=== PATIENT | female | born 1945 | race Caucasian/White ===

== ENCOUNTER → 2017-11-13 12:18 | Outpatient (CLI) | payer MEDICARE, OTHER, SELFPAY ==
--- NOTE | 2017-11-13 | DI.MG.S_ITS ---
BILATERAL DIGITAL SCREENING MAMMOGRAM 3D/2D WITH CAD: 11/13/2017 CLINICAL: Routine screening. Comparison is made to exams dated: 11/06/2016 mammogram, 11/06/2015 mammogram, and 10/27/2014 mammogram - [facility]. There are scattered fibroglandular elements in both breasts. Current study was also evaluated with a Computer Aided Detection (CAD) system. No significant masses, calcifications, or other findings are seen in either breast. There has been no significant interval change. IMPRESSION: NEGATIVE There is no mammographic evidence of malignancy. A 1 year screening mammogram is recommended. This exam was interpreted at Station ID: [id number]. NOTE: For mammograms, a report in lay terms will be sent to the patient. Approximately 15% of breast malignancies will not be visualized mammographically. In the management of a palpable breast mass, a negative mammogram must not discourage biopsy of a clinically suspicious lesion. Electronically Signed By: Kee chacon/candido:11/13/2017 14:55:11 copy to: Paulette Graham letter sent: Normal Exam ACR BI-RADS Category 1: Negative 3341F
== END ==
PROVIDERS: Family Provider Obstetrics & Gynecology; PCP Family Medicine; Visit Provider Family Medicine
DX: Z12.31 Encounter for screening mammogram for malignant neoplasm of breast (principal)
CPT/HCPCS: 77063; 77067

== ENCOUNTER → 2017-11-24 16:30 | Outpatient (CLI) | payer MEDICARE, OTHER, SELFPAY ==
--- NOTE | 2017-11-24 16:33 | DI.RAD.S_ITS ---
PROCEDURE: XR LUMBAR SPINE 2-3V INDICATIONS: LOW BACK PAIN TECHNIQUE: 3 views of the lumbar spine were acquired. COMPARISON: [facility], MANISHA, SPINE LUMB 2 OR 3VW, 10/02/2016, 15:54. [facility], MANISHA, L-SPINE 2-3 VIEWS, 12/28/2015, 12:26. FINDINGS: Bones: 5 [id number] vertebrae are present. There is accentuated lordosis with mild retrolisthesis at L1-2 and L2-3. Disc spacers at L4-5 and L5-S1 with posterior fixation hardware appearing intact. Disc narrowing L1-2 and L2-3. No evidence of loosening.. No vertebral body compression fractures. No suspicious bony lesions. Soft tissues: Overlying bowel gas pattern is normal. No suspicious soft tissue calcifications. Surgical clips right upper quadrant. Mild vascular calcifications. IMPRESSION: 1. Postoperative changes appear stable. 2. Degenerative disc disease and mild retrolisthesis L1-L2 3, unchanged. Dictated by: Driss Ames M.D. on 11/24/2017 at 16:51 Approved by: Driss Ames M.D. on 11/24/2017 at 16:54
== END ==
PROVIDERS: Family Provider Obstetrics & Gynecology; PCP Family Medicine; Referring Provider Orthopaedic Surgery Orthopaedic Surgery of the Spine; Visit Provider Family Medicine
DX: M51.36 Other intervertebral disc degeneration, lumbar region (principal); M54.5 Low back pain
CPT/HCPCS: 72100

== ENCOUNTER → 2018-02-15 12:49 | Outpatient (CLI) | payer MEDICARE, OTHER, SELFPAY ==
--- NOTE | 2018-02-15 | DI.US.S_ITS ---
PROCEDURE: US PELVIC COMPLETE INDICATIONS: OVARIAN CYST TECHNIQUE: Real-time scanning was performed of the pelvic organs, with image documentation. Additional endovaginal scanning was necessary due to incomplete visualization of the adnexal and endometrial structures by transabdominal scanning. COMPARISON: [facility], , PELVIC COMPLETE, 10/08/2016, 12:23. FINDINGS: Transabdominal scanning: Limited scanning through the kidneys shows no hydronephrosis. No pathologic free abdominal or pelvic fluid. Endovaginal scanning: Uterus: Uterus is normal in size at 5.9 x 3.1 x 4.1 cm. The endometrium measures 5.5 mm in combined thickness. Ovaries: Simple cyst again seen arising from the left adnexa slightly increased in size measuring 4.3 x 2.4 x 3.3 cm. No normal ovarian tissue seen bilaterally. IMPRESSION: Simple left adnexal cystic structure redemonstrated and is slightly increased in size from prior examination. Cystic ovarian neoplasm remains within the differential diagnosis in a patient of this age. If indicated, a pre and post contrast gynecologic protocol MRI could be performed (assuming that there is no contraindication). Dictated by: Robbin MYERS Interpreted: Doug Phipps MD on 02/15/2018 at 14:08 Approved by: Doug Phipps M.D. on 02/15/2018 at 15:20
== END ==
PROVIDERS: Family Provider Obstetrics & Gynecology; PCP Family Medicine; Visit Provider Family Medicine
DX: N83.202 Unspecified ovarian cyst, left side (principal); N83.292 Other ovarian cyst, left side
CPT/HCPCS: 76830; 76856

== ENCOUNTER → 2018-07-14 15:19 | Outpatient (CLI) | payer MEDICARE, OTHER, SELFPAY ==
[2018-07-14 15:56] LABS: Alanine Aminotransferase 29 IU/L (9-52); Albumin 4.4 g/dL (3.5-5.0); Albumin Globulin Ratio 1.7 (1.0-2.8); Alkaline Phosphatase 74 U/L (38-126); Aspartate Aminotransferase 46 IU/L (14-36); BUN Creatinine Ratio 25.5 (6-22); Bilirubin Total 0.4 mg/dL (0.2-1.3); Blood Urea Nitrogen 28 mg/dL (7-17); Calcium 9.6 mg/dL (8.4-10.2); Carbon Dioxide 26 mmol/L (22-32); Chloride 102 mmol/L (98-107); Globulin 2.6 g/dL (1.7-4.1); Glucose 137 mg/dL (80-110); HEMOLYSIS < 15 (0-50); Potassium 4.9 mmol/L (3.4-5.1); Sodium 138 mmol/L (137-145)
[2018-07-14 15:57] LABS: C-Reactive Protein Quant < 0.5 mg/dL (<1.0)
[2018-07-14 16:15] LABS: Erythrocyte Sedimentation Rate 36 MM/HR (0-20)
== END ==
PROVIDERS: Family Provider Obstetrics & Gynecology; PCP Family Medicine; Visit Provider Physician Assistant Medical
DX: M12.9 Arthropathy, unspecified (principal)
CPT/HCPCS: 36415; 80053; 85651; 86140

== ENCOUNTER → 2018-08-09 10:49 | Outpatient (CLI) | payer MEDICARE, OTHER, SELFPAY ==
--- NOTE | 2018-08-09 | DI.US.S_ITS ---
PROCEDURE: US RENAL COMPLETE INDICATIONS: TYPE 2 DIABETES WITH RENAL COMPLICATIONS TECHNIQUE: Real-time scanning was performed of the kidneys and bladder, with image documentation. COMPARISON: [facility], , RENAL COMPLETE, 09/28/2006, 14:29. FINDINGS: Kidneys: Kidneys are normal in size. Right kidney measures 11.1 cm long; left kidney measures 11.3 cm long. Right renal cortical thickness is 1.4 cm; left renal cortical thickness is 1.5 cm. Renal cortical echotexture is normal. No hydronephrosis or nephrolithiasis. No suspicious solid mass lesions. 3.4 x 2.6 x 2.5 cm thin-walled, cystic lesion arises from the lower pole of the left kidney. A 1.1 cm cortical cyst is present in the mid pole. Bladder: Pre-void bladder volume is 597 mL. Post-void residual is 64 mL. Pre-void images demonstrate no intraluminal masses or stones. On pre-void images, neither ureteral jets are noted with color Doppler interrogation. (Of note, ureteral jets may not be detectable in up to 25% of cases due to insufficient differences in specific gravity between ureteral and bladder urine). Miscellaneous: No free pelvic fluid. IMPRESSION: 1. Interval enlargement of simple left renal cyst since the previous study, expected. 2. Otherwise normal renal morphology. 3. Moderate sized postvoid residual in the urinary bladder. Dictated by: Kasie Romero M.D. on 08/09/2018 at 13:48 Approved by: Kasie Romero M.D. on 08/09/2018 at 13:50
== END ==
PROVIDERS: PCP Family Medicine; Visit Provider Family Medicine
DX: E11.29 Type 2 diabetes mellitus with other diabetic kidney complication (principal); N28.9 Disorder of kidney and ureter, unspecified; N28.1 Cyst of kidney, acquired
CPT/HCPCS: 76770

== ENCOUNTER → 2018-10-04 13:08 | Outpatient (CLI) | payer MEDICARE, OTHER, SELFPAY ==
--- NOTE | 2018-10-04 | DI.CT.S_ITS ---
PROCEDURE: CT LUMBAR SPINE WO CON INDICATIONS: Spondylolisthesis, lumbar region TECHNIQUE: Noncontrast 3 mm thick sections acquired from the T12 level to the sacrum. Sagittal and coronal reformats were constructed. For radiation dose reduction, the following was used: automated exposure control. COMPARISON: [facility], , L-SPINE 2-3 VIEWS, 12/28/2015, 12:26. [facility], MR, L-SPINE WITHOUT CONTRAST, 01/09/2012, 10:42. [facility], MR, L-SPINE WITHOUT CONTRAST, 01/01/2010, 19:25. [facility], MR, L-SPINE WITHOUT CONTRAST, 09/17/2015, 14:16. [facility], MR, L-SPINE WITHOUT CONTRAST, 02/09/2014, 15:53. [facility], , XR LUMBAR SPINE 2-3V, 11/24/2017, 16:33. FINDINGS: Image quality: Diagnostic. Bones: No acute vertebral body compression fractures. No suspicious lytic or blastic bony lesions. Central spinal caliber is of normal overall caliber. No pars defects. Postoperative changes are seen, with bilateral pedicle screws at L4, L5, and S1. The screws appear well placed. Vertical fixation rods are seen. Disc spacers are seen at L4-L5 and L5-S1. There is streak artifact associated with the metallic hardware. There has been removal of portions of the posterior elements. T12-L1: No significant abnormality is seen, although note is made of bridging endplate osteophytes anteriorly. L1-L2: Mild loss of disc height is seen. Bridging endplate osteophytes are seen anteriorly. There is mild to moderate right-sided and no significant left-sided neural foraminal narrowing seen. L2-L3: Minimal retrolisthesis is seen at this level. There is mild loss of disc height seen. Endplate irregularity is seen, including posteriorly directed endplate osteophytes, as on series 4 image 30. Moderate disc bulge is seen. There is moderate bilateral neural foraminal narrowing seen. Moderate to severe central canal narrowing is seen, as on series 8 image 37. There are central canal narrowing appears progressed compared to 2016. L3-L4: Minimal retrolisthesis is seen at this level. Moderate loss of disc height is seen. Endplate irregularity and sclerosis can be seen. Vacuum disc phenomenon is seen at this level. Moderate to prominent disc bulge is seen at this level. Moderate to severe bilateral neural foraminal narrowing is seen. Moderate to severe central canal narrowing is seen. These degenerative changes have progressed compared to the prior MRI. L4-L5: Postoperative changes are seen at this level. [id number] bilateral neural foraminal narrowing is seen. No significant central canal narrowing is seen. This level overall appears improved compared to 2016. L5-S1: Postoperative changes are seen at this level. Prominent facet hypertrophy is seen. There is moderate right-sided and mild to moderate left-sided neural foraminal narrowing seen. No significant central canal narrowing is seen. This level appears improved compared to the preoperative 2016 MRI. Soft tissues: No retroperitoneal masses or hematomas. Visualized aorta is normal in caliber. Atherosclerotic calcification is noted. Cholecystectomy clips are seen. IMPRESSION: Lumbosacral postoperative changes are seen, with improvement in the degrees of degenerative narrowing compared to the preoperative MRI. Progression of degenerative change at L2-L3 and L3-L4 compared to 2016. Dictated by: Doug Phipps M.D. on 10/04/2018 at 15:29 Approved by: Doug Phipps M.D. on 10/04/2018 at 15:39
== END ==
PROVIDERS: PCP Family Medicine; Visit Provider Orthopaedic Surgery Orthopaedic Surgery of the Spine
DX: M43.16 Spondylolisthesis, lumbar region (principal); M47.816 Spondylosis without myelopathy or radiculopathy, lumbar region
CPT/HCPCS: 72131

== ENCOUNTER → 2018-11-30 09:06 | Outpatient (CLI) | payer MEDICARE, OTHER, SELFPAY ==
--- NOTE | 2018-11-30 | DI.MG.S_ITS ---
BILATERAL DIGITAL SCREENING MAMMOGRAM 3D/2D WITH CAD: 11/30/2018 Comparison is made to exams dated: 11/13/2017 mammogram, 11/06/2016 mammogram, and 11/06/2015 mammogram - [facility]. There are scattered fibroglandular elements in both breasts. Current study was also evaluated with a Computer Aided Detection (CAD) system. No significant masses, calcifications, or other findings are seen in either breast. There has been no significant interval change. IMPRESSION: NEGATIVE There is no mammographic evidence of malignancy. A 1 year screening mammogram is recommended. This exam was interpreted at Station ID: [id number]. NOTE: For mammograms, a report in lay terms will be sent to the patient. Approximately 15% of breast malignancies will not be visualized mammographically. In the management of a palpable breast mass, a negative mammogram must not discourage biopsy of a clinically suspicious lesion. Electronically Signed By: Shalom roberts/candido:11/30/2018 12:22:01 letter sent: Normal Exam ACR BI-RADS Category 1: Negative 3341F
== END ==
PROVIDERS: PCP Family Medicine; Visit Provider Family Medicine
DX: Z12.31 Encounter for screening mammogram for malignant neoplasm of breast (principal)
CPT/HCPCS: 77063; 77067

== ENCOUNTER → 2019-01-30 13:50 | Outpatient (CLI) | payer MEDICARE, OTHER, SELFPAY | PROVIDERS: PCP Family Medicine; Visit Provider Physician Assistant | DX: N30.01 Acute cystitis with hematuria (principal) | CPT/HCPCS: 87077; 87086; 87185; 87186 ==

== ENCOUNTER 2019-04-04 06:05 | Inpatient (IN) | payer MEDICARE, OTHER, SELFPAY ==
[2019-03-16 13:44] VITALS: BMI 30.7
[2019-04-04] VITALS (16 sets, daily range): BP systolic 134–179; BP diastolic 56–86; PULSE 69–97; RESP 9–18; TEMP 36.1–37.2; O2SAT 93–100; BMI 30.7
--- NOTE | 2019-04-04 | DI.RAD.S_ITS ---
PROCEDURE: XR LUMBAR SPINE 2-3V INDICATIONS: L3-4 TLIF WITH FUSION TECHNIQUE: 2 views of the lumbar spine were acquired. COMPARISON: [facility], RF, LUMBAR TRANSFORAMINAL LUKAS, 11/09/2018, 10:38. [facility], CR, XR LUMBAR SPINE 2-3V, 11/24/2017, 16:33. FINDINGS: There is discectomy and posterior fusion at L3-L4. Prior discectomy and posterior fusion at L4-L5 and L5-S1. IMPRESSION: Discectomy and posterior fusion at L3-L4. Dictated by: Hope Caputo M.D. on 04/04/2019 at 13:19 Approved by: Hope Caputo M.D. on 04/04/2019 at 13:36
[2019-04-04] MEDS: LACTATED RINGERS 1,000 ML 42 ML IV ×2 (07:24→10:35)
[2019-04-04] MEDS: CLINDAMYCIN 600 MG/50 ML PIGGYBACK 50 MG IV (07:58)
--- NOTE | 2019-04-04 07:58 | PM.PREOP ---
Pre-operative Note Interval Note History & Physical reviewed/Exam performed by Physician: Yes Changes to H&P: No
--- NOTE | 2019-04-04 08:35 | SUR.OPER ---
Prone on spine table, head in foam head support, padded chest and pelvic supports, gel pad at knees, lower legs supported by pillows; nipples, genitalia and toes free of pressure, arms secured on foam padded arm boards at <90 degrees abduction. Tape over blanket at thigh secured to table.
[2019-04-04] MEDS: BUPIVACAINE 0.25% W/ EPI 30 ML VIAL INJ (08:43)
[2019-04-04] MEDS: BUPIVACAINE LIPOSOME 266 MG/20 ML VIAL INJ (08:44)
[2019-04-04] MEDS: ACETAMINOPHEN IV 1,000 MG/100 ML VIAL 400 MG IV (10:50)
--- NOTE | 2019-04-04 10:53 | PC.NURSE ---
Day shift: Pt not on AC unit at this time.
--- NOTE | 2019-04-04 11:42 | PM.OP.1 ---
Operative Date/Time/Diagnoses Date of procedure: 04/04/19 Time of procedure: 08:08 Pre-op diagnosis: 1. Hx of L4-S1 TLIF 2. L3-4 spondylolisthesis, spinal stenosis 3. L3-S1 spondylosis with radiculopathy Post-op diagnosis: same Procedure & Clinicians Procedure: 1. L3-4 Postero-lateral and posterior interbody fusion 2. L3-4 interbody cage placement. 3. L3-4 decompressive laminectomy with bilateral facetecomies 4. L3-4 L4-5 L5-S1 Posterior segmental instrumentation 5. L4-5 L5-S1 posterior segmental hardware removal 6. L4-5 L5-S1 exploration of fusion with left hemilaminectomy 7. L4-5 posterolateral fusion 8. Chilmark of bone marrow from iliac crest 9. Utilization of microsurgical technique and operating microscope Same procedure as scheduled: Yes Indications: Patient has been having chronic back pain and worsening lumbar radiculopathy. Patient failed multiple conservative management with worsening pain weakness and numbness in her lower extremity. Patient has been having difficulty performing activity of daily living. After discussing risks benefits of treatment options, patient elected proceed with surgery. Surgeon: Ian Andrade Oxygen Plant Operator: Lorraine Pereira Click Yes if Unassisted: No Anesthesia Type: General Operative Notes Closure Type: primary Specimen(s): none sent Prosthetic devices, grafts, tissues, transplants, or devices: Globus revolve screws, Rise cage Applied: catheter Estimated Blood Loss (mL): 100 Blood products transfused: none Procedure in detail: Patient was seen in the preoperative area. Risks and benefits of the surgery was discussed with the patient. Informed consent was obtained from the patient and placed in the chart. Surgical site was marked. Patient was taken to the operative room. General anesthesia was administered. Prophylactic antibiotic was given to the patient less than 30 min before the incision was made. Patient was placed into a prone position on the Costa table. Patient's back was then prepped and draped in the sterile fashion. Time-out was performed at this time. Using patient's previous scar incision was made over the L3-S1 interval on the left side. Fascia was incised in line with skin incision. Patient's previously placed hardware over the L4-S1 level was identified by dissecting down to the level the hardware using a Bovie and a Barnhart. The locking caps which was removed using globus screwdriver. The locking jordan was then removed from the tulips of the pedicle screws using a Erica. The pedicle screws were then removed using the screwdriver. The screws were found to have good purchase. The Globus and MARS retractors was then placed into the wound and docked onto the L3 lamina using C-arm guidance. Using microsurgical technique and operating microscope a laminectomy facetectomy was performed by removing the L3 lamina and the L3-4 facet. Patient was found have severe central and foramen stenosis at L3-4 level which was fully decompressed after the laminectomy facetectomy is complete. The disc space at L3-4 level was identified next. And a total diskectomy was performed at L3-4 level. The endplates were decorticated using a rasp and shaver. The total diskectomy and decortication was performed at L3-4 level in order to to accomplish a L3-4 fusion. The local bone from the laminectomy and facetectomy was saved for local bone grafting. After the total diskectomy and decortication was completed, DBM bone graft material was combined with local bone that was harvested earlier. At this time, a separate skin is incision was made over the iliac crest. A Jamshidi needle was inserted into the iliac crest through a separate skin incision. 5 cc of bone marrow aspiration was obtained through the separate skin incision using a Jamshidi needle from the iliac crest. The bone marrow aspiration was combined with local bone and the via cell bone grafting material. The bone grafting material was placed into the L3-4 interbody space along with a expandable cage. The cage was expanded to its maximum height using the torque limiting screwdriver. At this time a mirror image incision was made on the left side. The fascia was incised in line with the skin incision. Patient's previously placed hardware on the left side was then removed in the same fashion as it was on the right side. The hardware was also found to have good purchase. The fusion mass on the right side was exposed by performing a right-sided hemilaminectomy at L4-5 L5-S1 level. The hemilaminectomy was performed using the Kerrison rongeur to undercut the lamina as well removing additional epidural scar tissue for purpose of decompressing the epidural space. The fusion mass was explored and was found have visible motion indicating pseudoarthrosis at L4-5 level and a solid fusion at L5-S1 level. Globus MARS retractor was inserted and docked onto the L3-4 L4-5 posterolateral gutter. Using the power drill, posterior-lateral decortication was performed at L3-4 L4-5 level until bleeding cortical bone was identified. The remaining bone grafting material was placed into the L3-4, L4-5 posterior lateral gutter he order to accomplish posterolateral fusion at the L3-4 L4-5 level. Using the double C-arm technique, pedicle screws were placed into the L3,L4, L5 and S1 pedicles bilaterally. This was done by placing the Jamshidi needle into the pedicles, then placing the guidewires over the Jamshidi needle, and finally placing the cannulated screws over the guidewires bilaterally. After the pedicle screws were placed, 2 titanium rods was locked into the heads of the pedicle screws using locking caps and torque limiting screwdriver. After all the hardware was placed, and confirmed with AP and lateral C-arm imaging, the wound was then irrigated with sterile normal saline and packed with Ray-David gauze for 3 min to accomplish hemostasis. After the gauze was removed the deep fascia was closed with #1 Vicryl suture. The subcutaneous layer was closed with 2-0 Vicryl. The skin was closed with skin erasmo. Patient tolerated the procedure well. There were no complications. Complications: none Post-operative Condition: stable Disposition: PACU Plan for aftercare: Admit to inpatient hospital
[2019-04-04] MEDS: HYDROMORPHONE 2 MG INJ 0.5 MG IV ×4 (12:04→12:39)
[2019-04-04] MEDS: hydrOXYzine 50 MG/ML INJ 25 MG IM (12:18)
--- NOTE | 2019-04-04 12:45 | SUR.PHASEI ---
Assumed care, back dressing clean, dry, intact.
--- NOTE | 2019-04-04 12:57 | SUR.PHASEI ---
Patient reported feeling of indigestion. She described it as a fullness in her throat. She also reported taking nexium for indigestion this morning. Pt denied nausea, chest pain, SOB. Attempted to notify Dr. Solano but MD is in the OR and unavailable.
--- NOTE | 2019-04-04 13:05 | SUR.PHASEI ---
Dr. Solano notified regarding patient c/o indigestion, no new orders. Patient reported indigestion improving. Report called to Danny.
--- NOTE | 2019-04-04 13:27 | SUR.PHASEI ---
Patient transferred to the floor with belongings bag and cane. VS stable. Back dressing checked with RN. Report given to Danny. Marcellus patent. IV saline locked.
[2019-04-04] MEDS: SODIUM CHLORIDE 0.9% 1,000 ML 100 ML IV ×2 (14:08→23:27)
[2019-04-04] MEDS: OXYCODONE IR 10 MG TABLET PO ×4 (14:12→23:26)
[2019-04-04] MEDS: CLINDAMYCIN 600 MG/50 ML PIGGYBACK 100 MG IV ×2 (14:13→20:06)
[2019-04-04] MEDS: hydrOXYzine pamoate 25 MG CAPSULE PO ×2 (15:38→23:26)
[2019-04-04] MEDS: SENNOSIDES 8.6 MG TABLET 17.2 MG PO (20:02)
[2019-04-04] MEDS: DOCUSATE 100 MG CAPSULE PO (20:02)
[2019-04-04] MEDS: CARVEDILOL 12.5 MG TABLET PO (20:06)
[2019-04-04] MEDS: HYDROMORPHONE 0.5 MG INJ IV (20:11)
--- NOTE | 2019-04-04 21:13 | PC.NURSE ---
PATIENT REQUESTED A BLADDER SCAN BE DONE, HERRERA IN PLACE HAS HAD APPROX. 1400MLS OUT. STATED SHE HAD BLADDER PAIN,SCAN HAD 20MLS. X1 DOSE OF IVP DILAUDID GIVEN, PATIENTS STATES FEELS BETTER NOW. TURNED TO LEFT SIDE FOR SLEEP.
--- NOTE | 2019-04-04 23:41 | PC.NURSE ---
Addendum entered by Yudith Desir R.N. 04/05/19 06:28: Patient states pain is worse and > 10/10; medicated with IV Dilaudid, repositioned and ice applied. Requested SCD's be removed at this time as she thinks the pumping is making it worse. Addendum entered by Yudith Desir R.N. 04/05/19 05:17: Has been sleeping soundly all night. When awakened, states pain is uncomfortable at 4/10; requested/medicated with Oxycodone, repositioned and ice applied to back. HRR but tachy this morning at 114 bpm. Original Note: Patient is alert and oriented. Breath sounds CTA with RA sat of 100%. HRR. Denies nausea. BT present but denies flatus; abdomen is soft. Indwelling catheter is patent; urine clear rohit. Able to turn with assistance. Dressing to back is CDI. Complains of 8/10 back/generalized pain; medicated with Oxycodone + Vistaril, repositioned and ice applied. Chronic bilateral foot neuropathy unchanged since pre-op. CMS otherwise intact. Wearing bilateral foot SCD's. Fall risk score is high and bed alarm is activated.
[2019-04-05] VITALS (10 sets, daily range): BP systolic 127–161; BP diastolic 55–74; PULSE 76–118; RESP 16–19; TEMP 36.4–37.7; O2SAT 83–96
[2019-04-05] MEDS: OXYCODONE IR 10 MG TABLET PO (05:15)
[2019-04-05] MEDS: HYDROMORPHONE 0.5 MG INJ IV (06:22)
[2019-04-05 06:57] LABS: Hematocrit 28.4 % (36-46)
--- NOTE | 2019-04-05 07:49 | P.PN_ITS ---
Subjective Subjective Date Patient Seen: 04/05/19 Time Patient Seen: 07:49 Interval history: POD 1 s/p TLIF with Dr. Andrade. Patient complains of moderate - severe pain all over her body, described as a burning sensation or related to her fibromyalgia. She is having difficulty mobilizing secondary to pain. Pain managed with dilaudid IV and oxycodone. Urinary catheter in place. Patient will mobilize with PT today. After meeting patient, nurse informed me of patient spO2 83 on room air. Patient denies fever, chills, nausea, vomiting, chest pain, shortness of breath, calf pain. Exam Vital Signs (past 8 hours): - 04/05/19 05:16 04/05/19 07:15 Temperature 99.9 F H 100 F H Pulse Rate 115 H 108 H Respiratory Rate 19 18 Blood Pressure 147/74 H 161/74 H Pulse Oximetry 93 90 L Oxygen Delivery Method Room Air Oxygen Flow Rate 0 Narrative Exam Narrative: 73 year old female laying in bed, drowsy and in mild discomfort, no apparent distress. A&Ox3. Dressing CDI. Sensory function grossly intact to light touch in LE bl. Capillary refill <2seconds LE bl. Dorsalis pedis 2+ bl. P atient able to plantar flex/dorsi flex bl. Objective Labs Result Diagrams: 04/05/19 06:41 Labs: Laboratory Results - last 24 hr 04/05/19 06:41 Hgb 10.0 L Hct 28.4 L Assessment & Plan Post-op Postoperative Procedures: Procedures Operation Date: 04/04/19 07:45 Actual Procedures Side Surgeon p L4-S1 HWR,L3-4 TLIF, L3-S1 PSF w/ instrumentation Ian nAdrade MD Postoperative plan narrative: Pain management - hold oxycodone and IV dilaudid due to sedation. Dr. Andrade approved tramadol, patient takes at home - Decadron 6mg IV once for neuropathic pain ; patient is diabetic: monitor BS status, insulin sliding scale low dose Hypoxemia - respiratory therapist consult ordered, nasal canula 2L Physical therapy - continue mobilization, poor progress today Plan for possible removal of urinary catheter tomorrow Patient is most likely going to be discharged to a SNF Time Spent With Patient Time with patient: less than 15 minutes
[2019-04-05] MEDS: CHOLECALCIFEROL (VITAMIN D3) 1,000 UNIT TABLET 2000 UNIT PO (09:19)
[2019-04-05] MEDS: DOCUSATE 100 MG CAPSULE PO ×2 (09:20→21:43)
[2019-04-05] MEDS: LOSARTAN 50 MG TABLET 100 MG PO (09:20)
[2019-04-05] MEDS: ROSUVASTATIN 10 MG TABLET 20 MG PO (09:20)
[2019-04-05] MEDS: ACETAMINOPHEN 325 MG TABLET 650 MG PO ×3 (09:21→17:05)
[2019-04-05] MEDS: CARVEDILOL 12.5 MG TABLET PO ×2 (09:21→21:43)
[2019-04-05] MEDS: MULTIVITAMIN 1 TABLET 1 TAB PO (09:22)
[2019-04-05] MEDS: MAGNESIUM CHLORIDE 64 MG TABLET PO ×2 (09:24→21:44)
[2019-04-05] MEDS: ALLOPURINOL 300 MG TABLET 150 MG PO (09:24)
[2019-04-05] MEDS: DEXAMETHASONE 4 MG/ML VIAL 6 MG IV (09:43)
[2019-04-05] MEDS: SODIUM CHLORIDE 0.9% 1,000 ML 100 ML IV ×2 (09:45→19:32)
--- NOTE | 2019-04-05 09:58 | PT.IIE ---
Current Diagnoses Other spondylosis with radiculopathy, lumbosacral region (04/04/19) Spinal stenosis, lumbar region without neurogenic claudication (04/04/19) Arthrodesis status (04/04/19) Surgery Performed Operation Date: 04/04/19 07:45 Actual Procedures p L4-S1 HWR,L3-4 TLIF, L3-S1 PSF w/ instrumentation - Ian Andrade MD Surgical History (Last Updated 03/16/19 @ 15:02 by Irene Zaragoza RN) H/O: hysterectomy (Acute) History of arthroplasty of right knee (Acute ~2001) History of colonoscopy (Acute) History of dilation and curettage (Acute) History of surgery (Acute ~1987) Hx of arthroscopy of right knee (Acute 09/07/85) Hx of bladder repair surgery (Acute 03/02/18) Hx of cholecystectomy (Acute 04/15/89) Hx of repair of left rotator cuff (Acute ~2012) Hx of spinal fusion (Acute 12/28/15) Status post total shoulder arthroplasty (Acute ~2012) Medical History (Last Updated 03/16/19 @ 14:59 by Irene Zaragoza RN) Anemia (Acute) Arthritis (Acute) Martinez's esophagus (Acute) Cardiomyopathy (Acute) CKD (chronic kidney disease), stage III (Acute) Colon polyps (Acute) Constipation (Acute) DDD (degenerative disc disease) (Acute) Diabetes (Acute) Easy bruisability (Acute) Eczema (Acute) Elevated cholesterol (Acute) Fibromyalgia (Acute) Frequent urinary tract infections (Acute) GERD (gastroesophageal reflux disease) (Acute) Gout (Acute) Heart murmur (Acute) History of hysteroscopy (Acute 02/15/88) HTN (hypertension) (Acute) Hypokinesis (Acute) Irregular heartbeat (Acute) Kidney cysts (Acute) Kidney disease (Acute) Neuropathy (Acute) Orbital fracture (Acute) Osteoarthritis (Acute) Pain (Acute) Plantar fasciitis (Acute) Pneumonia (Acute) Psoriasis (Acute) PUD (peptic ulcer disease) (Acute) Renal insufficiency (Acute) SCC (squamous cell carcinoma) (Acute) Sciatica (Acute) Sinus bradycardia (Acute) Spinal stenosis (Acute) Toxic shock syndrome (Acute ~1978) Uterine polyp (Acute 06/12/01) Physical Therapy Inpatient Evaluation/Re-Eval M1 PT/OT-IP Prior Functional Status Start: 04/05/19 10:50 Freq: NEEDED Status: Active Protocol: Document 04/05/19 09:58 AB (Rec: 04/05/19 11:10 [id number]) Medical Review Prior Functional Status Medical History Reviewed Yes Communication able to make needs known but seems drowsy/sleepy Mobility and Gait Pt stated that she is modified independent with all mobilities and ambulation using a hurrycane; stated that she had h/o falls Social History Household Members spouse Living Arrangements House Number of Floors (Floors) 3 or More Floors Number of Stairs To Enter/Railing? pt lives in a split level house but stays on main level of the house has 7 steps to enter with R rail (pt stated that she uses the rail and the cane on the other side) Home Environment Standard Height Toilet,Tub/ Shower Home Equipment Front Wheel Walker,Straight Cane,Raised Toilet Seat w/ Armrests,Shower Seat without Backrest,Hand Held Shower,Long Handled Shoe Horn,Supervisor [employer] [facility], Grab Bars Near Toilet,Grab Bars In Shower Employment Status Retired Additional Social History Comment pt has a hurrycane M2 PT-IP Current Condition Start: 04/05/19 10:50 Freq: NEEDED Status: Active Protocol: Document 04/05/19 09:58 AB (Rec: 04/05/19 11:10 [id number]) Physical Therapy Current Condition Current Condition Evaluation Date 04/05/19 Treatment Diagnosis L3-S1 fusion/lami; difficulty in walking Onset Date 04/04/19 Precautions Lumbar Precautions Log Roll,No Twisting,Limit Bending,Lifting Restriction of 10 lbs,Gait Belt above Incisional Area M3 PT-IP Subjective Start: 04/05/19 10:50 Freq: NEEDED Status: Active Protocol: Document 04/05/19 09:58 AB (Rec: 04/05/19 11:10 [id number]) Subjective Physical Therapy Visit Type Type Initial Evaluation Visit Start Time 09:58 Visit Stop Time 10:44 Total Visit Minutes 46 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 Physical Therapy Visit Comments Patient Comments It's too soon for me to do this Therapy Pain Assessment Pain When Pain Assessed At Rest Location lower back Scale Used increase with movement but no pain scale stated Pain Behaviors Guarding Pain Management Techniques Modification of Treatment,Re- positioning M4 PT-IP Mobility and Gait Start: 04/05/19 10:50 Freq: NEEDED Status: Active Protocol: Document 04/05/19 09:58 AB (Rec: 04/05/19 11:10 AB [id number]) PT-Bed Mobility Assessment Rolling Type of Rolling Log Rolling Level of Assist 1 Person Assistance,2 Person Assistance Supine to Sit Supine to Sit Maximum Assistance,2 Person Assistance Sit to Supine Sit to Supine Maximum Assistance,2 Person Assistance Scooting Scooting to Edge of Bed Maximum Assistance PT-Transfer Assessment Sit to and From Stand Sit to and from Stand Maximum Assistance,2 Person Assistance,Use of Upper Extremities Equipment Transfer Assistive Device Gait Belt,Front Wheeled Walker Orthotic/Prosthetic Devices or Brace: No Comments Mobility Comments pt seems drowsy but able to answer questions and follow directions. nurse informed PT that pain meds was not given due to pt had pain meds this morning and has decrease level of alertness, tachycardic and has O2 sat decreasing to the 80s. Checked vitas: BP: 166/ 83 O2 sat 94% at 2L/min MI: restin to 114 with activity 119 to 121 pt completed bed mobility log roll max A and max cues, completed supine to sit max A x 2 and max cues. required mod to max A to maintain sitting on EOB and assisted in repostioning max A x 1-2 BP sittin/72O2 sat 94% MI 121 completed sit to stand max A x 2 and max cues. (+) shakiness and B knee buckling requiring assist to stabilize. once pt was steady, attempted transfer to the chair but B knee buckled again and has to be assisted to sit back on bed. completed sit to supine max A x 2 and max cues. required max A x 2 for positioning in bed. left pt in room with OT and spouse. Gait Assessment Comments Gait Comments unable at this time PT-Balance Assessment Sitting Balance and Reactions Static Sitting Balance Ability Fair Dynamic Sitting Balance Ability Poor Standing Balance and Reactions Static Standing Balance Ability Poor Dynamic Standing Balance Ability Poor Device Used FWW M5 PT-IP Objective Assessments Start: 04/05/19 10:50 Freq: NEEDED Status: Active Protocol: Document 04/05/19 09:58 AB (Rec: 04/05/19 11:10 AB [id number]) Orientation Orientation/Cognition Level of Alertness Lethargic Orientation Name,Date,Place,Situation Safety Awareness Decreased Safety Awareness Memory Description Short Term Impaired Gross Range of Motion Lower Extremity ROM Assessment Within Functional Limits Strength Lower Extremity Strength Assessment Bilaterally Impaired Comments Strength Comments R hip: 3+/5 L hip 4-/5 R knee: 3+/5 L knee 3+/5; RLE slightly stronger than LLE Sensation Assessment Sensation Gross Sensation Right LE Impaired,Left LE Impaired Light Touch Impaired Proprioception (Position) Impaired Sensation Description Numbness,Tingling Comments Sensation Comments able to determine light touch but stated that sensation is less Muscle Tone Muscle Tone WNL Yes M6 PT-IP Treatment Start: 04/05/19 10:50 Freq: NEEDED Status: Active Protocol: Document 04/05/19 09:58 AB (Rec: 04/05/19 11:10 AB [id number]) Physical Therapy Treatment Education Education Provided Precautions,Weight Bearing Status,Post-Op Packet,Safety M7 PT-IP Assessment and Plan Start: 04/05/19 10:50 Freq: NEEDED Status: Active Protocol: Document 04/05/19 09:58 AB (Rec: 04/05/19 11:10 AB [id number]) PT Summary Assessment and Plan Potential Rehabilitation Potential Fair Status of Condition at Evaluation Evolving Summary Impairments Pain,ROM,Strength,Balance, Coordination,Sensation,Tone, Cognition,Bed Mobility, Transfers,Gait,Activity Tolerance Assessment Summary pt requiring 2 person max A with bed mobility and is total A x 2 with transfers recommending mechanical lift transfer with nursing at this time for safety due to pt's B knees buckling during standing . Pt will require SNF rehab to improve strength and mobility. Goals Bed Mobility Goal Contact Guard Assistance Transfer Goal Contact Guard Assistance,Front Wheeled Walker Gait Goal Contact Guard Assistance,Front Wheel Walker Gait Distance 50 Other Goals up/down 7 steps R rail ascending + hurrycane CGA Days to Meet Goals 10 Frequency of Treatment Frequency Of Treatment Twice a Day Treatment Plan Physical Therapy Treatment Plan Bed Mobility Training,Transfer Training,Gait Training, Therapeutic Exercise,Balance Retraining,Post Op Education, Discharge Planning,Hot or Cold Pack,Neuromuscular Re-ed, Coordination Retraining,Manual Therapy Other Recommendations and Next Treatment transfers Focus Recommendations To Nursing Amount of Assist Needed 2 Person Assist,Mechanical Lift Discharge Recommendations PT Discharge Recommendations SNF Rehab
--- NOTE | 2019-04-05 10:16 | OT.IP.EVAL ---
Current Diagnoses Other spondylosis with radiculopathy, lumbosacral region (04/04/19) Spinal stenosis, lumbar region without neurogenic claudication (04/04/19) Arthrodesis status (04/04/19) Surgery Performed Operation Date: 04/04/19 07:45 Actual Procedures p L4-S1 HWR,L3-4 TLIF, L3-S1 PSF w/ instrumentation - Ian Andrade MD Past Medical History (Last Updated 03/16/19 @ 14:59 by Irene Zaragoza RN) Anemia (Acute) Arthritis (Acute) Martinez's esophagus (Acute) Cardiomyopathy (Acute) CKD (chronic kidney disease), stage III (Acute) Colon polyps (Acute) Constipation (Acute) DDD (degenerative disc disease) (Acute) Diabetes (Acute) Easy bruisability (Acute) Eczema (Acute) Elevated cholesterol (Acute) Fibromyalgia (Acute) Frequent urinary tract infections (Acute) GERD (gastroesophageal reflux disease) (Acute) Gout (Acute) Heart murmur (Acute) History of hysteroscopy (Acute 02/15/88) HTN (hypertension) (Acute) Hypokinesis (Acute) Irregular heartbeat (Acute) Kidney cysts (Acute) Kidney disease (Acute) Neuropathy (Acute) Orbital fracture (Acute) Osteoarthritis (Acute) Pain (Acute) Plantar fasciitis (Acute) Pneumonia (Acute) Psoriasis (Acute) PUD (peptic ulcer disease) (Acute) Renal insufficiency (Acute) SCC (squamous cell carcinoma) (Acute) Sciatica (Acute) Sinus bradycardia (Acute) Spinal stenosis (Acute) Toxic shock syndrome (Acute ~1978) Uterine polyp (Acute 06/12/01) Surgical History (Last Updated 03/16/19 @ 15:02 by Irene Zaragoza RN) H/O: hysterectomy (Acute) History of arthroplasty of right knee (Acute ~2001) History of colonoscopy (Acute) History of dilation and curettage (Acute) History of surgery (Acute ~1987) Hx of arthroscopy of right knee (Acute 09/07/85) Hx of bladder repair surgery (Acute 03/02/18) Hx of cholecystectomy (Acute 04/15/89) Hx of repair of left rotator cuff (Acute ~2012) Hx of spinal fusion (Acute 12/28/15) Status post total shoulder arthroplasty (Acute ~2012) Occupational Therapy Inpatient Evaluation/Re-Eval M1 PT/OT-IP Prior Functional Status Start: 04/05/19 12:25 Freq: NEEDED Status: Active Protocol: Document 04/05/19 12:26 [facility] (Rec: 04/05/19 12:42 [facility] [id number]) Medical Review Prior Functional Status Medical History Reviewed Yes Communication able to make needs known but seems drowsy/sleepy Mobility and Gait Pt stated that she is modified independent with all mobilities and ambulation using a hurrycane; stated that she had h/o falls Activities of Daily Living and IADL's Pt states has a lady come to do cleaning , but otherwsie was doing all ADl's, IADl's , bils, and medications. Social History Household Members spouse Living Arrangements House Number of Floors (Floors) 3 or More Floors Number of Stairs To Enter/Railing? pt lives in a split level house but stays on main level of the house has 7 steps to enter with R rail (pt stated that she uses the rail and the cane on the other side) Home Environment Standard Height Toilet,Tub/ Shower Home Equipment Front Wheel Walker,Straight Cane,Raised Toilet Seat w/ Armrests,Shower Seat without Backrest,Hand Held Shower,Long Handled Shoe Horn,[place], Grab Bars Near Toilet,Grab Bars In Shower Employment Status Retired Additional Social History Comment pt has a hurrycane M2 OT-IP Current Condition Start: 04/05/19 12:25 Freq: Status: Active Protocol: Document 04/05/19 12:26 [facility] (Rec: 04/05/19 12:42 [facility] [id number]) Occupational Therapy Current Condition Current Condition Evaluation Date 04/05/19 Treatment Diagnosis S/P L4-S1, hWR L3-4 TLIF, L3- S1 PSF decreased self care & mobility Diagnosis Onset Date 04/04/19 Post Operative Precautions Lumbar Precautions Log Roll,No Twisting,Limit Bending,Lifting Restriction of 10 lbs,Gait Belt above Incisional Area Weight Bearing Status Weight Bearing Status Weight Bear as Tolerated M3 OT- IP Subjective and Pain Start: 04/05/19 12:25 Freq: Status: Active Protocol: Document 04/05/19 12:26 [facility] (Rec: 04/05/19 12:42 [facility] [id number]) OT- Subjective Occupational Therapy Visit Type Type Initial Evaluation Visit Start Time 10:16 Visit Stop Time 10:51 Total Visit Minutes 35 Occupational Therapy Visit Comments Patient Comments Pt a bit groogy and agreed to get up. Patient/Caregiver Goals pt wanting to go home when medically ready. OT Pain Assessment Pain When Pain Assessed At Rest Pain Present Pain Present Pain Reported Location lower back Intensity 7 Scale Used Numeric (1 - 10) M4 OT- IP ADL's Start: 04/05/19 12:25 Freq: Status: Active Protocol: Document 04/05/19 12:26 [facility] (Rec: 04/05/19 12:42 [facility] [id number]) OT ADL-Grooming General Evaluation Grooming Ability Standby Assistance Comments OT Grooming Comments While sitting in bed able to wash her face and hands after set-up. OT ADL-Dressing General Eval Lower Body Dressing Ability Maximum Assistance Areas Needing Assistance Socks OT ADL-Toileting Comments OT Toileting Comments Pt has barger in. OT ADL-Bathing Comments OT Bathing Comments Not appropriat at this time. M5 OT- IP IADL's Start: 04/05/19 12:25 Freq: Status: Active Protocol: Document 04/05/19 12:26 [facility] (Rec: 04/05/19 12:42 [facility] [id number]) OT-Instrumental Activities of Daily Living Home Safety Awareness Home Safety Comments Pt a bit groggy due to pain medications and has good understanding if going home would be best to assist for medications and finance needs, along with ADl and IADl needs. M6 OT- IP Functional Cognition Start: 04/05/19 12:25 Freq: Status: Active Protocol: Document 04/05/19 12:26 [facility] (Rec: 04/05/19 12:42 [facility] [id number]) Cognitive Factors Limiting Selfcare Function Cognitive Ability Level of Alertness Alert,Drowsy Patient Orientation Name,Place,Situation Attention Span Ability Capable of Focused Attention, Capable of Sustained Attention Ability to Follow Commands Able to Follow One Step Commands Safety Awareness Underestimates Need for Assistance Cognitive Comments Cognitive Assessment Comments Pt groggy and able to state back precautions however needing cues to help incorporate during needs. pt needing simple concrete directions for bed mobility needs. M7 OT- IP Mobility and Balance Start: 04/05/19 12:25 Freq: Status: Active Protocol: Document 04/05/19 12:26 [facility] (Rec: 04/05/19 12:42 [facility] [id number]) OT- Bed Mobility Assessment Rolling Type of Rolling Roll to Left Level of Assistance Maximum Assistance,1 Person Assistance Supine to Sit Supine to Sit Assist Maximum Assistance,2 Person Assistance Sit to Supine Sit to Supine Assist Maximum Assistance,2 Person Assistance OT-Transfer Assessment Sit to and From Stand Sit to and from Stand Maximum Assistance,2 Person Assistance Comments Mobility Comments Pt only able to tolerate standing at this time. Pt knees buckling L>R and not able to attempt to transfer at this time. Pt assisted back to bed and bed alarm placed on and call light given to pt. OT- Gait Assessment Comments Gait Ability Comments Not at this time. OT- Balance Assessment Sitting Balance and Reactions Static Sitting Balance Ability Fair Dynamic Sitting Balance Ability Poor Standing Balance and Reactions Static Standing Balance Ability Poor Dynamic Standing Balance Ability Poor M9 OT- IP Assessment and Plan Start: 04/05/19 12:25 Freq: Status: Active Protocol: Document 04/05/19 12:26 [facility] (Rec: 04/05/19 12:42 [facility] [id number]) OT Summary Assessment and Plan Potential Rehabilitation Potential Fair Analytic Complexity at Evaluation Low Summary OT Impairments Pain,Strength,Balance, Functional Cognition, Functional Mobility,Grooming, Dressing,Toileting,Bathing, Toilet Transfers,Shower Transfers Progress Towards Goals Slow Progress due to Pain,Slow Progress due to Activity Tolerance,Slow Progress due to Cognition Assessment Summary Pt low complexity and need extensive assist of two person assist for bed mobility. Pt main barriers are steps, positive for knee buckling, and only able to tolerate standing at this time. Pt will benefit from skilled rehab prior to going home. Goals Grooming Goal Standby Assistance Dressing Goal Minimal Assistance Toileting Goal Minimal Assistance Bathing Goal Moderate Assistance Toilet Transfer Goal Minimal Assistance Shower Transfer Goal Moderate Assistance Patient/Caregiver Education Goal Demonstrate Post-Op Precautions,Caregiver Independent Assisting Patient Days to Meet Goals 10 Frequency of Treatment Frequency Of Treatment Once a Day Treatment Plan OT Treatment Plan ADL Training,Functional Cognition Training,Functional Mobility,Patient/Family Education,Discharge Planning Other Treatment Recommendations and Next Transfer to toilet MODA X 2. Treatment Focus Discharge Recommendations OT Discharge Recommendations SNF Rehab Home Equipment Needs tub bench
--- NOTE | 2019-04-05 10:50 | CM.DANOTE ---
Addendum entered by Ilsa Limon R.N. 04/05/19 14:00: Spoke to patient's son, Ryan. He mentioned that his was more alert after this morning. Mentioned possibility of alf, but he is not sure that she will want to go. stated that his mother, who is currently at [facility] has been to [facility], and that would seem like the logical choice if my needs skilled. is optimistic that patient is improving since pain medications have been cut back. He is feeling like we should await any attempt of contacting [facility] or other facility until she works again with P.T. Patient would also need consent to go, and have referral sent to facility as well. Will continue to communicate with patient and , and see how she does with next P.T. session. Addendum entered by Ilsa Limon R.N. 04/05/19 12:47: Left message for , Yeison, to call this vocational case manager back. Addendum entered by Ilsa Limon R.N. 04/05/19 12:07: Viewed P.T's note, which recommended alf. Patient's legs had buckled during P.T. This was her first time working with the therapy team. had been in, but this vocational case manager had just missed him. Asked patient's permission to call , and she stated, would be ok. Nurse, christian, stated, it may be a little soon to make the determination if she needs alf, for they were cutting back on some of her pain meds secondary to possible over-sedation. Patient was alert when briefly going back into room. Will consult with today as well. P.T. may be going back in later today to work with patient after medications are more adjusted. Original Note: DCP: Case received, EMR reviewed and met with patient. Introduced self and role. Met briefly with patient in her room, she was having some discomfort, but was able to obtain limited baseline activity information. DCP assessment/template completed with information currently available. Patient is a 73 year old female who admitted yesterday morning to the care of the orthopedic team. PCP: Dr. Love. Payer: confirmed: [email or web address] Patient came in for a surgical procedure. She had L3-4 postero-lateral and posterior interbody fusion. Patient has history of spinal stenosis resulting in chronic back pain. Met briefly in patient's room. She was sitting up in bed, quiet. Stated, she was experiencing discomfort. Was able to get some information from patient, but was limited. She mentioned that she lives here in [place] with her , Yeison. She stated that she uses a FWW. Asked her how she was doing, and she stated, not very good. Orthopedist has seen patient, and is noted that she will be working with P.T. Consulted with P.T. already regarding mobility and pain issues. Briefly mentioned alf to patient, but she stated, It's too soon to talk about that. P: DCP will follow closely. She does have Medicare, and is inpatient status, so she will have skilled benefit if here for three days. Will consult with P.T. today to see how she does, and if skilled is recommended. Will then have another conversation with patient regarding skilled facilities. Ilsa Limon RN/Strip Tank Tender
--- NOTE | 2019-04-05 11:02 | PC.NURSE ---
Addendum entered by Luis Villanueva R.N. 04/05/19 13:36: spoke with GLENDY Armas for Dr. Andrade. She spoke with Dr. Andrade. no further decadron as per clarification, okay to try tramadol 50mg q6hr prn instead of oxy. patient takes tramadol at home. Addendum entered by Luis Villanueva R.N. 04/05/19 12:50: patient side-lying with ice pack, sleeping w/ snoring. sat 99% on 2l/nc. hr 79. cont pulse ox in place. left msg on [facility] [place] r/t request for tramadol per patient tolerance at home. awaiting response Original Note: 0915: PATIENT DROWSY, LIPS DRY AND CRUSTED, APPEARS DEHYDRATED. SAT 83% ON RA. TACHY 118 BPM. HRR. CALVES SOFT, ENDORSES MILD DISCOMFORT TO BOTH LEGS, WHICH ARE NOT SWOLLEN AND WITHOUT REDNESS, AND EQUAL SIZE. 3L/NC SAT 93-97%. ORTHO PA NOTIFIED OF THE ABOVE. FOOT SCD'S PUT BACK ON WITH TEACHING R/T RATIONALE, SINCE PATIENT RELUCTANT TO USE. RT IN TO EVAL PATIENT. TEACHING PROVIDED R/T OVER SEDATION RISKS WITH MEDICATIONS. RATES PAIN 4/10 AT REST UP TO 8/10 WITH ACTIVITY. TEACHING R/T TRIAL OF TYLENOL AND IV STEROID TO HELP CONTROL PAIN AND MINIMIZE NARCOTICS AT THIS TIME. PATIENT AGREEABLE. TEACHING R/T USE OF I.S. X10 BREATHS Q1HR W/A. REACHES 1200 CC'S X10. WITH GOOD EFFORT. SPOUSE NOW IN WITH PATIENT. PT/OT HAVE COME IN TO EVAL.
[2019-04-05] MEDS: INSULIN ASPART 100 UNIT/ML INSULN PEN SUBCUT ×3 (12:01→21:40)
[2019-04-05] MEDS: GABAPENTIN 300 MG CAPSULE PO (12:05)
--- NOTE | 2019-04-05 12:45 | PT.IPTN ---
Current Diagnoses Other spondylosis with radiculopathy, lumbosacral region (04/04/19) Spinal stenosis, lumbar region without neurogenic claudication (04/04/19) Arthrodesis status (04/04/19) Surgery Performed Operation Date: 04/04/19 07:45 Actual Procedures p L4-S1 HWR,L3-4 TLIF, L3-S1 PSF w/ instrumentation - Ian Andrade MD Physical Therapy Treatment Note M2 PT-IP Current Condition Start: 04/05/19 10:50 Freq: NEEDED Status: Active Protocol: Document 04/05/19 09:58 AB (Rec: 04/05/19 11:10 AB [id number]) Physical Therapy Current Condition Current Condition Evaluation Date 04/05/19 Treatment Diagnosis L3-S1 fusion/lami; difficulty in walking Onset Date 04/04/19 Precautions Lumbar Precautions Log Roll,No Twisting,Limit Bending,Lifting Restriction of 10 lbs,Gait Belt above Incisional Area M3 PT-IP Subjective Start: 04/05/19 10:50 Freq: NEEDED Status: Active Protocol: Document 04/05/19 12:45 AB (Rec: 04/05/19 14:35 AB [id number]) Subjective Physical Therapy Visit Type Type Treatment Note Visit Start Time 12:45 Visit Stop Time 14:23 Total Visit Minutes 42 Notes pt seen for split visits: 1245 to 1312 and 1408 to 1423 Therapy Pain Assessment Pain When Pain Assessed At Rest Pain Present Pain Present Pain Reported Location lower back Scale Used pain scale not stated Pain Management Techniques Apply Cold,Re-positioning, Timing of Activity with Medications M4 PT-IP Mobility and Gait Start: 04/05/19 10:50 Freq: NEEDED Status: Active Protocol: Document 04/05/19 12:45 AB (Rec: 04/05/19 14:35 AB [id number]) PT-Bed Mobility Assessment Rolling Level of Assist Maximal Assistance Supine to Sit Supine to Sit Maximum Assistance,2 Person Assistance Sit to Supine Sit to Supine Maximum Assistance,2 Person Assistance Scooting Scooting to Edge of Bed Maximum Assistance Scooting Up and Down in Bed Maximum Assistance,Dependent PT-Transfer Assessment Sit to and From Stand Sit to and from Stand Maximum Assistance,2 Person Assistance,Use of Upper Extremities Equipment Transfer Assistive Device Gait Belt,Front Wheeled Walker Transfers Transfer Destination Bed Transfer Technique Stand Step Pivot Transfer Ability Level of Assist Maximum Assistance,2 Person Assistance,Use of Upper Extremities Comments Mobility Comments pt agreed to get up. completed log roll supine to sit max A x 2 and max cues. pt was able to sit on EOB SBA to CGA. completed sit to stand from EOB max A x 2 and max cues and completed stand step pivot transfer using FWW max A x 2 and max cues. (+) B knee buckling during transfers. required max A x 2 for controlled descent into the chair. position pt on the chair. set up pt for lunch. call light and table placed within reach. checked back on pt after lunch and nurse was about to assist pt back to bed. PT/OT took over. pt completed sit to stand from the chair max A x 2 and max cues. requires assist to stabilize B knees. pt completed stand step transfer to the bed using FWW max A x 2 and max cues. pt continues to have (+) knee buckling. completed sit to supine max A x 2 and max cues. postioned pt in bed. call light and table placed within reach. ice pack also provided . bed alarm set up. M5 PT-IP Objective Assessments Start: 04/05/19 10:50 Freq: NEEDED Status: Active Protocol: Document 04/05/19 09:58 AB (Rec: 04/05/19 11:10 AB [id number]) Orientation Orientation/Cognition Level of Alertness Lethargic Orientation Name,Date,Place,Situation Safety Awareness Decreased Safety Awareness Memory Description Short Term Impaired Gross Range of Motion Lower Extremity ROM Assessment Within Functional Limits Strength Lower Extremity Strength Assessment Bilaterally Impaired Comments Strength Comments R hip: 3+/5 L hip 4-/5 R knee: 3+/5 L knee 3+/5; RLE slightly stronger than LLE Sensation Assessment Sensation Gross Sensation Right LE Impaired,Left LE Impaired Light Touch Impaired Proprioception (Position) Impaired Sensation Description Numbness,Tingling Comments Sensation Comments able to determine light touch but stated that sensation is less Muscle Tone Muscle Tone WNL Yes M6 PT-IP Treatment Start: 04/05/19 10:50 Freq: NEEDED Status: Active Protocol: Document 04/05/19 12:45 AB (Rec: 04/05/19 14:35 AB [id number]) Physical Therapy Treatment Education Education Provided Precautions,Safety M7 PT-IP Assessment and Plan Start: 04/05/19 10:50 Freq: NEEDED Status: Active Protocol: Document 04/05/19 12:45 AB (Rec: 04/05/19 14:35 AB [id number]) PT Summary Assessment and Plan Potential Rehabilitation Potential Good Summary Impairments Pain,ROM,Strength,Balance, Coordination,Sensation,Tone, Cognition,Bed Mobility, Transfers,Gait,Activity Tolerance Progress Towards Goals Slow Progress due to Pain,Slow Progress due to Medical Issues Assessment Summary pt continues to require max A x 2 for transfers and continues to have (+) knees buckling during standing and transfers. pt will require SNF rehab to improve strength and mobility. Goals Bed Mobility Goal Contact Guard Assistance Transfer Goal Contact Guard Assistance,Front Wheeled Walker Gait Goal Contact Guard Assistance,Front Wheel Walker Gait Distance 50 Other Goals up/down 7 steps R rail ascending + hurrycane CGA Days to Meet Goals 10 Frequency of Treatment Frequency Of Treatment Twice a Day Treatment Plan Physical Therapy Treatment Plan Bed Mobility Training,Transfer Training,Gait Training, Therapeutic Exercise,Balance Retraining,Post Op Education, Discharge Planning,Hot or Cold Pack,Neuromuscular Re-ed, Coordination Retraining,Manual Therapy Other Recommendations and Next Treatment transfers Focus Recommendations To Nursing Amount of Assist Needed 2 Person Assist,Mechanical Lift Discharge Recommendations PT Discharge Recommendations SNF Rehab
--- NOTE | 2019-04-05 12:50 | OT.IP.TRT ---
Current Diagnoses Other spondylosis with radiculopathy, lumbosacral region (04/04/19) Spinal stenosis, lumbar region without neurogenic claudication (04/04/19) Arthrodesis status (04/04/19) Surgery Performed Operation Date: 04/04/19 07:45 Actual Procedures p L4-S1 HWR,L3-4 TLIF, L3-S1 PSF w/ instrumentation - Ian Andrade MD Occupational Therapy Treatment Note M2 OT-IP Current Condition Start: 04/05/19 12:25 Freq: Status: Active Protocol: Document 04/05/19 12:26 [facility] (Rec: 04/05/19 12:42 [facility] [id number]) Occupational Therapy Current Condition Current Condition Evaluation Date 04/05/19 Treatment Diagnosis S/P L4-S1, hWR L3-4 TLIF, L3- S1 PSF decreased self care & mobility Diagnosis Onset Date 04/04/19 Post Operative Precautions Lumbar Precautions Log Roll,No Twisting,Limit Bending,Lifting Restriction of 10 lbs,Gait Belt above Incisional Area Weight Bearing Status Weight Bearing Status Weight Bear as Tolerated M3 OT- IP Subjective and Pain Start: 04/05/19 12:25 Freq: Status: Active Protocol: Document 04/05/19 12:50 [facility] (Rec: 04/05/19 15:04 [facility] [id number]) OT- Subjective Occupational Therapy Visit Type Type Treatment Note Visit Start Time 12:50 Visit Stop Time 13:13 Total Visit Minutes 38 Notes Pt also seen at [id number] to help get back into bed. Occupational Therapy Visit Comments Patient Comments Pt willing to try to get up to the recliner with OT/PT. OT and PT joint session due to pt needing extensive skilled assist for transfer safety and assist. OT Pain Assessment Pain When Pain Assessed At Rest Pain Present Pain Present Pain Reported Location lower back Intensity 7 Scale Used Numeric (1 - 10) M4 OT- IP ADL's Start: 04/05/19 12:25 Freq: Status: Active Protocol: Document 04/05/19 12:26 [facility] (Rec: 04/05/19 12:42 [facility] [id number]) OT ADL-Grooming General Evaluation Grooming Ability Standby Assistance Comments OT Grooming Comments While sitting in bed able to wash her face and hands after set-up. OT ADL-Dressing General Eval Lower Body Dressing Ability Maximum Assistance Areas Needing Assistance Socks OT ADL-Toileting Comments OT Toileting Comments Pt has barger in. OT ADL-Bathing Comments OT Bathing Comments Not appropriate at this time. M5 OT- IP IADL's Start: 04/05/19 12:25 Freq: Status: Active Protocol: Document 04/05/19 12:26 [facility] (Rec: 04/05/19 12:42 [facility] [id number]) OT-Instrumental Activities of Daily Living Home Safety Awareness Home Safety Comments Pt a bit groggy due to pain medications and has good understanding if going home would be best to assist for medications and finance needs, along with ADl and IADl needs. M6 OT- IP Functional Cognition Start: 04/05/19 12:25 Freq: Status: Active Protocol: Document 04/05/19 12:50 [facility] (Rec: 04/05/19 15:04 [facility] [id number]) Cognitive Factors Limiting Selfcare Function Cognitive Ability Level of Alertness Alert Patient Orientation Name,Place,Situation Attention Span Ability Capable of Focused Attention, Capable of Sustained Attention Ability to Follow Commands Able to Follow One Step Commands Cognitive Comments Cognitive Assessment Comments Pt more alert and less groggy and O2 on RA and able to maintain above 92%. Pt still needing step by step commands for bed mobility and transfer needs. M7 OT- IP Mobility and Balance Start: 04/05/19 12:25 Freq: Status: Active Protocol: Document 04/05/19 12:50 [facility] (Rec: 04/05/19 15:04 [facility] [id number]) OT- Bed Mobility Assessment Rolling Type of Rolling Roll to Left Level of Assistance Maximum Assistance,1 Person Assistance Supine to Sit Supine to Sit Assist Maximum Assistance,2 Person Assistance Sit to Supine Sit to Supine Assist Maximum Assistance,2 Person Assistance OT-Transfer Assessment Sit to and From Stand Sit to and from Stand Maximum Assistance,2 Person Assistance Transfers Transfer Ability Maximum Assistance,2 Person Assistance Technique Transfer Destination Bed,Chair Transfer Technique Stand Step Pivot Devices Transfer Assistive Devices Gait Belt,Front Wheeled Walker Comments Mobility Comments Pt able to come to stand during PM session MAX A X2, needing cues to increase control of her legs when standing and needing assist L> R from keeping her knees from buckling. Assist to move FWW, hand placement and 3rd person to assist with IV pole and to steady FWW when pt trying to stand. OT- Balance Assessment Sitting Balance and Reactions Static Sitting Balance Ability Fair Dynamic Sitting Balance Ability Poor Standing Balance and Reactions Static Standing Balance Ability Poor Dynamic Standing Balance Ability Poor M9 OT- IP Assessment and Plan Start: 04/05/19 12:25 Freq: Status: Active Protocol: Document 04/05/19 12:50 [facility] (Rec: 04/05/19 15:04 [facility] [id number]) OT Summary Assessment and Plan Potential Rehabilitation Potential Fair Analytic Complexity at Evaluation Low Summary OT Impairments Pain,Strength,Balance, Functional Cognition, Functional Mobility,Grooming, Dressing,Toileting,Bathing, Toilet Transfers,Shower Transfers Progress Towards Goals Slow Progress due to Pain,Slow Progress due to Activity Tolerance,Slow Progress due to Cognition Assessment Summary Pt able to tolerate transfer in PM. Continues to need extensive assist and will benefit from skilled rehab, as now pt needing too much assist for pt's to handle. Goals Grooming Goal Standby Assistance Dressing Goal Minimal Assistance Toileting Goal Minimal Assistance Bathing Goal Moderate Assistance Toilet Transfer Goal Minimal Assistance Shower Transfer Goal Moderate Assistance Patient/Caregiver Education Goal Demonstrate Post-Op Precautions,Caregiver Independent Assisting Patient Days to Meet Goals 10 Frequency of Treatment Frequency Of Treatment Twice a Day Treatment Plan OT Treatment Plan ADL Training,Functional Cognition Training,Functional Mobility,Patient/Family Education,Discharge Planning Other Treatment Recommendations and Next Transfer to toilet MODA X 2. Treatment Focus Discharge Recommendations OT Discharge Recommendations SNF Rehab Home Equipment Needs tub bench
[2019-04-05] MEDS: TRAMADOL 50 MG TABLET PO ×2 (14:05→19:32)
--- NOTE | 2019-04-05 14:42 | DIET.PN ---
Dietary Progress Note RD alerted by [employer] that pt ordered non-fat milk and cream cheese with breakfast tomorrow though lactose is listed as allergy c reaction of my kidneys shut down and urine turns black. Pt states this only happens when dairy and fish are eaten together, not separately. RD confirmed c RN that pt is in sound mind to make decisions so we are allowing dairy at breakfast per pt request. Dietary will cancel order if care team feels strongly about dairy avoidance.
--- NOTE | 2019-04-05 15:57 | PC.NURSE ---
Evening note: Pat sleeping, very pale. RA oxygen sustaining 90% while asleep. She woke to loud voice and touch of hand, very drowsy, answers few questions appropriately, oriented to situation. Other VS stable. 1L O2 via NC placed in nares, sats immediately increased to 97% while she was awake & talking. I instructed IS, she fell asleep while I was talking to her. Will reassess at mealtime. Fall precautions in place & bed alarm active.
[2019-04-05] MEDS: ESOMEPRAZOLE 40 EACH PO (17:06)
[2019-04-05] MEDS: SENNOSIDES 8.6 MG TABLET 17.2 MG PO (21:43)
[2019-04-06] VITALS (9 sets, daily range): BP systolic 123–150; BP diastolic 50–84; PULSE 70–88; RESP 16–18; TEMP 36.3–38.1; O2SAT 95–100
[2019-04-06] MEDS: ACETAMINOPHEN 325 MG TABLET 650 MG PO ×4 (00:25→18:08)
--- NOTE | 2019-04-06 01:59 | PC.NURSE ---
Addendum entered by Yudith Desir R.N. 04/06/19 04:54: States pain is 6/10 and requesting pain medication; medicated with Tramadol. Original Note: 0040 Patient is alert and oriented. Breath sounds CTA; currently on oxygen at 0.5L/min with sat of 97%. HRR. Denies nausea. BT present and is passing flatus. Indwelling catheter is patent; urine is clear yellow. Dressing to back is CDI. Asleep when initially entered room with FLACC of 0 but once awake states back pain is 6/10; medicated with scheduled Tylenol, repositioned and ice applied to back. Is able to turn well with assistance to place pillow. CMS intact except for chronic bilateral foot neuropathy. Wearing bilateral foot SCD's. Fall risk score is high and bed alarm is activated.
[2019-04-06] MEDS: TRAMADOL 50 MG TABLET PO ×3 (04:51→18:08)
[2019-04-06] MEDS: SODIUM CHLORIDE 0.9% 1,000 ML 100 ML IV (05:39)
--- NOTE | 2019-04-06 08:13 | PM.PN.1 ---
Subjective Subjective Date Patient Seen: 04/06/19 Time Patient Seen: 08:13 Interval history: Patient is POD#2 s/p TLIF with Dr. Andrade. She reports some improvement in her pain and radicular symptoms with change in regimen to Tylenol/Tramadol and single administration of Decadron yesterday. Continues to be a 2 person assist with PT. Denies chest pain, shortness of breath. Exam Vital Signs (past 8 hours): - 04/06/19 00:40 04/06/19 04:30 Temperature 97.3 F L 98.0 F Pulse Rate 70 73 Respiratory Rate 18 18 Blood Pressure 124/50 L 126/65 Pulse Oximetry 97 100 Oxygen Delivery Method Nasal Cannula Oxygen Flow Rate 0.5 Narrative Exam Narrative: 73 year old female resting comfortably in bed, alert and oriented in no acute distress. Dressing is CDI. Patient able to flefx/extend the foot and ankle. Calves soft, compressible. Sensation intact to light touch in distal extremity. Palpable pedal pulse. Objective Labs Result Diagrams: 04/05/19 06:41 Assessment & Plan Assessment & Plan narrative: Patient progressing slowly post operatively. Improved pain control compared to yesterday. Mild bump in blood glucose with administration of steroids yesterday. Will continue to monitor, she is to remain on sliding scale. She should continue to mobilize with PT, recommend to patient her participate in caregiver training. She does not want to discharge to SNF, will continue to monitor as she is currently a 2 person assist per PT. Will need to pass stair training if discharging to home. Possible discharge tomorrow, SNF vs home with HH.
[2019-04-06] MEDS: INSULIN ASPART 100 UNIT/ML INSULN PEN SUBCUT ×2 (08:32→11:48)
[2019-04-06] MEDS: CHOLECALCIFEROL (VITAMIN D3) 1,000 UNIT TABLET 2000 UNIT PO (08:33)
[2019-04-06] MEDS: hydroCHLOROthiazide 12.5 MG CAPSULE PO (08:33)
[2019-04-06] MEDS: DOCUSATE 100 MG CAPSULE PO ×2 (08:33→21:11)
[2019-04-06] MEDS: MAGNESIUM CHLORIDE 64 MG TABLET PO ×2 (08:33→21:14)
[2019-04-06] MEDS: CARVEDILOL 12.5 MG TABLET PO ×2 (08:34→21:11)
[2019-04-06] MEDS: ROSUVASTATIN 10 MG TABLET 20 MG PO (08:34)
[2019-04-06] MEDS: MULTIVITAMIN 1 TABLET 1 TAB PO (08:34)
[2019-04-06] MEDS: LOSARTAN 50 MG TABLET 100 MG PO (08:35)
[2019-04-06] MEDS: ALLOPURINOL 300 MG TABLET 150 MG PO (08:35)
--- NOTE | 2019-04-06 10:55 | PT.IPTN ---
Current Diagnoses Other spondylosis with radiculopathy, lumbosacral region (04/04/19) Spinal stenosis, lumbar region without neurogenic claudication (04/04/19) Arthrodesis status (04/04/19) Surgery Performed Operation Date: 04/04/19 07:45 Actual Procedures p L4-S1 HWR,L3-4 TLIF, L3-S1 PSF w/ instrumentation - Ian Andrade MD Physical Therapy Treatment Note M2 PT-IP Current Condition Start: 04/05/19 10:50 Freq: NEEDED Status: Active Protocol: Document 04/05/19 09:58 AB (Rec: 04/05/19 11:10 AB [id number]) Physical Therapy Current Condition Current Condition Evaluation Date 04/05/19 Treatment Diagnosis L3-S1 fusion/lami; difficulty in walking Onset Date 04/04/19 Precautions Lumbar Precautions Log Roll,No Twisting,Limit Bending,Lifting Restriction of 10 lbs,Gait Belt above Incisional Area M3 PT-IP Subjective Start: 04/05/19 10:50 Freq: NEEDED Status: Active Protocol: Document 04/06/19 10:50 [facility] (Rec: 04/06/19 11:42 [facility] [id number]) Subjective Physical Therapy Visit Type Type Treatment Note Visit Start Time 10:30 Visit Stop Time 10:53 Total Visit Minutes 23 Number of [employer] MANAGER Visits 1 Physical Therapy Visit Comments Patient Comments Pt willing to work with therapy. Therapy Pain Assessment Pain When Pain Assessed At Rest Pain Present Pain Present Pain Reported Location lower back Scale Used pain scale not stated M4 PT-IP Mobility and Gait Start: 04/05/19 10:50 Freq: NEEDED Status: Active Protocol: Document 04/06/19 10:50 [facility] (Rec: 04/06/19 11:42 [facility] [id number]) PT-Bed Mobility Assessment Rolling Type of Rolling Roll to Right Level of Assist Contact Guard Assistance Supine to Sit Supine to Sit Minimal Assistance,1 Person Assistance,Bedrails Scooting Scooting to Edge of Bed Contact Guard Assistance PT-Transfer Assessment Sit to and From Stand Sit to and from Stand Contact Guard Assistance,1 Person Assistance,Use of Upper Extremities Equipment Transfer Assistive Device Gait Belt,Front Wheeled Walker Transfers Transfer Destination Chair Transfer Ability Level of Assist Minimal Assistance,1 Person Assistance,Use of Upper Extremities Gait Assessment Gait Gait Assistance Required: Contact Guard Assist,1 Person Assist Distance (Feet) 50 Able to Maintain Weight Bearing Status Yes During Gait Assistive Devices Assistive Device Gait Belt,Front Wheeled Walker Orthotic/Prosthetic Devices or Brace: No Gait Deviations General Gait Pattern Decreased Stride Length, Decreased Feet Clearance Factors Limiting Gait Function Factors Limiting Gait Function Decreased Activity Tolerance, Decreased Sensation,Decreased Strength,Pain,Poor Balance M5 PT-IP Objective Assessments Start: 04/05/19 10:50 Freq: NEEDED Status: Active Protocol: Document 04/05/19 09:58 AB (Rec: 04/05/19 11:10 AB [id number]) Orientation Orientation/Cognition Level of Alertness Lethargic Orientation Name,Date,Place,Situation Safety Awareness Decreased Safety Awareness Memory Description Short Term Impaired Gross Range of Motion Lower Extremity ROM Assessment Within Functional Limits Strength Lower Extremity Strength Assessment Bilaterally Impaired Comments Strength Comments R hip: 3+/5 L hip 4-/5 R knee: 3+/5 L knee 3+/5; RLE slightly stronger than LLE Sensation Assessment Sensation Gross Sensation Right LE Impaired,Left LE Impaired Light Touch Impaired Proprioception (Position) Impaired Sensation Description Numbness,Tingling Comments Sensation Comments able to determine light touch but stated that sensation is less Muscle Tone Muscle Tone WNL Yes M6 PT-IP Treatment Start: 04/05/19 10:50 Freq: NEEDED Status: Active Protocol: Document 04/06/19 10:50 [facility] (Rec: 04/06/19 11:42 [facility] [id number]) Physical Therapy Treatment Education Education Provided Precautions,Safety M7 PT-IP Assessment and Plan Start: 04/05/19 10:50 Freq: NEEDED Status: Active Protocol: Document 04/06/19 10:50 [facility] (Rec: 04/06/19 11:42 [facility] [id number]) PT Summary Assessment and Plan Summary Assessment Summary Pt improving with mobility. She needed min A with bed mobility. She was able to ambulate with CGA. Pt had LE weakness, but no buckling with mobility. Frequency of Treatment Frequency Of Treatment Twice a Day Treatment Plan Physical Therapy Treatment Plan Bed Mobility Training,Transfer Training,Gait Training, Therapeutic Exercise,Balance Retraining,Post Op Education, Discharge Planning,Hot or Cold Pack,Neuromuscular Re-ed, Coordination Retraining,Manual Therapy Other Recommendations and Next Treatment caregiver training and stair Focus mobility Recommendations To Nursing Amount of Assist Needed 1 Person Assist Discharge Recommendations PT Discharge Recommendations Home with Assistance,SNF Rehab Other Discharge Recommendations home Vs. SNF
--- NOTE | 2019-04-06 11:16 | OT.IP.TRT ---
Current Diagnoses Other spondylosis with radiculopathy, lumbosacral region (04/04/19) Spinal stenosis, lumbar region without neurogenic claudication (04/04/19) Arthrodesis status (04/04/19) Surgery Performed Operation Date: 04/04/19 07:45 Actual Procedures p L4-S1 HWR,L3-4 TLIF, L3-S1 PSF w/ instrumentation - Ian Andrade MD Occupational Therapy Treatment Note M2 OT-IP Current Condition Start: 04/05/19 12:25 Freq: Status: Active Protocol: Document 04/05/19 12:26 [facility] (Rec: 04/05/19 12:42 [facility] [id number]) Occupational Therapy Current Condition Current Condition Evaluation Date 04/05/19 Treatment Diagnosis S/P L4-S1, hWR L3-4 TLIF, L3- S1 PSF decreased self care & mobility Diagnosis Onset Date 04/04/19 Post Operative Precautions Lumbar Precautions Log Roll,No Twisting,Limit Bending,Lifting Restriction of 10 lbs,Gait Belt above Incisional Area Weight Bearing Status Weight Bearing Status Weight Bear as Tolerated M3 OT- IP Subjective and Pain Start: 04/05/19 12:25 Freq: Status: Active Protocol: Document 04/06/19 11:42 [facility] (Rec: 04/06/19 11:50 [facility] [id number]) OT- Subjective Occupational Therapy Visit Type Type Treatment Note Visit Start Time 11:16 Visit Stop Time 11:31 Total Visit Minutes 15 Occupational Therapy Visit Comments Patient Comments Pt just too tired and not wanting to get up at this time , but willing to go over LB dressing equipment needs. Patient/Caregiver Goals To go home when stable, pending stair training , pt optimistic that she will be able to go home with 's assist. OT Pain Assessment Pain When Pain Assessed At Rest Pain Present Pain Present Pain Reported Location lower back Intensity 7 Scale Used Numeric (1 - 10) M4 OT- IP ADL's Start: 04/05/19 12:25 Freq: Status: Active Protocol: Document 04/06/19 11:42 [facility] (Rec: 04/06/19 11:50 [facility] [id number]) OT ADL-Dressing General Eval Areas Needing Assistance Socks Assistive Devices Dressing Assistive Devices Market Specialist Comments OT Dressing Comments Pt educated on LB dressing equipment as states from prior back surgery uncertain of use of sock aid. After education pt able to demonstrate good safety for LB dressing needs. Market Specialist, sock aid and long handled sponge issued. OT ADL-Toileting Comments OT Toileting Comments Spoke would be best to stand for pericare needs to prevent from twisting and bending too much. Pt states also has wipes she uses at home. OT ADL-Bathing Comments OT Bathing Comments Pt wanting to do showering tomorrow. M5 OT- IP IADL's Start: 04/05/19 12:25 Freq: Status: Active Protocol: Document 04/05/19 12:26 [facility] (Rec: 04/05/19 12:42 [facility] [id number]) OT-Instrumental Activities of Daily Living Home Safety Awareness Home Safety Comments Pt a bit groggy due to pain medications and has good understanding if going home would be best to assist for medications and finance needs, along with ADl and IADl needs. M6 OT- IP Functional Cognition Start: 04/05/19 12:25 Freq: Status: Active Protocol: Document 04/06/19 11:42 [facility] (Rec: 04/06/19 11:50 [facility] [id number]) Cognitive Factors Limiting Selfcare Function Cognitive Ability Level of Alertness Alert Patient Orientation Name,Place,Situation Attention Span Ability Capable of Focused Attention, Capable of Sustained Attention Ability to Follow Commands Able to Follow One Step Commands Cognitive Comments Cognitive Assessment Comments Pt able to recall all back precautions today. Pt states may have bedrail at home that they used with grandchildren and will have check to see if it would work for her. Otherwise pt states has a bed stand next to the bed. Another option able to hold FWW next to the bed for pt to pull to for bed mobility needs. M9 OT- IP Assessment and Plan Start: 04/05/19 12:25 Freq: Status: Active Protocol: Document 04/06/19 11:42 [facility] (Rec: 04/06/19 11:50 [facility] [id number]) OT Summary Assessment and Plan Potential Rehabilitation Potential Good Analytic Complexity at Evaluation Low Summary OT Impairments Pain,Strength,Balance, Functional Cognition, Functional Mobility,Grooming, Dressing,Toileting,Bathing, Toilet Transfers,Shower Transfers Progress Towards Goals Progressing Toward Goals Assessment Summary Per pt mobilizing much better today and feels more confident to go home tomorrow. Pt still needing to complete stair training and caregiver training with for showering and dressing needs. Therefore pending safety and completion of caregiver training either home with versus skilled rehab. Goals Grooming Goal Standby Assistance Dressing Goal Minimal Assistance Toileting Goal Standby Assistance Bathing Goal Minimal Assistance Toilet Transfer Goal Contact Guard Assistance Shower Transfer Goal Minimal Assistance Patient/Caregiver Education Goal Demonstrate Post-Op Precautions,Caregiver Independent Assisting Patient Days to Meet Goals 3 Frequency of Treatment Frequency Of Treatment Once a Day Treatment Plan OT Treatment Plan ADL Training,Functional Cognition Training,Functional Mobility,Patient/Family Education,Discharge Planning Other Treatment Recommendations and Next shower Treatment Focus Discharge Recommendations OT Discharge Recommendations Home with Assistance,SNF Rehab Home Equipment Needs tub bench
--- NOTE | 2019-04-06 12:45 | OT.IP.TRT ---
Current Diagnoses Other spondylosis with radiculopathy, lumbosacral region (04/04/19) Spinal stenosis, lumbar region without neurogenic claudication (04/04/19) Arthrodesis status (04/04/19) Surgery Performed Operation Date: 04/04/19 07:45 Actual Procedures p L4-S1 HWR,L3-4 TLIF, L3-S1 PSF w/ instrumentation - Ian Andrade MD Occupational Therapy Treatment Note M2 OT-IP Current Condition Start: 04/05/19 12:25 Freq: Status: Active Protocol: Document 04/05/19 12:26 [facility] (Rec: 04/05/19 12:42 [facility] [id number]) Occupational Therapy Current Condition Current Condition Evaluation Date 04/05/19 Treatment Diagnosis S/P L4-S1, hWR L3-4 TLIF, L3- S1 PSF decreased self care & mobility Diagnosis Onset Date 04/04/19 Post Operative Precautions Lumbar Precautions Log Roll,No Twisting,Limit Bending,Lifting Restriction of 10 lbs,Gait Belt above Incisional Area Weight Bearing Status Weight Bearing Status Weight Bear as Tolerated M3 OT- IP Subjective and Pain Start: 04/05/19 12:25 Freq: Status: Active Protocol: Document 04/06/19 11:42 [facility] (Rec: 04/06/19 11:50 [facility] [id number]) OT- Subjective Occupational Therapy Visit Type Type Treatment Note Visit Start Time 11:16 Visit Stop Time 11:31 Total Visit Minutes 15 Occupational Therapy Visit Comments Patient Comments Pt just too tired and not wanting to get up at this time , but williing to go over LB dressing equipment needs. Patient/Caregiver Goals To go home when stable, pending stair training , pt optomistic that she will be able to go home with 's assist. OT Pain Assessment Pain When Pain Assessed At Rest Pain Present Pain Present Pain Reported Location lower back Intensity 7 Scale Used Numeric (1 - 10) M4 OT- IP ADL's Start: 04/05/19 12:25 Freq: Status: Active Protocol: Document 04/06/19 11:42 [facility] (Rec: 04/06/19 11:50 [facility] [id number]) OT ADL-Dressing General Eval Areas Needing Assistance Socks Assistive Devices Dressing Assistive Devices Latex Foam Worker Comments OT Dressing Comments Pt educated on LB dressing equipment as states from prior back surgery uncertain of use of sock aid. After education pt able to demonstrate good safety for LB dressing needs. Latex Foam Worker, sock aid and long handled sponge issued. OT ADL-Toileting Comments OT Toileting Comments Spoke would be best to stand for pericare needs to prevent from twisting and bending too much. Pt states also has wipes she uses at home. OT ADL-Bathing Comments OT Bathing Comments Pt wanting to do showering tomorrow. M5 OT- IP IADL's Start: 04/05/19 12:25 Freq: Status: Active Protocol: Document 04/05/19 12:26 [facility] (Rec: 04/05/19 12:42 [facility] [id number]) OT-Instrumental Activities of Daily Living Home Safety Awareness Home Safety Comments Pt a bit groggy due to pain medications and has good understanding if going home would be best to assist for medcations and finance needs, along with ADl and IADl needs. M6 OT- IP Functional Cognition Start: 04/05/19 12:25 Freq: Status: Active Protocol: Document 04/06/19 11:42 [facility] (Rec: 04/06/19 11:50 [facility] [id number]) Cognitive Factors Limiting Selfcare Function Cognitive Ability Level of Alertness Alert Patient Orientation Name,Place,Situation Attention Span Ability Capable of Focused Attention, Capable of Sustained Attention Ability to Follow Commands Able to Follow One Step Commands Cognitive Comments Cognitive Assessment Comments Pt able to recall all back precautions today. Pt ED to stand with FWW and assist for steadying with fww to back up to the bed. ED to assist to get legs back onto the bed. Grooming Goal Standby Assistance Dressing Goal Minimal Assistance Toileting Goal Standby Assistance Bathing Goal Minimal Assistance Toilet Transfer Goal Contact Guard Assistance Shower Transfer Goal Minimal Assistance Patient/Caregiver Education Goal Demonstrate Post-Op Precautions,Caregiver Independent Assisting Patient Days to Meet Goals 3 Frequency of Treatment Frequency Of Treatment Once a Day Treatment Plan OT Treatment Plan ADL Training,Functional Cognition Training,Functional Mobility,Patient/Family Education,Discharge Planning Other Treatment Recommendations and Next shower Treatment Focus Discharge Recommendations OT Discharge Recommendations Home with Assistance,SNF Rehab Home Equipment Needs tub bench
--- NOTE | 2019-04-06 13:13 | CM.DPC ---
DCP continued: CM meet with patient and at the bedside to disscuss possible SNF placement options. During AM rounds it was disscussed that patient does need SNF to help rehab and gain strength prior to going home. Patient stated that if she needs SNF placement she would like to go to [facility] since it is close for family to come visit. CM called ajay at [facility] to review for possible acceptance. Ajay called back and can accept patient at discharge. CM department to Follow. ESCOBAR done . Lucía Wetzel RN
--- NOTE | 2019-04-06 14:15 | PT.IPTN ---
Current Diagnoses Other spondylosis with radiculopathy, lumbosacral region (04/04/19) Spinal stenosis, lumbar region without neurogenic claudication (04/04/19) Arthrodesis status (04/04/19) Surgery Performed Operation Date: 04/04/19 07:45 Actual Procedures p L4-S1 HWR,L3-4 TLIF, L3-S1 PSF w/ instrumentation - Ian Andrade MD Physical Therapy Treatment Note M2 PT-IP Current Condition Start: 04/05/19 10:50 Freq: NEEDED Status: Active Protocol: Document 04/05/19 09:58 [facility] (Rec: 04/05/19 11:10 [facility] [id number]) Physical Therapy Current Condition Current Condition Evaluation Date 04/05/19 Treatment Diagnosis L3-S1 fusion/lami; difficulty in walking Onset Date 04/04/19 Precautions Lumbar Precautions Log Roll,No Twisting,Limit Bending,Lifting Restriction of 10 lbs,Gait Belt above Incisional Area M3 PT-IP Subjective Start: 04/05/19 10:50 Freq: NEEDED Status: Active Protocol: Document 04/06/19 14:15 [facility] (Rec: 04/06/19 14:46 [facility] [id number]) Subjective Physical Therapy Visit Type Type Treatment Note Visit Start Time 14:04 Visit Stop Time 14:17 Total Visit Minutes 13 Number of [employer] Visits 2 Physical Therapy Visit Comments Patient Comments Pt willing to work with therapy. Therapy Pain Assessment Pain When Pain Assessed At Rest Pain Present Pain Present Pain Reported Location lower back Scale Used pain scale not stated M4 PT-IP Mobility and Gait Start: 04/05/19 10:50 Freq: NEEDED Status: Active Protocol: Document 04/06/19 14:15 [facility] (Rec: 04/06/19 14:46 [facility] [id number]) PT-Bed Mobility Assessment Rolling Type of Rolling Roll to Right Level of Assist Contact Guard Assistance Supine to Sit Supine to Sit Minimal Assistance,1 Person Assistance,Bedrails Sit to Supine Sit to Supine Minimal Assistance,1 Person Assistance Scooting Scooting to Edge of Bed Contact Guard Assistance PT-Transfer Assessment Sit to and From Stand Sit to and from Stand Contact Guard Assistance,1 Person Assistance,Use of Upper Extremities Equipment Transfer Assistive Device Gait Belt,Front Wheeled Walker Transfers Transfer Destination Chair Transfer Ability Level of Assist Contact Guard Assistance,1 Person Assistance,Use of Upper Extremities Comments Mobility Comments Instruct on assist with bed mobility and use of FWW for rail. Gait Assessment Gait Gait Assistance Required: Contact Guard Assist,1 Person Assist Distance (Feet) 110 Able to Maintain Weight Bearing Status Yes During Gait Assistive Devices Assistive Device Gait Belt,Front Wheeled Walker Orthotic/Prosthetic Devices or Brace: No Gait Deviations General Gait Pattern Decreased Stride Length, Decreased Feet Clearance Factors Limiting Gait Function Factors Limiting Gait Function Decreased Activity Tolerance, Decreased Sensation,Decreased Strength,Pain,Poor Balance M5 PT-IP Objective Assessments Start: 04/05/19 10:50 Freq: NEEDED Status: Active Protocol: Document 04/05/19 09:58 [facility] (Rec: 04/05/19 11:10 [facility] [id number]) Orientation Orientation/Cognition Level of Alertness Lethargic Orientation Name,Date,Place,Situation Safety Awareness Decreased Safety Awareness Memory Description Short Term Impaired Gross Range of Motion Lower Extremity ROM Assessment Within Functional Limits Strength Lower Extremity Strength Assessment Bilaterally Impaired Comments Strength Comments R hip: 3+/5 L hip 4-/5 R knee: 3+/5 L knee 3+/5; RLE slightly stronger than LLE Sensation Assessment Sensation Gross Sensation Right LE Impaired,Left LE Impaired Light Touch Impaired Proprioception (Position) Impaired Sensation Description Numbness,Tingling Comments Sensation Comments able to determine light touch but stated that sensation is less Muscle Tone Muscle Tone WNL Yes M6 PT-IP Treatment Start: 04/05/19 10:50 Freq: NEEDED Status: Active Protocol: Document 04/06/19 14:15 [facility] (Rec: 04/06/19 14:46 [facility] [id number]) Physical Therapy Treatment Education Education Provided Precautions,Safety M7 PT-IP Assessment and Plan Start: 04/05/19 10:50 Freq: NEEDED Status: Active Protocol: Document 04/06/19 14:15 [facility] (Rec: 04/06/19 14:46 [facility] [id number]) PT Summary Assessment and Plan Summary Assessment Summary Pt improving with mobility. She was able to progress gait distance. Pt's was able to demonstrate safe assist with bed mobility. Frequency of Treatment Frequency Of Treatment Twice a Day Treatment Plan Physical Therapy Treatment Plan Bed Mobility Training,Transfer Training,Gait Training, Therapeutic Exercise,Balance Retraining,Post Op Education, Discharge Planning,Hot or Cold Pack,Neuromuscular Re-ed, Coordination Retraining,Manual Therapy Other Recommendations and Next Treatment stair mobility Focus Recommendations To Nursing Amount of Assist Needed 1 Person Assist Discharge Recommendations PT Discharge Recommendations Home with Assistance,SNF Rehab Other Discharge Recommendations home Vs. SNF
[2019-04-06] MEDS: ESOMEPRAZOLE 40 EACH PO (16:43)
[2019-04-06] MEDS: SENNOSIDES 8.6 MG TABLET 17.2 MG PO (21:11)
[2019-04-06] MEDS: SODIUM CHLORIDE 0.9% FLUSH 10 ML IV (21:12)
[2019-04-06] MEDS: OXYCODONE IR 10 MG TABLET PO (21:14)
[2019-04-07] VITALS: BP 139/54; PULSE 75; RESP 19; TEMP 37.3; O2SAT 95
[2019-04-07] MEDS: ACETAMINOPHEN 325 MG TABLET 650 MG PO ×3 (00:03→12:27)
--- NOTE | 2019-04-07 01:22 | PC.NURSE ---
Addendum entered by Yudith Desir R.N. 04/07/19 06:08: Awakened for scheduled Tylenol and patient states she is having a little pain but rates severity as 5/10. Declined offer to reposition at this time but provided with ice pack. Addendum entered by Yudith Desir R.N. 04/07/19 03:36: Up to bathroom and then positioned onto right side. States pain is not too bad and rates severity as 6/10; medicated with Tramadol Original Note: 0020 Patient is alert and oriented. Breath sounds CTA with RA sat of 95%. HRR. Denies nausea. BT present and is passing flatus but has not had BM since 04/03; has been receiving both Docusate and Senna. Will offer MOM or Dulcolax in morning. Voiding without dysuria, frequency or urgency following catheter removal yesterday. Tape around back dressing rolling off so changed to coversite dressing; incisions well approximated with only old drainage on dressing and steri strip but does have some bruising below incisions. States pain is currently 5/10; medicated with scheduled Tylenol, repositioned and ice applied. Able to turn self in bed with assistance to place pillows. Up to bathroom with walker and standby assistance. 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 Pedal pulses + with good cap refill. Wearing bilateral foot SCD's. Fall risk score is high and bed alarm is activated
[2019-04-07] MEDS: TRAMADOL 50 MG TABLET PO ×2 (03:33→09:18)
[2019-04-07 03:35] VITALS: BP 142/75; PULSE 68; RESP 18; TEMP 36.9; O2SAT 100
[2019-04-07 08:00] VITALS: BP 138/67; PULSE 71; RESP 16; TEMP 37; O2SAT 97
[2019-04-07] MEDS: MULTIVITAMIN 1 TABLET 1 TAB PO (09:03)
[2019-04-07] MEDS: DOCUSATE 100 MG CAPSULE PO (09:03)
[2019-04-07 09:04] VITALS: BP 138/67; PULSE 74
[2019-04-07] MEDS: CARVEDILOL 12.5 MG TABLET PO (09:04)
[2019-04-07] MEDS: ROSUVASTATIN 10 MG TABLET 20 MG PO (09:04)
[2019-04-07 09:06] VITALS: BP 138/67; PULSE 74
[2019-04-07] MEDS: LOSARTAN 50 MG TABLET 100 MG PO (09:06)
[2019-04-07] MEDS: CHOLECALCIFEROL (VITAMIN D3) 1,000 UNIT TABLET 2000 UNIT PO (09:07)
[2019-04-07] MEDS: ALLOPURINOL 300 MG TABLET 150 MG PO (09:09)
[2019-04-07] MEDS: MAGNESIUM CHLORIDE 64 MG TABLET PO (09:10)
[2019-04-07] MEDS: hydroCHLOROthiazide 12.5 MG CAPSULE PO (09:10)
--- NOTE | 2019-04-07 10:30 | PT.IPTN ---
Current Diagnoses Other spondylosis with radiculopathy, lumbosacral region (04/04/19) Spinal stenosis, lumbar region without neurogenic claudication (04/04/19) Arthrodesis status (04/04/19) Surgery Performed Operation Date: 04/04/19 07:45 Actual Procedures p L4-S1 HWR,L3-4 TLIF, L3-S1 PSF w/ instrumentation - Ian Andrade MD Physical Therapy Treatment Note M2 PT-IP Current Condition Start: 04/05/19 10:50 Freq: NEEDED Status: Active Protocol: Document 04/05/19 09:58 [facility] (Rec: 04/05/19 11:10 AB [id number]) Physical Therapy Current Condition Current Condition Evaluation Date 04/05/19 Treatment Diagnosis L3-S1 fusion/lami; difficulty in walking Onset Date 04/04/19 Precautions Lumbar Precautions Log Roll,No Twisting,Limit Bending,Lifting Restriction of 10 lbs,Gait Belt above Incisional Area M3 PT-IP Subjective Start: 04/05/19 10:50 Freq: NEEDED Status: Active Protocol: Document 04/07/19 10:30 SP (Rec: 04/07/19 10:55 SP [email or web address]) Subjective Physical Therapy Visit Type Type Treatment Note Visit Start Time 10:07 Visit Stop Time 10:30 Total Visit Minutes 23 Number of MASTER ELECTRICIAN Visits 3 Physical Therapy Visit Comments Patient Comments Pt willing to work with PT, caregiver training with . Patient Goals Go for a walk and stair management with . Therapy Pain Assessment Pain When Pain Assessed At Rest Pain Present Pain Present Pain Reported Location bilateral hips Intensity 6 Scale Used Numeric (1 - 10) Pain Management Techniques Re-positioning M4 PT-IP Mobility and Gait Start: 04/05/19 10:50 Freq: NEEDED Status: Active Protocol: Document 04/07/19 10:30 SP (Rec: 04/07/19 10:55 SP [email or web address]) PT-Bed Mobility Assessment Rolling Type of Rolling Roll to Right Level of Assist Standby Assistance Sit to Supine Sit to Supine Minimal Assistance,1 Person Assistance Scooting Scooting to Edge of Bed Contact Guard Assistance PT-Transfer Assessment Sit to and From Stand Sit to and from Stand Standby Assistance,Use of Upper Extremities Equipment Transfer Assistive Device Gait Belt,Front Wheeled Walker Transfers Transfer Destination Bed,Chair,Toilet Transfer Technique Stand Step Pivot Transfer Ability Level of Assist Standby Assistance,Use of Upper Extremities Comments Mobility Comments Caregiver training: provided min support for R then L LE into bed sit>supine with use of FWW for a rail. Gait Assessment Gait Gait Assistance Required: Standby Assistance Distance (Feet) 212 Able to Maintain Weight Bearing Status Yes During Gait Assistive Devices Assistive Device Gait Belt,Front Wheeled Walker Orthotic/Prosthetic Devices or Brace: No Gait Deviations General Gait Pattern Decreased Stride Length, Decreased Feet Clearance Factors Limiting Gait Function Factors Limiting Gait Function Decreased Strength,Pain Stair Climbing Assessment Evaluation Level of Assist On Stairs Contact Guard Assistance, Minimal Assistance,1 Person Assistance Devices Stair Climbing Assistive Devices Tripod Cane/Hurry Cane,Left Railing Technique/Endurance Stair Climbing Direction Ascend and Descend Stair Climbing Technique Step to Step Number of Steps Climbed 4 Stair Climbing Set # Repetitions (reps) 2 Comments Stair Climbing Comments Pt required Min support during initial ascended with LLE, R UE support on HR and hurry can in LUE and L knee buckled to first step requiring Min A x1 for recovery, instructed to ascend with stronger RLE, patient stated has been patterning LHR that is little further forward and cane in RUE with step to gait leading RLE- continued patterning as patient suggested has always done with good demonstration and only requiring CGA and no deviations during descending and 2nd set. PT-Balance Assessment Sitting Balance and Reactions Static Sitting Balance Ability Good Dynamic Sitting Balance Ability Good Standing Balance and Reactions Static Standing Balance Ability Good Dynamic Standing Balance Ability Good M5 PT-IP Objective Assessments Start: 04/05/19 10:50 Freq: NEEDED Status: Active Protocol: Document 04/05/19 09:58 AB (Rec: 04/05/19 11:10 AB [id number]) Orientation Orientation/Cognition Level of Alertness Lethargic Orientation Name,Date,Place,Situation Safety Awareness Decreased Safety Awareness Memory Description Short Term Impaired Gross Range of Motion Lower Extremity ROM Assessment Within Functional Limits Strength Lower Extremity Strength Assessment Bilaterally Impaired Comments Strength Comments R hip: 3+/5 L hip 4-/5 R knee: 3+/5 L knee 3+/5; RLE slightly stronger than LLE Sensation Assessment Sensation Gross Sensation Right LE Impaired,Left LE Impaired Light Touch Impaired Proprioception (Position) Impaired Sensation Description Numbness,Tingling Comments Sensation Comments able to determine light touch but stated that sensation is less Muscle Tone Muscle Tone WNL Yes M6 PT-IP Treatment Start: 04/05/19 10:50 Freq: NEEDED Status: Active Protocol: Document 04/07/19 10:30 SP (Rec: 04/07/19 10:55 SP [email or web address]) Physical Therapy Treatment Education Education Provided Precautions,Safety M7 PT-IP Assessment and Plan Start: 04/05/19 10:50 Freq: NEEDED Status: Active Protocol: Document 04/07/19 10:30 SP (Rec: 04/07/19 10:55 SP [email or web address]) PT Summary Assessment and Plan Potential Rehabilitation Potential Good Summary Impairments Pain,ROM,Strength,Balance, Sensation,Bed Mobility, Transfers,Gait,Activity Tolerance Progress Towards Goals Slow Progress due to Pain,Slow Progress due to Medical Issues Assessment Summary Pt improving with mobility. She needed min A with bed mobility for LE support into bed. She was able to ambulate with SBA. Pt had LE weakness during stair mgt of LLE buckling while WB onto to ascend Min A to recover, instructed to ascend with RLE with improvement. Completed healthcare risk control consultant training: transfers , BM, gait and stair training with good carryover to prep for safe home DC. Goals Bed Mobility Goal Contact Guard Assistance Transfer Goal Contact Guard Assistance,Front Wheeled Walker Gait Goal Contact Guard Assistance,Front Wheel Walker Gait Distance 50 Other Goals up/down 7 steps R rail ascending + hurrycane CGA Days to Meet Goals 10 Frequency of Treatment Frequency Of Treatment Twice a Day Treatment Plan Physical Therapy Treatment Plan Bed Mobility Training,Transfer Training,Gait Training, Therapeutic Exercise,Balance Retraining,Post Op Education, Discharge Planning,Hot or Cold Pack,Neuromuscular Re-ed, Coordination Retraining,Manual Therapy Other Recommendations and Next Treatment stair mobility Focus Recommendations To Nursing Amount of Assist Needed 1 Person Assist Discharge Recommendations PT Discharge Recommendations Home with Assistance Other Discharge Recommendations home with 24 hr care Outpatient PT/OT
[2019-04-07 11:51] VITALS: BP 161/79; PULSE 71; RESP 16; TEMP 36.8; O2SAT 97
--- NOTE | 2019-04-07 12:13 | P.DS_ITS ---
History of Present Illness History of Present Illness Date Patient Seen: 04/07/19 Time Patient Seen: 12:13 Chief complaint: [id number] Narrative: Patient has been having chronic back pain and worsening lumbar radiculopathy. Patient failed multiple conservative management with worsening pain weakness and numbness in her lower extremity. Patient has been having difficulty performing activity of daily living. After discussing risks benefits of treatment options, patient elected proceed with surgery. POD 3 s/p TLIF with Dr. Andrade. No acute events overnight. Patient is feeling more alert today and complains of pain in the incision site. Patient mobilizing well with PT. Voiding without difficulty. was trained by PT today. Patient denies fever, chills, nausea, vomiting, chest pain, shortness of breath. Discharge Providers Provider Date of admission: 04/04/19 06:05 Discharge Date: 04/07/19 Primary care physician: Radhika Love MD Consults: 04/04/19 13:16 Consult to Occupational Therapy Evaluate & Treat Comment: Physician Instructions: Evaluate and treat Consult to Physical Therapy Evaluate & Treat Comment: Physician Instructions: Evaluate and Treat 04/04/19 15:15 Consult to Respiratory Therapy Evaluate & Treat Comment: Physician Instructions: Evaluate and treat 04/05/19 09:12 Consult to Respiratory Therapy Evaluate & Treat Comment: spo2 83, nc 3L, tachycardic Physician Instructions: Evaluate and treat Discharge provider: Louis Agrawal PA-C Summary Hospital Course Discharge Diagnosis: s/p 1. L3-4 Postero-lateral and posterior interbody fusion 2. L3-4 interbody cage placement. 3. L3-4 decompressive laminectomy with bilateral facetecomies 4. L3-4 L4-5 L5-S1 Posterior segmental instrumentation 5. L4-5 L5-S1 posterior segmental hardware removal 6. L4-5 L5-S1 exploration of fusion with left hemilaminectomy 7. L4-5 posterolateral fusion 8. [employer] of bone marrow from iliac crest 9. Utilization of microsurgical technique and operating microscope spinal stenosis renal disease psoriasis osteoarthritis obesity kidney disease hypertension hyperlipidemia gout GERD fibromyalgia diabetes depression degenerative joint disease arthritis anemia james's esophagus cardiomyopathy colon polyps constipation easy bruisability frequent urinary tract infections heart murmur irregular heart beat kidney cysts neuropathy orbital fracture pain plantar fascitis pneumonia peptic ulcer disease squamous cell carcinoma sciatica sinus bradycardia toxic shock syndrome uterine polyp Hospital Course: Patient admitted to hospital s/p TLIF with Dr. Andrade. On post op day 3 patient was ready for discharge home with assistance. will provide support. Hospital course was notable for sedation on POD 1+2 likely secondary to overmedication. Pain was managed with tramadol, oxycodone and tylenol. Patient was mobilizing with PT prior to discharge. Patient was voiding and eating without difficulty or assistance. Status at Discharge Cognitive/behavioral status at discharge: oriented Functional status at discharge: uses cane/walker Overall status at discharge: patient is progressing back to baseline Time Spent with Patient Time spent: Less than 30 minutes Exam Vital Signs (past 8 hours): - 04/07/19 08:00 04/07/19 09:04 04/07/19 09:06 Temperature 98.6 F Pulse Rate 71 74 74 Respiratory Rate 16 Blood Pressure 138/67 138/67 138/67 Pulse Oximetry 97 04/07/19 11:51 Temperature 98.3 F Pulse Rate 71 Respiratory Rate 16 Blood Pressure 161/79 H Pulse Oximetry 97 Oxygen Delivery Method Room Air Oxygen Flow Rate 0 Narrative Exam Narrative: 73 year old female laying in bed, alert and in mild discomfort, no apparent distress. A&Ox3. Dressing CDI. Sensory function grossly intact to light touch in LE bl. Capillary refill <2seconds LE bl. Dorsalis pedis 2+ bl. Patient able to plantar flex/dorsi flex bl. Objective Labs Result Diagrams: 04/05/19 06:41 Discharge Plan Discharge Plan Patient Disposition: Home Discharge Med Rec/Prescriptions Prescriptions: New oxycodone 5 mg tablet 5 mg PO Q4-6H PRN (Reason: pain (scale score 7-10)) Qty: 60 RF: 0 acetaminophen [Tylenol Extra Strength] 500 mg tablet 500 mg PO Q4H PRN (Reason: pain (scale score 1-3)) Qty: 60 RF: 0 Continued hydrochlorothiazide 12.5 mg tablet 12.5 mg PO DAILY RF: 0 Slow-Mag 71.5 mg tablet,delayed release (DR/EC) 71.5 mg PO BID RF: 0 rosuvastatin [Crestor] 20 mg tablet 20 mg PO DAILY RF: 0 carvedilol [Coreg] 12.5 mg tablet 12.5 mg PO BID RF: 0 losartan [Cozaar] 100 MG tablet 100 mg PO QDAY Qty: 0 RF: 0 CYANOCOBALAMIN (VITAMIN B-12) (Cyanocobalamin Injection) 1,000 mcg IJ Q 5 WEEKS Qty: 0 RF: 0 flaxseed oil 1,000 mg Capsule 2,000 mg PO DAILY Qty: 0 RF: 0 esomeprazole magnesium [Nexium] 40 MG capsule,delayed release(DR/EC) 40 mg PO QPM Qty: 0 RF: 0 multivitamin Capsule 1 cap PO DAILY Qty: 0 RF: 0 FERROUS GLUCONATE 325 mg PO SEE INSTRUCTIONS Qty: 90 RF: 0 allopurinol 100 mg Tablet 150 mg PO DAILY RF: 0 cholecalciferol (vitamin D3) [Vitamin D3] 2,000 unit Capsule 2,000 unit PO DAILY RF: 0 Discontinued celecoxib [Celebrex] 100 mg capsule 100 mg PO DAILY RF: 0 tramadol 50 mg tablet 50 mg PO BID RF: 0 acetaminophen 500 mg Capsule 500 mg PO Q4H PRN (Reason: Pain) Qty: 0 RF: 0 aspirin 81 MG tablet,delayed release (DR/EC) 81 mg PO QDAY Qty: 0 RF: 0 Follow up/Referrals: Ian Andrade MD [Physician] - Radhika Love MD [Primary Care Provider] - Provider Discharge Instructions Diet: Carb-consistent/Diabetic Activity: no excessive twisting, bending, lifting for 6 weeks. Cold/Heat Therapy: continue cold/heat therapy as needed Skin/Wound/Dressing Care Report to your healthcare provider any signs of infection, such as:: chills, fever, increased pain, unusual drainage and unusual redness Dressing: keep dressing dry. if saturated contact the office. Visit Report/Discharge Packet Instructions: Oxycodone, DI for Transforaminal Lumbar Interbody Fusion Stand Alone Forms: Surgery Discharge Discharge Data Primary Care Provider: Radhika Love Discharges patient from system. Discharge Date/Time: 04/07/19 14:30
--- NOTE | 2019-04-07 12:25 | OT.IP.TRT ---
Current Diagnoses Other spondylosis with radiculopathy, lumbosacral region (04/04/19) Spinal stenosis, lumbar region without neurogenic claudication (04/04/19) Arthrodesis status (04/04/19) Surgery Performed Operation Date: 04/04/19 07:45 Actual Procedures p L4-S1 HWR,L3-4 TLIF, L3-S1 PSF w/ instrumentation - Ian Andrade MD Occupational Therapy Treatment Note M2 OT-IP Current Condition Start: 04/05/19 12:25 Freq: Status: Active Protocol: Document 04/05/19 12:26 [facility] (Rec: 04/05/19 12:42 [facility] [id number]) Occupational Therapy Current Condition Current Condition Evaluation Date 04/05/19 Treatment Diagnosis S/P L4-S1, hWR L3-4 TLIF, L3- S1 PSF decreased self care & mobility Diagnosis Onset Date 04/04/19 Post Operative Precautions Lumbar Precautions Log Roll,No Twisting,Limit Bending,Lifting Restriction of 10 lbs,Gait Belt above Incisional Area Weight Bearing Status Weight Bearing Status Weight Bear as Tolerated M3 OT- IP Subjective and Pain Start: 04/05/19 12:25 Freq: Status: Active Protocol: Document 04/07/19 12:27 [facility] (Rec: 04/07/19 12:40 [facility] [id number]) OT- Subjective Occupational Therapy Visit Type Type Treatment Note Visit Start Time 11:41 Visit Stop Time 12:25 Total Visit Minutes 44 Occupational Therapy Visit Comments Patient Comments Pt's present for caregiver training for OT needs. Patient/Caregiver Goals Pt feeling ready to go home today. OT Pain Assessment Pain When Pain Assessed At Rest Pain Present Pain Present Pain Reported Location bilateral hips Intensity 7 Scale Used Numeric (1 - 10) M4 OT- IP ADL's Start: 04/05/19 12:25 Freq: Status: Active Protocol: Document 04/07/19 12:27 [facility] (Rec: 04/07/19 12:40 [facility] [id number]) OT ADL-Dressing General Eval Upper Body Dressing Ability Minimal Assistance Lower Body Dressing Ability Maximum Assistance Areas Needing Assistance Retrieving/Set-up of Clothing, Underpants/Brief,Pants/Shorts, Socks Comments OT Dressing Comments Pt able to assist for all showering and dressing needs with good safety. Pt needing assist to help put bra on to turn it around, best to just have assist so not having to twist the bra around. Pt to tired to use LB dressing equipment and needing assist for brief,pants and socks. OT ADL-Toileting General Evaluation Toileting Ability Independent OT ADL-Bathing Bathing Type Bathing Type Shower General Evaluation Bathing Ability Moderate Assistance Areas Needing Assistance Wash/Dry Back,Wash/Dry Lower Extremities Comments OT Bathing Comments Suggested as pt has a little difficulty to reach underneath for pericare needs able to use a long thin towel in between her legs while is there to assist for balance if needed. Otherwise pt able to use long handled sponge to assist to washing her LE. M6 OT- IP Functional Cognition Start: 04/05/19 12:25 Freq: Status: Active Protocol: Document 04/07/19 12:27 [facility] (Rec: 04/07/19 12:40 [id number]) Cognitive Factors Limiting Selfcare Function Cognitive Comments Cognitive Assessment Comments NO deficits noted. M7 OT- IP Mobility and Balance Start: 04/05/19 12:25 Freq: Status: Active Protocol: Document 04/07/19 12:27 [facility] (Rec: 04/07/19 12:40 [facility] [id number]) OT- Bed Mobility Assessment Rolling Type of Rolling Log Rolling Supine to Sit Supine to Sit Assist Minimal Assistance Sit to Supine Sit to Supine Assist Minimal Assistance OT-Transfer Assessment Sit to and From Stand Sit to and from Stand Standby Assistance,Contact Guard Assistance Transfers Transfer Ability Standby Assistance,Contact Guard Assistance Technique Transfer Destination Bed,Chair,Shower Stall Transfer Technique Stand Step Pivot Devices Transfer Assistive Devices Gait Belt,Front Wheeled Walker Comments Mobility Comments Pt's able to safety do bed mobility with pt and having to use FWW so pt able to pull to get to sidelying, in addition needing assist to help get legs into and out of the bed. OT- Balance Assessment Sitting Balance and Reactions Static Sitting Balance Ability Normal Dynamic Sitting Balance Ability Good Standing Balance and Reactions Static Standing Balance Ability Good M9 OT- IP Assessment and Plan Start: 04/05/19 12:25 Freq: Status: Active Protocol: Document 04/07/19 12:27 [facility] (Rec: 04/07/19 12:40 [facility] [id number]) OT Summary Assessment and Plan Potential Rehabilitation Potential Good Analytic Complexity at Evaluation Low Summary Assessment Summary Pt 's able to complete all caregiver training with good safety for all OT needs at this time. Pt to go home with 's assist. Discharge Recommendations OT Discharge Recommendations Home with Assistance
--- NOTE | 2019-04-07 13:55 | CM.DPC ---
DCP: continued: Case received, EMR reviewed and met now with pt and her in followup to her d/c plan. Pt confirms she did well with PT today, her Don was part of caregiver training and she wishes to d/c to the home setting. PT /OT documentation supports same and Ortho PA Donald Agrawal has d/c'd her to home setting. She reports she has 2 ortho clinic followup appts aleady set up. Had brief discussion re 30 day window Medicare snf benefit if pt goes home and finds that she does poorly. She and Ryan took Marissa's name in case pt does need help with this. She said she had a 10 day stay at [facility] in 2016 for a similar surgery so anticipates she will do fine at home. 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 Marissa/[facility] is updated and will release the referral.
--- NOTE | 2019-04-07 14:25 | PC.NURSE ---
Discharge instructions and home care handouts reviewed with patient and her . Patient has no IV in today. Patient and state understanding and have no further questions or concerns at this time. VSS. Coversite dressing intact without drainage. Patient reports she has follow up appointments scheduled. patient instructed to call surgeons office with questions or concerns, or for any fevers, chills, unusual drainage, reddness or increased pain at this incision. Patient escorted out via wheelchair by [employer] to be discharged to home with with all belongigns.
== END 2019-04-07 14:30 | disposition home or self-care (01) | DRG 454 ==
PROVIDERS: Admitting Provider Orthopaedic Surgery Orthopaedic Surgery of the Spine; PCP Family Medicine; Visit Provider Orthopaedic Surgery Orthopaedic Surgery of the Spine
PROC: 0SG00AJ Fusion of Lumbar Vertebral Joint with Interbody Fusion Device, Posterior Approach, Anterior Column, Open Approach (ICD-10-PCS; principal; 2019-04-04 07:45)
DX: M48.061 Spinal stenosis, lumbar region without neurogenic claudication (principal); I42.9 Cardiomyopathy, unspecified; M96.0 Pseudarthrosis after fusion or arthrodesis; M51.36 Other intervertebral disc degeneration, lumbar region; M53.3 Sacrococcygeal disorders, not elsewhere classified; N18.3 Chronic kidney disease, stage 3 (moderate); I12.9 Hypertensive chronic kidney disease with stage 1 through stage 4 chronic kidney disease, or unspecified chronic kidney disease; M79.7 Fibromyalgia; E11.22 Type 2 diabetes mellitus with diabetic chronic kidney disease; M47.26 Other spondylosis with radiculopathy, lumbar region; M47.27 Other spondylosis with radiculopathy, lumbosacral region; R09.02 Hypoxemia
CPT/HCPCS: 36415; 72100; 76000; 82962; 85014; 85018; 94760; 97116; 97162; 97165; 97530; 97535; C1776; C9290; J0131; J0330; J1100; J1170; J2250; J2405; J2704; J3010; J3410

== ENCOUNTER 2019-07-27 13:00 | Outpatient (RCR) | payer MEDICARE, OTHER, SELFPAY ==
[2019-04-04 13:53] VITALS: BMI 30.7
--- NOTE | 2019-05-10 10:53 | PT.OIE ---
Current Diagnoses Other spondylosis with radiculopathy, lumbar region (05/10/19) Past Medical History (Last Updated 03/16/19 @ 14:59 by Irene Zaragoza RN) Anemia (Acute) Arthritis (Acute) Martinez's esophagus (Acute) Cardiomyopathy (Acute) CKD (chronic kidney disease), stage III (Acute) Colon polyps (Acute) Constipation (Acute) DDD (degenerative disc disease) (Acute) Diabetes (Acute) Easy bruisability (Acute) Eczema (Acute) Elevated cholesterol (Acute) Fibromyalgia (Acute) Frequent urinary tract infections (Acute) GERD (gastroesophageal reflux disease) (Acute) Gout (Acute) Heart murmur (Acute) History of hysteroscopy (Acute 02/15/88) HTN (hypertension) (Acute) Hypokinesis (Acute) Irregular heartbeat (Acute) Kidney cysts (Acute) Kidney disease (Acute) Neuropathy (Acute) Orbital fracture (Acute) Osteoarthritis (Acute) Pain (Acute) Plantar fasciitis (Acute) Pneumonia (Acute) Psoriasis (Acute) PUD (peptic ulcer disease) (Acute) Renal insufficiency (Acute) SCC (squamous cell carcinoma) (Acute) Sciatica (Acute) Sinus bradycardia (Acute) Spinal stenosis (Acute) Toxic shock syndrome (Acute ~1978) Uterine polyp (Acute 06/12/01) Past Surgical History (Last Updated 03/16/19 @ 15:02 by Irene Zaragoza RN) H/O: hysterectomy (Acute) History of arthroplasty of right knee (Acute ~2001) History of colonoscopy (Acute) History of dilation and curettage (Acute) History of surgery (Acute ~1987) Hx of arthroscopy of right knee (Acute 09/07/85) Hx of bladder repair surgery (Acute 03/02/18) Hx of cholecystectomy (Acute 04/15/89) Hx of repair of left rotator cuff (Acute ~2012) Hx of spinal fusion (Acute 12/28/15) Status post total shoulder arthroplasty (Acute ~2012) Visit Care Team Role Provider Type Radhika Love MD Primary Care Provider Physician Specialty: [facility] Address: [address] [place] [address], [address] Email: [email or web address] Ian Andrade MD Attending Provider Physician Specialty: Orthopedic Surgery Address: [address] [place] [address], [id number] Email: [email or web address] [facility] Initial Evaluation PT-OP-A Visit Information Start: 05/10/19 07:25 Freq: Status: Active Protocol: Document 05/10/19 09:42 MB (Rec: 05/10/19 10:05 MB [id number]) Out-Patient Physical Therapy Visit Information Visit Information Visit Type Initial Evaluation Visit Note Medicare, unlimited Visit Start Time 09:42 Visit Stop Time 10:22 Total Visit Minutes 40 Visit Number 1/unlimited PT-OP-B Current Condition Start: 05/10/19 07:25 Freq: Status: Active Protocol: Document 05/10/19 09:42 MB (Rec: 05/10/19 10:05 MB [id number]) Current Condition History of Current Condition Onset Date 2015 first lumbar fusion, 04/04 revision, added L3 Current Complaints LBP and right hip pain History of Current Condition Pt reports arthritis all over. She rates LBP and right posterior hip pain as 5/10 at it's worse. Activity makes pain worse. She is weaning Oxycodone every 8 hours. She is not driving yet. After last back surgery, she started HHPT after surgery. She felt HHPT was helpful. She uses a rolling walker, has a sock aide. She would like to get back to using her cane. 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 She reports right leg weaker than the left. Her has to help her get her right leg into bed. She has a high bed. She wakes up 3x a night to use the BR. She lies side to side and moves on her back. She uses ice pack often. 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 She had bladder and vaginal prolapse. She is having some spotting and is seeing PCP today. She has chronic anemia and her last HGB was 10.0. Pt reports no eye pressure changes. Prior Treatments and Tests PT in the past for balance in 2016. Her balance is much better. She did not like the shuttle balance plate but thinks it was helpful. She had 5 falls after 2016 surgery Pt has had multiple epidural injections and injections for left trochanteric bursitis PT-OP-C Subjective Start: 05/10/19 07:25 Freq: Status: Active Protocol: Document 05/10/19 09:42 MB (Rec: 05/10/19 10:05 MB [id number]) OP-PT Subjective Patient Comments Patient Comments Pt's goals for PT: to become stronger physically, be able to do activities she was doing prior to surgery--light house work, go to theater and plays , go out to eat with friends, decrease pain and be able to play with her grandchildren. PT-OP-J Posture/Palpation/Skin Start: 05/10/19 07:25 Freq: Status: Active Protocol: Document 05/10/19 09:42 MB (Rec: 05/10/19 10:42 MB [id number]) Posture Evaluation Comments Posture Comments Standing: Forward head, rounded shoulder, forward lean , anterior tilt pelvis, curvature lumbar spine with convexity to the right and her surgical scars offset to the right on both sides of her spine. PT-OP-K Range of Motion Start: 05/10/19 07:25 Freq: Status: Active Protocol: Document 05/10/19 09:42 MB (Rec: 05/10/19 10:42 MB [id number]) Hip Goniometric Range of Motion Hip ROM Limitations Comments Passive SLR right 45 deg; left 50 deg Knee Goniometric Range of Motion Knee ROM Limitations Comments Pt lacks full knee extension on the right, 1/2 space between her right knee and the mat. She reports history of right knee surgeries and replacement PT-OP-M Strength Start: 05/10/19 07:25 Freq: Status: Active Protocol: Document 05/10/19 09:42 MB (Rec: 05/10/19 10:42 MB [id number]) Hip Strength Hip Manual Muscle Testing Left Flexion (L2) 4 Good Abduction 3- Fair- Comments Supine Right Flexion (L2) 3+ Fair+ Abduction 3 Fair Comments Supine Knee Strength Knee Manual Muscle Testing Left Flexion (S2) 4 Good Extension (L3) 4 Good Right Flexion (S2) 4 Good Extension (L3) 4 Good Comments Supine Ankle/Foot Strength Ankle and Foot Manual Muscle Testing Left Dorsiflexion (L4) 5 Normal Plantarflexion (S1) 4 Good Right Dorsiflexion (L4) 5 Normal Plantarflexion (S1) 4 Good Comments Supine Toe Strength Toe Manual Muscle Testing Left Great Toe Extension 4 Good Right Great Toe Extension 4 Good PT-OP-T Assessment and Plan Start: 05/10/19 07:25 Freq: Status: Active Protocol: Document 05/10/19 09:42 MB (Rec: 05/10/19 10:42 MB [id number]) Physical Therapy Assessment Rehab Potential Rehabilitation Potential Fair Evaluation Complexity Number of Personal Factors/Comorbidities 3 or More Number of Body Systems Impaired 1-2 Clinical Presentation at Evaluation Evolving Impairments Impairments Activity Tolerance,Balance, Functional Mobility,Gait,Pain, Posture,ROM,Sensation,Soft Tissue Mobility,Strength, Transfers Other Impairments Pt is a 73 y/o female presenting with personal factors of decreased social and physical activity and some decreased safety awareness with fall at home post-op and history of falls. Body systems affected include neurological (B peripheral neuropathy), endocrine (DM2, CKD), musculoskeletal (weakness, fibromyalgia, joint changes right knee and spinal posture and pelvic floor issues per history). Her clinical presentation is evolving and her complexity is moderate. Goals 8 Retirement Goal (LTG) Pt will deny falls for 2 months by 07/11/19. LTG Duration 8 weeks 7 Retirement Goal (LTG) Pt will perform 5 reps of sit to stand without UE support in less than 13 sec by 07/11/19. LTG Duration 8 weeks 6 Airplane Flight Attendant Goal (LTG) Pt will present with improved B hip flexion, abduction strength to at least 4/5 by . LTG Duration 8 weeks 5 Retirement Goal (LTG) Pt will perform progressive HEP including pelvic realignment, core and LE strengthening, flexibility and balance exercises with I by . LTG Duration 8 weeks 4 Airplane Flight Attendant Goal (LTG) Pt will gait train 150' with her cane and mod I by 07/11/19. LTG Duration 8 weeks 3 Airplane Flight Attendant Goal (LTG) Pt will be able to ascend and descend flight of steps with cane and 1 rail with reciprocal gait and mod I by . LTG Duration 8 weeks 2 Retirement Goal (LTG) Pt will be able to lift B LEs in and out of her high bed with I by 07/11/19. LTG Duration 8 weeks 1 Impairment Oswestry LBP scale score reflects 60% impairment Retirement Goal (LTG) Pt will present with an improved Oswestry LBP scale score to reflect no more than 30% impairment by 07/11/19. LTG Duration 8 weeks Assessment Summary Assessment Pt is a 73 y/o female presenting with complicated medical history including 2 spine surgeries, multiple right knee surgeries, B foot neuropathy, fibromyalgia and other medical co-morbidities. She takes many medications ( greater than 10). She presents with postural changes, pelvic obliquities, decreased balance (Romberg normal and Romberg with eyes closed she stops with opening eyes and widening stance), decreased LE strength and flexibility. She will benefit from PT to improve pelvic alignment, core and LE strength, LE flexibility and balance. She has a history of falls. She does not typically exercise. She reports some pelvic floor issues and may benefit from PT for pelvic floor in the future. Physical Therapy Plan Frequency and Duration Frequency of Treatment 2x/Week Duration of Treatment 8 weeks Plan of Care Start Date 05/10/19 Plan of Care End Date 07/11/19 Therapeutic Interventions Therapeutic Interventions Aquatic Therapy,Balance Training,Canalithic Repositioning,Coordination Training,Gait Training,Home Exercise Program,Manual Therapy,Neuromuscular Re- education,Patient/Caregiver Education,Self-Care/Home Management,Soft Tissue Mobilization,Taping, Therapeutic Activities, Therapeutic Exercises Modalities Electric Stimulation,Hot Packs ,Ultrasound Next Visit Focus/Plan Next Note Type Treatment Note Next Visit Plan Initiate pelvic realignment exercises, cardio equipment work
--- NOTE | 2019-05-12 11:13 | PT.OTN ---
Current Diagnoses Other spondylosis with radiculopathy, lumbar region (05/12/19) Physical Therapy Treatment Note PT-OP-A Visit Information Start: 05/10/19 07:25 Freq: Status: Active Protocol: Document 05/12/19 10:27 MB (Rec: 05/12/19 10:29 MB [id number]) Out-Patient Physical Therapy Visit Information Visit Information Visit Type Initial Evaluation Visit Note Medicare, unlimited Visit Start Time 10:27 Visit Stop Time 11:07 Total Visit Minutes 40 Visit Number 2/unlimited PT-OP-B Current Condition Start: 05/10/19 07:25 Freq: Status: Active Protocol: Document 05/10/19 09:42 MB (Rec: 05/10/19 10:05 MB [id number]) Current Condition History of Current Condition Onset Date 2015 first lumbar fusion, 04/04 revision, added L3 Current Complaints LBP and right hip pain History of Current Condition Pt reports arthritis all over. She rates LBP and right posterior hip pain as 5/10 at it's worse. Activity makes pain worse. She is weaning Oxycodone every 8 hours. She is not driving yet. After last back surgery, she started HHPT after surgery. She felt HHPT was helpful. She uses a rolling walker, has a sock aide. She would like to get back to using her cane. 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 She reports right leg weaker than the left. Her has to help her get her right leg into bed. She has a high bed. She wakes up 3x a night to use the BR. She lies side to side and moves on her back. She uses ice pack often. 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 She had bladder and vaginal prolapse. She is having some spotting and is seeing PCP today. She has chronic anemia and her last HGB was 10.0. Pt reports no eye pressure changes. Prior Treatments and Tests PT in the past for balance in 2016. Her balance is much better. She did not like the shuttle balance plate but thinks it was helpful. She had 5 falls after 2016 surgery Pt has had multiple epidural injections and injections for left trochanteric bursitis PT-OP-C Subjective Start: 05/10/19 07:25 Freq: Status: Active Protocol: Document 05/12/19 10:27 MB (Rec: 05/12/19 10:43 MB [id number]) OP-PT Subjective Patient Comments Patient Comments Pt states that she had horrible left leg cramping 2 nights ago after PT assessment and multiple appointments. This was the troublesome side before her surgery. It has been a problem for years and years. She has bad vericose veins both legs. She had her electrolytes checked recently and they were okay. She is taking mild of magnesium for constipation with the pain medication and also takes magnesium normally. PT-OP-J Posture/Palpation/Skin Start: 05/10/19 07:25 Freq: Status: Active Protocol: Document 05/10/19 09:42 MB (Rec: 05/10/19 10:42 MB [id number]) Posture Evaluation Comments Posture Comments Standing: Forward head, rounded shoulder, forward lean , anterior tilt pelvis, curvature lumbar spine with convexity to the right and her surgical scars offset to the right on both sides of her spine. PT-OP-K Range of Motion Start: 05/10/19 07:25 Freq: Status: Active Protocol: Document 05/10/19 09:42 MB (Rec: 05/10/19 10:42 MB [id number]) Hip Goniometric Range of Motion Hip ROM Limitations Comments Passive SLR right 45 deg; left 50 deg Knee Goniometric Range of Motion Knee ROM Limitations Comments Pt lacks full knee extension on the right, 1/2 space between her right knee and the mat. She reports history of right knee surgeries and replacement PT-OP-M Strength Start: 05/10/19 07:25 Freq: Status: Active Protocol: Document 05/10/19 09:42 MB (Rec: 05/10/19 10:42 MB [id number]) Hip Strength Hip Manual Muscle Testing Left Flexion (L2) 4 Good Abduction 3- Fair- Comments Supine Right Flexion (L2) 3+ Fair+ Abduction 3 Fair Comments Supine Knee Strength Knee Manual Muscle Testing Left Flexion (S2) 4 Good Extension (L3) 4 Good Right Flexion (S2) 4 Good Extension (L3) 4 Good Comments Supine Ankle/Foot Strength Ankle and Foot Manual Muscle Testing Left Dorsiflexion (L4) 5 Normal Plantarflexion (S1) 4 Good Right Dorsiflexion (L4) 5 Normal Plantarflexion (S1) 4 Good Comments Supine Toe Strength Toe Manual Muscle Testing Left Great Toe Extension 4 Good Right Great Toe Extension 4 Good PT-OP-Q Treatments Start: 05/10/19 07:25 Freq: Status: Active Protocol: Document 05/12/19 10:27 MB (Rec: 05/12/19 10:43 MB [id number]) Cardio Equipment Recumbent Elliptical (Biodex) Duration (Minutes) 8 Resistance 2 Other Pt reports 5/10 back pain that does not increased Therapeutic Exercises Supine Exercises Diaphragmatic breathing Comments Performed in hook lying and added to HEP Pelvic realignment exercises Comments Performed today and added to HEP Gait Training Gait Activity Small base QC Comments Gait training with small base QC right hand and 75% step- through gait with right cane moving with left leg. Pt has leg-length discrepancy. Consider addressing further heel lift in future. PT-OP-T Assessment and Plan Start: 05/10/19 07:25 Freq: Status: Active Protocol: Document 05/12/19 10:27 MB (Rec: 05/12/19 10:29 MB [id number]) Physical Therapy Assessment Rehab Potential Rehabilitation Potential Fair Evaluation Complexity Number of Personal Factors/Comorbidities 3 or More Number of Body Systems Impaired 1-2 Clinical Presentation at Evaluation Evolving Impairments Impairments Activity Tolerance,Balance, Functional Mobility,Gait,Pain, Posture,ROM,Sensation,Soft Tissue Mobility,Strength, Transfers Other Impairments Pt is a 73 y/o female presenting with personal factors of decreased social and physical activity and some decreased safety awareness with fall at home post-op and history of falls. Body systems affected include neurological (B peripheral neuropathy), endocrine (DM2, CKD), musculoskeletal (weakness, fibromyalgia, joint changes right knee and spinal posture and pelvic floor issues per history). Her clinical presentation is evolving and her complexity is moderate. Goals 8 Enforcement Safety Officer Goal (LTG) Pt will deny falls for 2 months by 07/11/19. LTG Duration 8 weeks 7 Detention Goal (LTG) Pt will perform 5 reps of sit to stand without UE support in less than 13 sec by 07/11/19. LTG Duration 8 weeks 6 Enforcement Safety Officer Goal (LTG) Pt will present with improved B hip flexion, abduction strength to at least 4/5 by . LTG Duration 8 weeks 5 Enforcement Safety Officer Goal (LTG) Pt will perform progressive HEP including pelvic realignment, core and LE strengthening, flexibility and balance exercises with I by . LTG Duration 8 weeks 4 Enforcement Safety Officer Goal (LTG) Pt will gait train 150' with her cane and mod I by 07/11/19. LTG Duration 8 weeks 3 Detention Goal (LTG) Pt will be able to ascend and descend flight of steps with cane and 1 rail with reciprocal gait and mod I by . LTG Duration 8 weeks 2 Detention Goal (LTG) Pt will be able to lift B LEs in and out of her high bed with I by 07/11/19. LTG Duration 8 weeks 1 Impairment Oswestry LBP scale score reflects 60% impairment Detention Goal (LTG) Pt will present with an improved Oswestry LBP scale score to reflect no more than 30% impairment by 07/11/19. LTG Duration 8 weeks Assessment Summary Assessment Initiated cardio and pelvic realignment exercises today. Ed pt to consider talking with doctor about leg cramping, increasing non-caffeinated fluid intake. Pt presents with leg length discrepancy with RLE slightly longer than the left and she reports she has orthotics with a little lift in her left shoes. She thinks she had leg length change after right knee surgery, TKR, Physical Therapy Plan Frequency and Duration Frequency of Treatment 2x/Week Duration of Treatment 8 weeks Plan of Care Start Date 05/10/19 Plan of Care End Date 07/11/19 Therapeutic Interventions Therapeutic Interventions Aquatic Therapy,Balance Training,Canalithic Repositioning,Coordination Training,Gait Training,Home Exercise Program,Manual Therapy,Neuromuscular Re- education,Patient/Caregiver Education,Self-Care/Home Management,Soft Tissue Mobilization,Taping, Therapeutic Activities, Therapeutic Exercises Modalities Electric Stimulation,Hot Packs ,Ultrasound Next Visit Focus/Plan Next Note Type Treatment Note Next Visit Plan Review HEP and progress exercises--flexibility, core and LE strengthening and balance
--- NOTE | 2019-05-16 11:16 | PT.OTN ---
Current Diagnoses Other spondylosis with radiculopathy, lumbar region (05/16/19) Physical Therapy Treatment Note PT-OP-A Visit Information Start: 05/10/19 07:25 Freq: Status: Active Protocol: Document 05/16/19 10:37 MB (Rec: 05/16/19 11:15 MB [id number]) Out-Patient Physical Therapy Visit Information Visit Information Visit Type Treatment Note Visit Note Medicare, unlimited Visit Start Time 10:37 Visit Stop Time 11:15 Total Visit Minutes 38 Visit Number 3/unlimited PT-OP-B Current Condition Start: 05/10/19 07:25 Freq: Status: Active Protocol: Document 05/10/19 09:42 MB (Rec: 05/10/19 10:05 MB [id number]) Current Condition History of Current Condition Onset Date 2015 first lumbar fusion, 04/04 revision, added L3 Current Complaints LBP and right hip pain History of Current Condition Pt reports arthritis all over. She rates LBP and right posterior hip pain as 5/10 at it's worse. Activity makes pain worse. She is weaning Oxycodone every 8 hours. She is not driving yet. After last back surgery, she started HHPT after surgery. She felt HHPT was helpful. She uses a rolling walker, has a sock aide. She would like to get back to using her cane. 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 She reports right leg weaker than the left. Her has to help her get her right leg into bed. She has a high bed. She wakes up 3x a night to use the BR. She lies side to side and moves on her back. She uses ice pack often. 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 She had bladder and vaginal prolapse. She is having some spotting and is seeing PCP today. She has chronic anemia and her last HGB was 10.0. Pt reports no eye pressure changes. Prior Treatments and Tests PT in the past for balance in 2016. Her balance is much better. She did not like the shuttle balance plate but thinks it was helpful. She had 5 falls after 2016 surgery Pt has had multiple epidural injections and injections for left trochanteric bursitis PT-OP-C Subjective Start: 05/10/19 07:25 Freq: Status: Active Protocol: Document 05/16/19 10:37 MB (Rec: 05/16/19 11:15 MB [id number]) OP-PT Subjective Patient Comments Patient Comments Pt states that she was a little stiff after therapy. She reports stiffness behind her knees. She had cramps over the weekend. She talked to her mining captain and her HGB is still 10. PT-OP-J Posture/Palpation/Skin Start: 05/10/19 07:25 Freq: Status: Active Protocol: Document 05/10/19 09:42 MB (Rec: 05/10/19 10:42 MB [id number]) Posture Evaluation Comments Posture Comments Standing: Forward head, rounded shoulder, forward lean , anterior tilt pelvis, curvature lumbar spine with convexity to the right and her surgical scars offset to the right on both sides of her spine. PT-OP-K Range of Motion Start: 05/10/19 07:25 Freq: Status: Active Protocol: Document 05/10/19 09:42 MB (Rec: 05/10/19 10:42 MB [id number]) Hip Goniometric Range of Motion Hip ROM Limitations Comments Passive SLR right 45 deg; left 50 deg Knee Goniometric Range of Motion Knee ROM Limitations Comments Pt lacks full knee extension on the right, 1/2 space between her right knee and the mat. She reports history of right knee surgeries and replacement PT-OP-M Strength Start: 05/10/19 07:25 Freq: Status: Active Protocol: Document 05/10/19 09:42 MB (Rec: 05/10/19 10:42 MB [id number]) Hip Strength Hip Manual Muscle Testing Left Flexion (L2) 4 Good Abduction 3- Fair- Comments Supine Right Flexion (L2) 3+ Fair+ Abduction 3 Fair Comments Supine Knee Strength Knee Manual Muscle Testing Left Flexion (S2) 4 Good Extension (L3) 4 Good Right Flexion (S2) 4 Good Extension (L3) 4 Good Comments Supine Ankle/Foot Strength Ankle and Foot Manual Muscle Testing Left Dorsiflexion (L4) 5 Normal Plantarflexion (S1) 4 Good Right Dorsiflexion (L4) 5 Normal Plantarflexion (S1) 4 Good Comments Supine Toe Strength Toe Manual Muscle Testing Left Great Toe Extension 4 Good Right Great Toe Extension 4 Good PT-OP-Q Treatments Start: 05/10/19 07:25 Freq: Status: Active Protocol: Document 05/16/19 10:37 MB (Rec: 05/16/19 11:15 MB [id number]) Cardio Equipment Recumbent Elliptical (Biodex) Duration (Minutes) 10 Resistance 1 Other No back pain Therapeutic Exercises Supine Exercises Hip flexor stretch with leg straight and opposite leg up Comments Performed 30 sec x2 Glute squeezes Comments Performed this date and held 3 sec each rep, 5 reps, ed sit/ supine Log rolling practice x2 Comments Performed this date and pt meets goal Diaphragmatic breathing Comments Performed in hook lying today Pelvic realignment exercises Comments Performed again this date PT-OP-T Assessment and Plan Start: 05/10/19 07:25 Freq: Status: Active Protocol: Document 05/16/19 10:37 MB (Rec: 05/16/19 11:15 MB [id number]) Physical Therapy Assessment Rehab Potential Rehabilitation Potential Fair Evaluation Complexity Number of Personal Factors/Comorbidities 3 or More Number of Body Systems Impaired 1-2 Clinical Presentation at Evaluation Evolving Impairments Impairments Activity Tolerance,Balance, Functional Mobility,Gait,Pain, Posture,ROM,Sensation,Soft Tissue Mobility,Strength, Transfers Other Impairments Pt is a 73 y/o female presenting with personal factors of decreased social and physical activity and some decreased safety awareness with fall at home post-op and history of falls. Body systems affected include neurological (B peripheral neuropathy), endocrine (DM2, CKD), musculoskeletal (weakness, fibromyalgia, joint changes right knee and spinal posture and pelvic floor issues per history). Her clinical presentation is evolving and her complexity is moderate. Goals 8 Longterm Goal (LTG) Pt will deny falls for 2 months by 07/11/19. LTG Duration 8 weeks 7 Longterm Goal (LTG) Pt will perform 5 reps of sit to stand without UE support in less than 13 sec by 07/11/19. LTG Duration 8 weeks 6 Metal Room Dental Technician Goal (LTG) Pt will present with improved B hip flexion, abduction strength to at least 4/5 by . LTG Duration 8 weeks 5 Longterm Goal (LTG) Pt will perform progressive HEP including pelvic realignment, core and LE strengthening, flexibility and balance exercises with I by . LTG Duration 8 weeks 4 Metal Room Dental Technician Goal (LTG) Pt will gait train 150' with her cane and mod I by 07/11/19. LTG Duration 8 weeks 3 Metal Room Dental Technician Goal (LTG) Pt will be able to ascend and descend flight of steps with cane and 1 rail with reciprocal gait and mod I by . LTG Duration 8 weeks 2 Longterm Goal (LTG) Pt will be able to lift B LEs in and out of her high bed with I by 07/11/19. 05/16/19: Goal met LTG Duration 8 weeks 1 Impairment Oswestry LBP scale score reflects 60% impairment Longterm Goal (LTG) Pt will present with an improved Oswestry LBP scale score to reflect no more than 30% impairment by 07/11/19. LTG Duration 8 weeks Assessment Summary Assessment Pt met bed mobility goal this date after practice. Progressed hip flexor stretching this date as well as glute squeeze. Physical Therapy Plan Frequency and Duration Frequency of Treatment 2x/Week Duration of Treatment 8 weeks Plan of Care Start Date 05/10/19 Plan of Care End Date 07/11/19 Therapeutic Interventions Therapeutic Interventions Aquatic Therapy,Balance Training,Canalithic Repositioning,Coordination Training,Gait Training,Home Exercise Program,Manual Therapy,Neuromuscular Re- education,Patient/Caregiver Education,Self-Care/Home Management,Soft Tissue Mobilization,Taping, Therapeutic Activities, Therapeutic Exercises Modalities Electric Stimulation,Hot Packs ,Ultrasound Other Referrals/Consults Referrals/Consults Recommended Pt con't to report cramping in her legs and she is to start taking iron everyday. She also takes a statin. Recommend talking with doctor about her complaints. She reports she has constipation as well. She is stretching out her oxycodone. Next Visit Focus/Plan Next Note Type Treatment Note Next Visit Plan Review HEP and progress exercises--flexibility, core and LE strengthening and balance
--- NOTE | 2019-05-19 11:16 | PT.OTN ---
Current Diagnoses Other spondylosis with radiculopathy, lumbar region (05/19/19) Physical Therapy Treatment Note PT-OP-A Visit Information Start: 05/10/19 07:25 Freq: Status: Active Protocol: Document 05/19/19 10:37 MB (Rec: 05/19/19 11:16 MB [id number]) Out-Patient Physical Therapy Visit Information Visit Information Visit Type Treatment Note Visit Note Medicare, unlimited Visit Start Time 10:37 Visit Stop Time 11:15 Total Visit Minutes 38 Visit Number 4/unlimited PT-OP-B Current Condition Start: 05/10/19 07:25 Freq: Status: Active Protocol: Document 05/10/19 09:42 MB (Rec: 05/10/19 10:05 MB [id number]) Current Condition History of Current Condition Onset Date 2015 first lumbar fusion, 04/04 revision, added L3 Current Complaints LBP and right hip pain History of Current Condition Pt reports arthritis all over. She rates LBP and right posterior hip pain as 5/10 at it's worse. Activity makes pain worse. She is weaning Oxycodone every 8 hours. She is not driving yet. After last back surgery, she started HHPT after surgery. She felt HHPT was helpful. She uses a rolling walker, has a sock aide. She would like to get back to using her cane. 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 She reports right leg weaker than the left. Her has to help her get her right leg into bed. She has a high bed. She wakes up 3x a night to use the BR. She lies side to side and moves on her back. She uses ice pack often. 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 She had bladder and vaginal prolapse. She is having some spotting and is seeing PCP today. She has chronic anemia and her last HGB was 10.0. Pt reports no eye pressure changes. Prior Treatments and Tests PT in the past for balance in 2016. Her balance is much better. She did not like the shuttle balance plate but thinks it was helpful. She had 5 falls after 2016 surgery Pt has had multiple epidural injections and injections for left trochanteric bursitis PT-OP-C Subjective Start: 05/10/19 07:25 Freq: Status: Active Protocol: Document 05/19/19 10:37 MB (Rec: 05/19/19 11:16 MB [id number]) OP-PT Subjective Patient Comments Patient Comments Pt states that maybe she put too much pressure with anterior hip stretch lying down. She has soreness in her posterior left knee and left thigh. She is taking medication every 9 hours. She has an old orthotic that she will bring in when it is dry for PT to watch her walk. Her softer orthotics feel good. PT-OP-J Posture/Palpation/Skin Start: 05/10/19 07:25 Freq: Status: Active Protocol: Document 05/10/19 09:42 MB (Rec: 05/10/19 10:42 MB [id number]) Posture Evaluation Comments Posture Comments Standing: Forward head, rounded shoulder, forward lean , anterior tilt pelvis, curvature lumbar spine with convexity to the right and her surgical scars offset to the right on both sides of her spine. PT-OP-K Range of Motion Start: 05/10/19 07:25 Freq: Status: Active Protocol: Document 05/10/19 09:42 MB (Rec: 05/10/19 10:42 MB [id number]) Hip Goniometric Range of Motion Hip ROM Limitations Comments Passive SLR right 45 deg; left 50 deg Knee Goniometric Range of Motion Knee ROM Limitations Comments Pt lacks full knee extension on the right, 1/2 space between her right knee and the mat. She reports history of right knee surgeries and replacement PT-OP-M Strength Start: 05/10/19 07:25 Freq: Status: Active Protocol: Document 05/10/19 09:42 MB (Rec: 05/10/19 10:42 MB [id number]) Hip Strength Hip Manual Muscle Testing Left Flexion (L2) 4 Good Abduction 3- Fair- Comments Supine Right Flexion (L2) 3+ Fair+ Abduction 3 Fair Comments Supine Knee Strength Knee Manual Muscle Testing Left Flexion (S2) 4 Good Extension (L3) 4 Good Right Flexion (S2) 4 Good Extension (L3) 4 Good Comments Supine Ankle/Foot Strength Ankle and Foot Manual Muscle Testing Left Dorsiflexion (L4) 5 Normal Plantarflexion (S1) 4 Good Right Dorsiflexion (L4) 5 Normal Plantarflexion (S1) 4 Good Comments Supine Toe Strength Toe Manual Muscle Testing Left Great Toe Extension 4 Good Right Great Toe Extension 4 Good PT-OP-Q Treatments Start: 05/10/19 07:25 Freq: Status: Active Protocol: Document 05/19/19 10:37 MB (Rec: 05/19/19 11:16 MB [id number]) Therapeutic Exercises Supine Exercises Lumbar rotation in hook lying Comments Lumbar rotation in hook lying to decrease tension Standing Exercises Calf stretches in standing Comments Performed today and added to HEP Manual Therapy Treatment Other Other Manual Treatments Gentle patellar lift left let, fascial release left quads and gentle STM PT-OP-T Assessment and Plan Start: 05/10/19 07:25 Freq: Status: Active Protocol: Document 05/19/19 10:37 MB (Rec: 05/19/19 11:16 MB [id number]) Physical Therapy Assessment Rehab Potential Rehabilitation Potential Fair Evaluation Complexity Number of Personal Factors/Comorbidities 3 or More Number of Body Systems Impaired 1-2 Clinical Presentation at Evaluation Evolving Impairments Impairments Activity Tolerance,Balance, Functional Mobility,Gait,Pain, Posture,ROM,Sensation,Soft Tissue Mobility,Strength, Transfers Other Impairments Pt is a 73 y/o female presenting with personal factors of decreased social and physical activity and some decreased safety awareness with fall at home post-op and history of falls. Body systems affected include neurological (B peripheral neuropathy), endocrine (DM2, CKD), musculoskeletal (weakness, fibromyalgia, joint changes right knee and spinal posture and pelvic floor issues per history). Her clinical presentation is evolving and her complexity is moderate. Goals 8 Detention Goal (LTG) Pt will deny falls for 2 months by 07/11/19. LTG Duration 8 weeks 7 Detention Goal (LTG) Pt will perform 5 reps of sit to stand without UE support in less than 13 sec by 07/11/19. LTG Duration 8 weeks 6 Detention Goal (LTG) Pt will present with improved B hip flexion, abduction strength to at least 4/5 by . LTG Duration 8 weeks 5 Detention Goal (LTG) Pt will perform progressive HEP including pelvic realignment, core and LE strengthening, flexibility and balance exercises with I by . LTG Duration 8 weeks 4 Detention Goal (LTG) Pt will gait train 150' with her cane and mod I by 07/11/19. LTG Duration 8 weeks 3 [employer] Goal (LTG) Pt will be able to ascend and descend flight of steps with cane and 1 rail with reciprocal gait and mod I by . LTG Duration 8 weeks 2 Detention Goal (LTG) Pt will be able to lift B LEs in and out of her high bed with I by 07/11/19. 05/16/19: Goal met LTG Duration 8 weeks 1 Impairment Oswestry LBP scale score reflects 60% impairment Detention Goal (LTG) Pt will present with an improved Oswestry LBP scale score to reflect no more than 30% impairment by 07/11/19. LTG Duration 8 weeks Assessment Summary Assessment Performed gentle lumbar rotations this date to help deal with tightened back when she has it. Pt responds well to gentle manual work today. Con't progression as pt tolerates. Physical Therapy Plan Frequency and Duration Frequency of Treatment 2x/Week Duration of Treatment 8 weeks Plan of Care Start Date 05/10/19 Plan of Care End Date 07/11/19 Therapeutic Interventions Therapeutic Interventions Aquatic Therapy,Balance Training,Canalithic Repositioning,Coordination Training,Gait Training,Home Exercise Program,Manual Therapy,Neuromuscular Re- education,Patient/Caregiver Education,Self-Care/Home Management,Soft Tissue Mobilization,Taping, Therapeutic Activities, Therapeutic Exercises Modalities Electric Stimulation,Hot Packs ,Ultrasound Other Referrals/Consults Referrals/Consults Recommended Pt con't to report cramping in her legs and she is to start taking iron everyday. She also takes a statin. Recommend talking with doctor about her complaints. She reports she has constipation as well. She is stretching out her oxycodone. Next Visit Focus/Plan Next Note Type Treatment Note Next Visit Plan Review HEP and progress exercises--flexibility, core and LE strengthening and balance
--- NOTE | 2019-05-23 11:11 | PT.OTN ---
Current Diagnoses Other spondylosis with radiculopathy, lumbar region (05/23/19) Physical Therapy Treatment Note PT-OP-A Visit Information Start: 05/10/19 07:25 Freq: Status: Active Protocol: Document 05/23/19 10:25 MB (Rec: 05/23/19 10:36 MB [id number]) Out-Patient Physical Therapy Visit Information Visit Information Visit Type Treatment Note Visit Note Medicare, unlimited Visit Start Time 10:25 Visit Stop Time 11:05 Total Visit Minutes 40 Visit Number 5/unlimited PT-OP-B Current Condition Start: 05/10/19 07:25 Freq: Status: Active Protocol: Document 05/10/19 09:42 MB (Rec: 05/10/19 10:05 MB [id number]) Current Condition History of Current Condition Onset Date 2015 first lumbar fusion, 04/04 revision, added L3 Current Complaints LBP and right hip pain History of Current Condition Pt reports arthritis all over. She rates LBP and right posterior hip pain as 5/10 at it's worse. Activity makes pain worse. She is weaning Oxycodone every 8 hours. She is not driving yet. After last back surgery, she started HHPT after surgery. She felt HHPT was helpful. She uses a rolling walker, has a sock aide. She would like to get back to using her cane. 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 She reports right leg weaker than the left. Her has to help her get her right leg into bed. She has a high bed. She wakes up 3x a night to use the BR. She lies side to side and moves on her back. She uses ice pack often. 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 She had bladder and vaginal prolapse. She is having some spotting and is seeing PCP today. She has chronic anemia and her last HGB was 10.0. Pt reports no eye pressure changes. Prior Treatments and Tests PT in the past for balance in 2016. Her balance is much better. She did not like the shuttle balance plate but thinks it was helpful. She had 5 falls after 2016 surgery Pt has had multiple epidural injections and injections for left trochanteric bursitis PT-OP-C Subjective Start: 05/10/19 07:25 Freq: Status: Active Protocol: Document 05/23/19 10:25 MB (Rec: 05/23/19 10:36 MB [id number]) OP-PT Subjective Patient Comments Patient Comments Pt states that it has been busy few days. She has been up and down and getting things done around the house. Pt states that she went to the doctor and got a prescription for Tramadol to replace the Oxycodone. She was told to take Vitamin C to help the absorption of iron. She has less cramping. PT-OP-J Posture/Palpation/Skin Start: 05/10/19 07:25 Freq: Status: Active Protocol: Document 05/10/19 09:42 MB (Rec: 05/10/19 10:42 MB [id number]) Posture Evaluation Comments Posture Comments Standing: Forward head, rounded shoulder, forward lean , anterior tilt pelvis, curvature lumbar spine with convexity to the right and her surgical scars offset to the right on both sides of her spine. PT-OP-K Range of Motion Start: 05/10/19 07:25 Freq: Status: Active Protocol: Document 05/10/19 09:42 MB (Rec: 05/10/19 10:42 MB [id number]) Hip Goniometric Range of Motion Hip ROM Limitations Comments Passive SLR right 45 deg; left 50 deg Knee Goniometric Range of Motion Knee ROM Limitations Comments Pt lacks full knee extension on the right, 1/2 space between her right knee and the mat. She reports history of right knee surgeries and replacement PT-OP-M Strength Start: 05/10/19 07:25 Freq: Status: Active Protocol: Document 05/10/19 09:42 MB (Rec: 05/10/19 10:42 MB [id number]) Hip Strength Hip Manual Muscle Testing Left Flexion (L2) 4 Good Abduction 3- Fair- Comments Supine Right Flexion (L2) 3+ Fair+ Abduction 3 Fair Comments Supine Knee Strength Knee Manual Muscle Testing Left Flexion (S2) 4 Good Extension (L3) 4 Good Right Flexion (S2) 4 Good Extension (L3) 4 Good Comments Supine Ankle/Foot Strength Ankle and Foot Manual Muscle Testing Left Dorsiflexion (L4) 5 Normal Plantarflexion (S1) 4 Good Right Dorsiflexion (L4) 5 Normal Plantarflexion (S1) 4 Good Comments Supine Toe Strength Toe Manual Muscle Testing Left Great Toe Extension 4 Good Right Great Toe Extension 4 Good PT-OP-Q Treatments Start: 05/10/19 07:25 Freq: Status: Active Protocol: Document 05/23/19 10:25 MB (Rec: 05/23/19 10:39 MB [id number]) Cardio Equipment Recumbent Elliptical (Biodex) Duration (Minutes) 7 Resistance 3 Gym Equipment Shuttle Recovery Shuttle Recovery 40# toe raises Reps/Time 10 reps, toe presses 10 reps 50# Reps/Time 50# with ball between knees, two sets of 10 Gait Training Gait Activity Gait with small based QC with inserts vs custom made orthotics Comments Pt states that the orthotics feel like steel when she walks on them too long. Her gait with inserts--pt favors LLE and leans to the right with cane in her right hand. She has LE degenerative/postural changes. With custom-made orthotics: pt reports similar 5/10 back pain and gait is similar. Gait is slightly faster with blue Superfeet and equal pain. Pt to consider Superfeet. Pt walks barefoot at home and ed to get shoes for indoor. PT-OP-T Assessment and Plan Start: 05/10/19 07:25 Freq: Status: Active Protocol: Document 05/23/19 10:25 MB (Rec: 05/23/19 10:36 MB [id number]) Physical Therapy Assessment Rehab Potential Rehabilitation Potential Fair Evaluation Complexity Number of Personal Factors/Comorbidities 3 or More Number of Body Systems Impaired 1-2 Clinical Presentation at Evaluation Evolving Impairments Impairments Activity Tolerance,Balance, Functional Mobility,Gait,Pain, Posture,ROM,Sensation,Soft Tissue Mobility,Strength, Transfers Other Impairments Pt is a 73 y/o female presenting with personal factors of decreased social and physical activity and some decreased safety awareness with fall at home post-op and history of falls. Body systems affected include neurological (B peripheral neuropathy), endocrine (DM2, CKD), musculoskeletal (weakness, fibromyalgia, joint changes right knee and spinal posture and pelvic floor issues per history). Her clinical presentation is evolving and her complexity is moderate. Goals 8 [facility] Goal (LTG) Pt will deny falls for 2 months by 07/11/19. LTG Duration 8 weeks 7 [employer] Goal (LTG) Pt will perform 5 reps of sit to stand without UE support in less than 13 sec by 07/11/19. LTG Duration 8 weeks 6 [employer] Goal (LTG) Pt will present with improved B hip flexion, abduction strength to at least 4/5 by . LTG Duration 8 weeks 5 [employer] Goal (LTG) Pt will perform progressive HEP including pelvic realignment, core and LE strengthening, flexibility and balance exercises with I by . LTG Duration 8 weeks 4 [facility] Goal (LTG) Pt will gait train 150' with her cane and mod I by 07/11/19. LTG Duration 8 weeks 3 [facility] Goal (LTG) Pt will be able to ascend and descend flight of steps with cane and 1 rail with reciprocal gait and mod I by . LTG Duration 8 weeks 2 [facility] Goal (LTG) Pt will be able to lift B LEs in and out of her high bed with I by 07/11/19. 05/16/19: Goal met LTG Duration 8 weeks 1 Impairment Oswestry LBP scale score reflects 60% impairment [employer] Goal (LTG) Pt will present with an improved Oswestry LBP scale score to reflect no more than 30% impairment by 07/11/19. LTG Duration 8 weeks Assessment Summary Assessment Pain after therapy and during therapy is in low back in the middle of the sacrum rated 5/ 10. Consider core progression in the future treatments. Physical Therapy Plan Frequency and Duration Frequency of Treatment 2x/Week Duration of Treatment 8 weeks Plan of Care Start Date 05/10/19 Plan of Care End Date 07/11/19 Therapeutic Interventions Therapeutic Interventions Aquatic Therapy,Balance Training,Canalithic Repositioning,Coordination Training,Gait Training,Home Exercise Program,Manual Therapy,Neuromuscular Re- education,Patient/Caregiver Education,Self-Care/Home Management,Soft Tissue Mobilization,Taping, Therapeutic Activities, Therapeutic Exercises Modalities Electric Stimulation,Hot Packs ,Ultrasound Next Visit Focus/Plan Next Note Type Treatment Note Next Visit Plan Review HEP and progress exercises--flexibility, core and LE strengthening and balance
--- NOTE | 2019-05-31 13:00 | PT.OTN ---
Current Diagnoses Other spondylosis with radiculopathy, lumbar region (05/31/19) Physical Therapy Treatment Note PT-OP-A Visit Information Start: 05/10/19 07:25 Freq: Status: Active Protocol: Document 05/31/19 12:19 SP (Rec: 05/31/19 13:04 SP [id number]) Out-Patient Physical Therapy Visit Information Visit Information Visit Type Treatment Note Visit Note Progress self manual therapy education, progress stretching and strengthening. Visit Start Time 12:19 Visit Stop Time 13:00 Total Visit Minutes 41 Visit Number 6/unlimited Number of PRODUCTION MECHANIC Visits 1 PT-OP-B Current Condition Start: 05/10/19 07:25 Freq: Status: Active Protocol: Document 05/10/19 09:42 MB (Rec: 05/10/19 10:05 MB [id number]) Current Condition History of Current Condition Onset Date 2015 first lumbar fusion, 04/04 revision, added L3 Current Complaints LBP and right hip pain History of Current Condition Pt reports arthritis all over. She rates LBP and right posterior hip pain as 5/10 at it's worse. Activity makes pain worse. She is weaning Oxycodone every 8 hours. She is not driving yet. After last back surgery, she started HHPT after surgery. She felt HHPT was helpful. She uses a rolling walker, has a sock aide. She would like to get back to using her cane. 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 She reports right leg weaker than the left. Her has to help her get her right leg into bed. She has a high bed. She wakes up 3x a night to use the BR. She lies side to side and moves on her back. She uses ice pack often. 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 She had bladder and vaginal prolapse. She is having some spotting and is seeing PCP today. She has chronic anemia and her last HGB was 10.0. Pt reports no eye pressure changes. Prior Treatments and Tests PT in the past for balance in 2016. Her balance is much better. She did not like the shuttle balance plate but thinks it was helpful. She had 5 falls after 2016 surgery Pt has had multiple epidural injections and injections for left trochanteric bursitis PT-OP-C Subjective Start: 05/10/19 07:25 Freq: Status: Active Protocol: Document 05/31/19 12:19 SP (Rec: 05/31/19 13:04 SP [id number]) OP-PT Subjective Patient Comments Patient Comments Pt stated was compliant with HEP when didnt' feel good. She ordered superfeet shoe inserts but hasn't come in yet. PT-OP-J Posture/Palpation/Skin Start: 05/10/19 07:25 Freq: Status: Active Protocol: Document 05/10/19 09:42 MB (Rec: 05/10/19 10:42 MB [id number]) Posture Evaluation Comments Posture Comments Standing: Forward head, rounded shoulder, forward lean , anterior tilt pelvis, curvature lumbar spine with convexity to the right and her surgical scars offset to the right on both sides of her spine. PT-OP-K Range of Motion Start: 05/10/19 07:25 Freq: Status: Active Protocol: Document 05/10/19 09:42 MB (Rec: 05/10/19 10:42 MB [id number]) Hip Goniometric Range of Motion Hip ROM Limitations Comments Passive SLR right 45 deg; left 50 deg Knee Goniometric Range of Motion Knee ROM Limitations Comments Pt lacks full knee extension on the right, 1/2 space between her right knee and the mat. She reports history of right knee surgeries and replacement PT-OP-M Strength Start: 05/10/19 07:25 Freq: Status: Active Protocol: Document 05/10/19 09:42 MB (Rec: 05/10/19 10:42 MB [id number]) Hip Strength Hip Manual Muscle Testing Left Flexion (L2) 4 Good Abduction 3- Fair- Comments Supine Right Flexion (L2) 3+ Fair+ Abduction 3 Fair Comments Supine Knee Strength Knee Manual Muscle Testing Left Flexion (S2) 4 Good Extension (L3) 4 Good Right Flexion (S2) 4 Good Extension (L3) 4 Good Comments Supine Ankle/Foot Strength Ankle and Foot Manual Muscle Testing Left Dorsiflexion (L4) 5 Normal Plantarflexion (S1) 4 Good Right Dorsiflexion (L4) 5 Normal Plantarflexion (S1) 4 Good Comments Supine Toe Strength Toe Manual Muscle Testing Left Great Toe Extension 4 Good Right Great Toe Extension 4 Good PT-OP-Q Treatments Start: 05/10/19 07:25 Freq: Status: Active Protocol: Document 05/31/19 12:19 SP (Rec: 05/31/19 13:04 SP [id number]) Cardio Equipment Recumbent Elliptical (BiodCerac) Duration (Minutes) 6 Resistance 4 Other 1 min resistance 3 Therapeutic Exercises Supine Exercises core march Reps/Minutes 2x5 Comments Cued PPT, alternate LE trans ab heel slide Reps/Minutes 2x5 Comments cued PPT, slow small range slide Lumbar rotation in hook lying Comments Lumbar rotation in hook lying to decrease tension Standing Exercises side stepping Equipment Used hurry cane Reps/Minutes 10 ft x3 laps AROM step tap Equipment Used 6 step, Hurry cane Reps/Minutes 2x10 PT-OP-T Assessment and Plan Start: 05/10/19 07:25 Freq: Status: Active Protocol: Document 05/31/19 12:19 SP (Rec: 05/31/19 13:04 SP [id number]) Physical Therapy Assessment Goals 8 Retirement Goal (LTG) Pt will deny falls for 2 months by 07/11/19. LTG Duration 8 weeks 7 Retirement Goal (LTG) Pt will perform 5 reps of sit to stand without UE support in less than 13 sec by 07/11/19. LTG Duration 8 weeks 6 Retirement Goal (LTG) Pt will present with improved B hip flexion, abduction strength to at least 4/5 by . LTG Duration 8 weeks 5 Instructional Design Consultant Goal (LTG) Pt will perform progressive HEP including pelvic realignment, core and LE strengthening, flexibility and balance exercises with I by . LTG Duration 8 weeks 4 Instructional Design Consultant Goal (LTG) Pt will gait train 150' with her cane and mod I by 07/11/19. LTG Duration 8 weeks 3 Instructional Design Consultant Goal (LTG) Pt will be able to ascend and descend flight of steps with cane and 1 rail with reciprocal gait and mod I by . LTG Duration 8 weeks 2 Retirement Goal (LTG) Pt will be able to lift B LEs in and out of her high bed with I by 07/11/19. 05/16/19: Goal met LTG Duration 8 weeks 1 Impairment Oswestry LBP scale score reflects 60% impairment Retirement Goal (LTG) Pt will present with an improved Oswestry LBP scale score to reflect no more than 30% impairment by 07/11/19. LTG Duration 8 weeks Assessment Summary Assessment Pt tolerated added side stepping, step tap requiring hurry cane support, core heel slide and march with cuing for PPT awarenes and slow small range to allow for decreased LB recruitment. No increased pain post tx. Pt improving gait with hurry cane , decreased lateral lean with cues for level pelvis. Physical Therapy Plan Frequency and Duration Frequency of Treatment 2x/Week Duration of Treatment 8 weeks Plan of Care Start Date 05/10/19 Plan of Care End Date 07/11/19 Therapeutic Interventions Therapeutic Interventions Aquatic Therapy,Balance Training,Canalithic Repositioning,Coordination Training,Gait Training,Home Exercise Program,Manual Therapy,Neuromuscular Re- education,Patient/Caregiver Education,Self-Care/Home Management,Soft Tissue Mobilization,Taping, Therapeutic Activities, Therapeutic Exercises Modalities Electric Stimulation,Hot Packs ,Ultrasound Next Visit Focus/Plan Next Note Type Treatment Note Next Visit Plan Review HEP and progress exercises--flexibility, core and LE strengthening and balance
--- NOTE | 2019-06-03 15:17 | PT.OTN ---
Current Diagnoses Other spondylosis with radiculopathy, lumbar region (06/03/19) Physical Therapy Treatment Note PT-OP-A Visit Information Start: 05/10/19 07:25 Freq: Status: Active Protocol: Document 06/03/19 14:33 MB (Rec: 06/03/19 15:16 MB [id number]) Out-Patient Physical Therapy Visit Information Visit Information Visit Type Treatment Note Visit Note Medicare, unlimited Visit Start Time 14:33 Visit Stop Time 15:13 Total Visit Minutes 40 Visit Number 6/unlimited PT-OP-B Current Condition Start: 05/10/19 07:25 Freq: Status: Active Protocol: Document 05/10/19 09:42 MB (Rec: 05/10/19 10:05 MB [id number]) Current Condition History of Current Condition Onset Date 2015 first lumbar fusion, 04/04 revision, added L3 Current Complaints LBP and right hip pain History of Current Condition Pt reports arthritis all over. She rates LBP and right posterior hip pain as 5/10 at it's worse. Activity makes pain worse. She is weaning Oxycodone every 8 hours. She is not driving yet. After last back surgery, she started HHPT after surgery. She felt HHPT was helpful. She uses a rolling walker, has a sock aide. She would like to get back to using her cane. 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 She reports right leg weaker than the left. Her has to help her get her right leg into bed. She has a high bed. She wakes up 3x a night to use the BR. She lies side to side and moves on her back. She uses ice pack often. 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 She had bladder and vaginal prolapse. She is having some spotting and is seeing PCP today. She has chronic anemia and her last HGB was 10.0. Pt reports no eye pressure changes. Prior Treatments and Tests PT in the past for balance in 2016. Her balance is much better. She did not like the shuttle balance plate but thinks it was helpful. She had 5 falls after 2016 surgery Pt has had multiple epidural injections and injections for left trochanteric bursitis PT-OP-C Subjective Start: 05/10/19 07:25 Freq: Status: Active Protocol: Document 06/03/19 14:33 MB (Rec: 06/03/19 15:16 MB [id number]) OP-PT Subjective Patient Comments Patient Comments Pt states she might have done too much in the house around the holidays. She would like to be able to drive herself places if she can get off the walker. Pt states that she is off all her medications except Tramadol and she takes it at night and was on it pre-op. Pt states that she is going down the steps to see her dog soon . Pt states that she thought she might have gotten a little more back pain after using the shuttle two treatments ago . PT-OP-J Posture/Palpation/Skin Start: 05/10/19 07:25 Freq: Status: Active Protocol: Document 05/10/19 09:42 MB (Rec: 05/10/19 10:42 MB [id number]) Posture Evaluation Comments Posture Comments Standing: Forward head, rounded shoulder, forward lean , anterior tilt pelvis, curvature lumbar spine with convexity to the right and her surgical scars offset to the right on both sides of her spine. PT-OP-K Range of Motion Start: 05/10/19 07:25 Freq: Status: Active Protocol: Document 05/10/19 09:42 MB (Rec: 05/10/19 10:42 MB [id number]) Hip Goniometric Range of Motion Hip ROM Limitations Comments Passive SLR right 45 deg; left 50 deg Knee Goniometric Range of Motion Knee ROM Limitations Comments Pt lacks full knee extension on the right, 1/2 space between her right knee and the mat. She reports history of right knee surgeries and replacement PT-OP-M Strength Start: 05/10/19 07:25 Freq: Status: Active Protocol: Document 05/10/19 09:42 MB (Rec: 05/10/19 10:42 MB [id number]) Hip Strength Hip Manual Muscle Testing Left Flexion (L2) 4 Good Abduction 3- Fair- Comments Supine Right Flexion (L2) 3+ Fair+ Abduction 3 Fair Comments Supine Knee Strength Knee Manual Muscle Testing Left Flexion (S2) 4 Good Extension (L3) 4 Good Right Flexion (S2) 4 Good Extension (L3) 4 Good Comments Supine Ankle/Foot Strength Ankle and Foot Manual Muscle Testing Left Dorsiflexion (L4) 5 Normal Plantarflexion (S1) 4 Good Right Dorsiflexion (L4) 5 Normal Plantarflexion (S1) 4 Good Comments Supine Toe Strength Toe Manual Muscle Testing Left Great Toe Extension 4 Good Right Great Toe Extension 4 Good PT-OP-Q Treatments Start: 05/10/19 07:25 Freq: Status: Active Protocol: Document 06/03/19 14:33 MB (Rec: 06/03/19 15:16 MB [id number]) Cardio Equipment Recumbent Elliptical (TagCash) Duration (Minutes) 7 Resistance 3 Therapeutic Exercises Supine Exercises core march Reps/Minutes 2 sets Comments 5 reps performed today trans ab heel slide Reps/Minutes 2 sets Comments 5 reps performed today Hip flexor stretch with leg straight and opposite leg up Comments 30 sec hold stretch, B Pelvic realignment exercises Comments Performed 5 reps all three exercises B Other Exercises Reciprocal step ups and step downs Comments 5 reps both rails and added to HEP 6x/wk PT-OP-T Assessment and Plan Start: 05/10/19 07:25 Freq: Status: Active Protocol: Document 06/03/19 14:33 MB (Rec: 06/03/19 15:16 MB [id number]) Physical Therapy Assessment Rehab Potential Rehabilitation Potential Fair Evaluation Complexity Number of Personal Factors/Comorbidities 3 or More Number of Body Systems Impaired 1-2 Clinical Presentation at Evaluation Evolving Impairments Impairments Activity Tolerance,Balance, Functional Mobility,Gait,Pain, Posture,ROM,Sensation,Soft Tissue Mobility,Strength, Transfers Other Impairments Pt is a 73 y/o female presenting with personal factors of decreased social and physical activity and some decreased safety awareness with fall at home post-op and history of falls. Body systems affected include neurological (B peripheral neuropathy), endocrine (DM2, CKD), musculoskeletal (weakness, fibromyalgia, joint changes right knee and spinal posture and pelvic floor issues per history). Her clinical presentation is evolving and her complexity is moderate. Goals 8 Chcf Goal (LTG) Pt will deny falls for 2 months by 07/11/19. LTG Duration 8 weeks 7 Chcf Goal (LTG) Pt will perform 5 reps of sit to stand without UE support in less than 13 sec by 07/11/19. LTG Duration 8 weeks 6 Chcf Goal (LTG) Pt will present with improved B hip flexion, abduction strength to at least 4/5 by . LTG Duration 8 weeks 5 Yard Attendant Goal (LTG) Pt will perform progressive HEP including pelvic realignment, core and LE strengthening, flexibility and balance exercises with I by . LTG Duration 8 weeks 4 Yard Attendant Goal (LTG) Pt will gait train 150' with her cane and mod I by 07/11/19. LTG Duration 8 weeks 3 Chcf Goal (LTG) Pt will be able to ascend and descend flight of steps with cane and 1 rail with reciprocal gait and mod I by . LTG Duration 8 weeks 2 Yard Attendant Goal (LTG) Pt will be able to lift B LEs in and out of her high bed with I by 07/11/19. 05/16/19: Goal met LTG Duration 8 weeks 1 Impairment Oswestry LBP scale score reflects 60% impairment [facility]cf Goal (LTG) Pt will present with an improved Oswestry LBP scale score to reflect no more than 30% impairment by 07/11/19. LTG Duration 8 weeks Assessment Summary Assessment Reviewed many of her exercises , improved form. Consider adding gentle hamstring stretch in hook lying as well as adductor stretch in future treatment. Con't progression. Physical Therapy Plan Frequency and Duration Frequency of Treatment 2x/Week Duration of Treatment 8 weeks Plan of Care Start Date 05/10/19 Plan of Care End Date 07/11/19 Therapeutic Interventions Therapeutic Interventions Aquatic Therapy,Balance Training,Canalithic Repositioning,Coordination Training,Gait Training,Home Exercise Program,Manual Therapy,Neuromuscular Re- education,Patient/Caregiver Education,Self-Care/Home Management,Soft Tissue Mobilization,Taping, Therapeutic Activities, Therapeutic Exercises Modalities Electric Stimulation,Hot Packs ,Ultrasound Next Visit Focus/Plan Next Note Type Treatment Note Next Visit Plan Progress flexibility, core and LE strengthening and balance
--- NOTE | 2019-06-08 13:02 | PT.OTN ---
Current Diagnoses Other spondylosis with radiculopathy, lumbar region (06/08/19) Physical Therapy Treatment Note PT-OP-A Visit Information Start: 05/10/19 07:25 Freq: Status: Active Protocol: Document 06/08/19 12:20 MB (Rec: 06/08/19 13:02 MB [id number]) Out-Patient Physical Therapy Visit Information Visit Information Visit Type Treatment Note Visit Note Medicare, unlimited Visit Start Time 12:20 Visit Stop Time 13:00 Total Visit Minutes 40 Visit Number 7/unlimited PT-OP-B Current Condition Start: 05/10/19 07:25 Freq: Status: Active Protocol: Document 05/10/19 09:42 MB (Rec: 05/10/19 10:05 MB [id number]) Current Condition History of Current Condition Onset Date 2015 first lumbar fusion, 04/04 revision, added L3 Current Complaints LBP and right hip pain History of Current Condition Pt reports arthritis all over. She rates LBP and right posterior hip pain as 5/10 at it's worse. Activity makes pain worse. She is weaning Oxycodone every 8 hours. She is not driving yet. After last back surgery, she started HHPT after surgery. She felt HHPT was helpful. She uses a rolling walker, has a sock aide. She would like to get back to using her cane. 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 She reports right leg weaker than the left. Her has to help her get her right leg into bed. She has a high bed. She wakes up 3x a night to use the BR. She lies side to side and moves on her back. She uses ice pack often. 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 She had bladder and vaginal prolapse. She is having some spotting and is seeing PCP today. She has chronic anemia and her last HGB was 10.0. Pt reports no eye pressure changes. Prior Treatments and Tests PT in the past for balance in 2016. Her balance is much better. She did not like the shuttle balance plate but thinks it was helpful. She had 5 falls after 2016 surgery Pt has had multiple epidural injections and injections for left trochanteric bursitis PT-OP-C Subjective Start: 05/10/19 07:25 Freq: Status: Active Protocol: Document 06/08/19 12:20 MB (Rec: 06/08/19 13:02 MB [id number]) OP-PT Subjective Patient Comments Patient Comments Pt states that doing the step exercise has bothered her left hip. She is going up and down the steps 2-3x/day. PT-OP-J Posture/Palpation/Skin Start: 05/10/19 07:25 Freq: Status: Active Protocol: Document 05/10/19 09:42 MB (Rec: 05/10/19 10:42 MB [id number]) Posture Evaluation Comments Posture Comments Standing: Forward head, rounded shoulder, forward lean , anterior tilt pelvis, curvature lumbar spine with convexity to the right and her surgical scars offset to the right on both sides of her spine. PT-OP-K Range of Motion Start: 05/10/19 07:25 Freq: Status: Active Protocol: Document 05/10/19 09:42 MB (Rec: 05/10/19 10:42 MB [id number]) Hip Goniometric Range of Motion Hip ROM Limitations Comments Passive SLR right 45 deg; left 50 deg Knee Goniometric Range of Motion Knee ROM Limitations Comments Pt lacks full knee extension on the right, 1/2 space between her right knee and the mat. She reports history of right knee surgeries and replacement PT-OP-M Strength Start: 05/10/19 07:25 Freq: Status: Active Protocol: Document 05/10/19 09:42 MB (Rec: 05/10/19 10:42 MB [id number]) Hip Strength Hip Manual Muscle Testing Left Flexion (L2) 4 Good Abduction 3- Fair- Comments Supine Right Flexion (L2) 3+ Fair+ Abduction 3 Fair Comments Supine Knee Strength Knee Manual Muscle Testing Left Flexion (S2) 4 Good Extension (L3) 4 Good Right Flexion (S2) 4 Good Extension (L3) 4 Good Comments Supine Ankle/Foot Strength Ankle and Foot Manual Muscle Testing Left Dorsiflexion (L4) 5 Normal Plantarflexion (S1) 4 Good Right Dorsiflexion (L4) 5 Normal Plantarflexion (S1) 4 Good Comments Supine Toe Strength Toe Manual Muscle Testing Left Great Toe Extension 4 Good Right Great Toe Extension 4 Good PT-OP-Q Treatments Start: 05/10/19 07:25 Freq: Status: Active Protocol: Document 06/08/19 12:20 MB (Rec: 06/08/19 13:02 MB [id number]) Cardio Equipment Recumbent Elliptical (Biodex) Duration (Minutes) 8 Resistance 3 Therapeutic Exercises Standing Exercises Level 1 band hip extension in standing Comments 10 reps standing at rail side stepping Reps/Minutes 4 laps, 10 steps Comments Cues for core engagement, lifting feet PT-OP-T Assessment and Plan Start: 05/10/19 07:25 Freq: Status: Active Protocol: Document 06/08/19 12:20 MB (Rec: 06/08/19 13:02 MB [id number]) Physical Therapy Assessment Rehab Potential Rehabilitation Potential Fair Evaluation Complexity Number of Personal Factors/Comorbidities 3 or More Number of Body Systems Impaired 1-2 Clinical Presentation at Evaluation Evolving Impairments Impairments Activity Tolerance,Balance, Functional Mobility,Gait,Pain, Posture,ROM,Sensation,Soft Tissue Mobility,Strength, Transfers Other Impairments Pt is a 73 y/o female presenting with personal factors of decreased social and physical activity and some decreased safety awareness with fall at home post-op and history of falls. Body systems affected include neurological (B peripheral neuropathy), endocrine (DM2, CKD), musculoskeletal (weakness, fibromyalgia, joint changes right knee and spinal posture and pelvic floor issues per history). Her clinical presentation is evolving and her complexity is moderate. Goals 8 Skilled Nursing Goal (LTG) Pt will deny falls for 2 months by 07/11/19. LTG Duration 8 weeks 7 Assistant Store Director Goal (LTG) Pt will perform 5 reps of sit to stand without UE support in less than 13 sec by 07/11/19. LTG Duration 8 weeks 6 Skilled Nursing Goal (LTG) Pt will present with improved B hip flexion, abduction strength to at least 4/5 by . LTG Duration 8 weeks 5 Skilled Nursing Goal (LTG) Pt will perform progressive HEP including pelvic realignment, core and LE strengthening, flexibility and balance exercises with I by . LTG Duration 8 weeks 4 Skilled Nursing Goal (LTG) Pt will gait train 150' with her cane and mod I by 07/11/19. LTG Duration 8 weeks 3 Skilled Nursing Goal (LTG) Pt will be able to ascend and descend flight of steps with cane and 1 rail with reciprocal gait and mod I by . LTG Duration 8 weeks 2 Assistant Store Director Goal (LTG) Pt will be able to lift B LEs in and out of her high bed with I by 07/11/19. 05/16/19: Goal met LTG Duration 8 weeks 1 Impairment Oswestry LBP scale score reflects 60% impairment Skilled Nursing Goal (LTG) Pt will present with an improved Oswestry LBP scale score to reflect no more than 30% impairment by 07/11/19. LTG Duration 8 weeks Assessment Summary Assessment In addition to above exercises performed, reviewed HEP handouts today and clarified questions. Hip flexor stretch is better when performed with 30 sec. Ed pt to stop step exercise since she is doing the stairs at home. She thinks her HGB is still low. She has been tired. Physical Therapy Plan Frequency and Duration Frequency of Treatment 2x/Week Duration of Treatment 8 weeks Plan of Care Start Date 05/10/19 Plan of Care End Date 07/11/19 Therapeutic Interventions Therapeutic Interventions Aquatic Therapy,Balance Training,Canalithic Repositioning,Coordination Training,Gait Training,Home Exercise Program,Manual Therapy,Neuromuscular Re- education,Patient/Caregiver Education,Self-Care/Home Management,Soft Tissue Mobilization,Taping, Therapeutic Activities, Therapeutic Exercises Modalities Electric Stimulation,Hot Packs ,Ultrasound Next Visit Focus/Plan Next Note Type Treatment Note Next Visit Plan Progress flexibility, core and LE strengthening and balance
--- NOTE | 2019-06-10 12:56 | PT.OTN ---
Current Diagnoses Other spondylosis with radiculopathy, lumbar region (06/10/19) Physical Therapy Treatment Note PT-OP-A Visit Information Start: 05/10/19 07:25 Freq: Status: Active Protocol: Document 06/10/19 12:15 MB (Rec: 06/10/19 12:55 MB [id number]) Out-Patient Physical Therapy Visit Information Visit Information Visit Type Treatment Note Visit Note Medicare, unlimited Visit Start Time 12:15 Visit Stop Time 12:55 Total Visit Minutes 40 Visit Number 8/unlimited PT-OP-B Current Condition Start: 05/10/19 07:25 Freq: Status: Active Protocol: Document 05/10/19 09:42 MB (Rec: 05/10/19 10:05 MB [id number]) Current Condition History of Current Condition Onset Date 2015 first lumbar fusion, 04/04 revision, added L3 Current Complaints LBP and right hip pain History of Current Condition Pt reports arthritis all over. She rates LBP and right posterior hip pain as 5/10 at it's worse. Activity makes pain worse. She is weaning Oxycodone every 8 hours. She is not driving yet. After last back surgery, she started HHPT after surgery. She felt HHPT was helpful. She uses a rolling walker, has a sock aide. She would like to get back to using her cane. 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 She reports right leg weaker than the left. Her has to help her get her right leg into bed. She has a high bed. She wakes up 3x a night to use the BR. She lies side to side and moves on her back. She uses ice pack often. 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 She had bladder and vaginal prolapse. She is having some spotting and is seeing PCP today. She has chronic anemia and her last HGB was 10.0. Pt reports no eye pressure changes. Prior Treatments and Tests PT in the past for balance in 2016. Her balance is much better. She did not like the shuttle balance plate but thinks it was helpful. She had 5 falls after 2016 surgery Pt has had multiple epidural injections and injections for left trochanteric bursitis PT-OP-C Subjective Start: 05/10/19 07:25 Freq: Status: Active Protocol: Document 06/10/19 12:15 MB (Rec: 06/10/19 12:55 MB [id number]) OP-PT Subjective Patient Comments Patient Comments Pt states that she saw Dr. Andrade and x-ray of her spine was good and the hardware looks good. She is still taking her Tramadol at night and will let it run out. She states that her folate is high. Her B12 is mid-range and will start taking her B12 shots every 4 weeks if ordered by PCP. PT-OP-J Posture/Palpation/Skin Start: 05/10/19 07:25 Freq: Status: Active Protocol: Document 05/10/19 09:42 MB (Rec: 05/10/19 10:42 MB [id number]) Posture Evaluation Comments Posture Comments Standing: Forward head, rounded shoulder, forward lean , anterior tilt pelvis, curvature lumbar spine with convexity to the right and her surgical scars offset to the right on both sides of her spine. PT-OP-K Range of Motion Start: 05/10/19 07:25 Freq: Status: Active Protocol: Document 05/10/19 09:42 MB (Rec: 05/10/19 10:42 MB [id number]) Hip Goniometric Range of Motion Hip ROM Limitations Comments Passive SLR right 45 deg; left 50 deg Knee Goniometric Range of Motion Knee ROM Limitations Comments Pt lacks full knee extension on the right, 1/2 space between her right knee and the mat. She reports history of right knee surgeries and replacement PT-OP-M Strength Start: 05/10/19 07:25 Freq: Status: Active Protocol: Document 05/10/19 09:42 MB (Rec: 05/10/19 10:42 MB [id number]) Hip Strength Hip Manual Muscle Testing Left Flexion (L2) 4 Good Abduction 3- Fair- Comments Supine Right Flexion (L2) 3+ Fair+ Abduction 3 Fair Comments Supine Knee Strength Knee Manual Muscle Testing Left Flexion (S2) 4 Good Extension (L3) 4 Good Right Flexion (S2) 4 Good Extension (L3) 4 Good Comments Supine Ankle/Foot Strength Ankle and Foot Manual Muscle Testing Left Dorsiflexion (L4) 5 Normal Plantarflexion (S1) 4 Good Right Dorsiflexion (L4) 5 Normal Plantarflexion (S1) 4 Good Comments Supine Toe Strength Toe Manual Muscle Testing Left Great Toe Extension 4 Good Right Great Toe Extension 4 Good PT-OP-Q Treatments Start: 05/10/19 07:25 Freq: Status: Active Protocol: Document 06/10/19 12:15 MB (Rec: 06/10/19 12:55 MB [id number]) Cardio Equipment Recumbent Elliptical (Biodex) Duration (Minutes) 10 Resistance 4 Therapeutic Exercises Supine Exercises Hip rotator stretch Comments Performed this date, B 20 sec core march Reps/Minutes 2 sets Comments 5 reps performed today trans ab heel slide Reps/Minutes 2 sets Comments 5 reps performed today, ed reciprocal Standing Exercises Romberg with eyes closed and head turns Comments Performed this date and added to HEP, letter a PT-OP-T Assessment and Plan Start: 05/10/19 07:25 Freq: Status: Active Protocol: Document 06/10/19 12:15 MB (Rec: 06/10/19 12:55 MB [id number]) Physical Therapy Assessment Rehab Potential Rehabilitation Potential Fair Evaluation Complexity Number of Personal Factors/Comorbidities 3 or More Number of Body Systems Impaired 1-2 Clinical Presentation at Evaluation Evolving Impairments Impairments Activity Tolerance,Balance, Functional Mobility,Gait,Pain, Posture,ROM,Sensation,Soft Tissue Mobility,Strength, Transfers Other Impairments Pt is a 73 y/o female presenting with personal factors of decreased social and physical activity and some decreased safety awareness with fall at home post-op and history of falls. Body systems affected include neurological (B peripheral neuropathy), endocrine (DM2, CKD), musculoskeletal (weakness, fibromyalgia, joint changes right knee and spinal posture and pelvic floor issues per history). Her clinical presentation is evolving and her complexity is moderate. Goals 8 Human Resources Project Manager Goal (LTG) Pt will deny falls for 2 months by 07/11/19. LTG Duration 8 weeks 7 Fpc Goal (LTG) Pt will perform 5 reps of sit to stand without UE support in less than 13 sec by 07/11/19. LTG Duration 8 weeks 6 Human Resources Project Manager Goal (LTG) Pt will present with improved B hip flexion, abduction strength to at least 4/5 by . LTG Duration 8 weeks 5 Human Resources Project Manager Goal (LTG) Pt will perform progressive HEP including pelvic realignment, core and LE strengthening, flexibility and balance exercises with I by . LTG Duration 8 weeks 4 Fpc Goal (LTG) Pt will gait train 150' with her cane and mod I by 07/11/19. LTG Duration 8 weeks 3 Fpc Goal (LTG) Pt will be able to ascend and descend flight of steps with cane and 1 rail with reciprocal gait and mod I by . LTG Duration 8 weeks 2 Human Resources Project Manager Goal (LTG) Pt will be able to lift B LEs in and out of her high bed with I by 07/11/19. 05/16/19: Goal met LTG Duration 8 weeks 1 Impairment Oswestry LBP scale score reflects 60% impairment Human Resources Project Manager Goal (LTG) Pt will present with an improved Oswestry LBP scale score to reflect no more than 30% impairment by 07/11/19. LTG Duration 8 weeks Assessment Summary Assessment Pt con't to report high folate (96), mid range B12 and lowish HGB at 10. She is concerned about these and is working with providers about it. Con't progression as tolerated. Physical Therapy Plan Frequency and Duration Frequency of Treatment 2x/Week Duration of Treatment 8 weeks Plan of Care Start Date 05/10/19 Plan of Care End Date 07/11/19 Therapeutic Interventions Therapeutic Interventions Aquatic Therapy,Balance Training,Canalithic Repositioning,Coordination Training,Gait Training,Home Exercise Program,Manual Therapy,Neuromuscular Re- education,Patient/Caregiver Education,Self-Care/Home Management,Soft Tissue Mobilization,Taping, Therapeutic Activities, Therapeutic Exercises Modalities Electric Stimulation,Hot Packs ,Ultrasound Next Visit Focus/Plan Next Note Type Treatment Note Next Visit Plan Progress flexibility, core and LE strengthening and balance
--- NOTE | 2019-06-15 10:24 | PT-OP ANOTE ---
Appointment cancelled in setting of inclement weather
--- NOTE | 2019-06-17 12:58 | PT.OTN ---
Current Diagnoses Other spondylosis with radiculopathy, lumbar region (06/17/19) Physical Therapy Treatment Note PT-OP-A Visit Information Start: 05/10/19 07:25 Freq: Status: Active Protocol: Document 06/17/19 12:18 MB (Rec: 06/17/19 12:58 MB [id number]) Out-Patient Physical Therapy Visit Information Visit Information Visit Type Progress Note Visit Note Medicare, unlimited Visit Start Time 12:18 Visit Stop Time 12:58 Total Visit Minutes 40 Visit Number 9/unlimited PT-OP-B Current Condition Start: 05/10/19 07:25 Freq: Status: Active Protocol: Document 05/10/19 09:42 MB (Rec: 05/10/19 10:05 MB [id number]) Current Condition History of Current Condition Onset Date 2015 first lumbar fusion, 04/04 revision, added L3 Current Complaints LBP and right hip pain History of Current Condition Pt reports arthritis all over. She rates LBP and right posterior hip pain as 5/10 at it's worse. Activity makes pain worse. She is weaning Oxycodone every 8 hours. She is not driving yet. After last back surgery, she started HHPT after surgery. She felt HHPT was helpful. She uses a rolling walker, has a sock aide. She would like to get back to using her cane. 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 She reports right leg weaker than the left. Her has to help her get her right leg into bed. She has a high bed. She wakes up 3x a night to use the BR. She lies side to side and moves on her back. She uses ice pack often. 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 She had bladder and vaginal prolapse. She is having some spotting and is seeing PCP today. She has chronic anemia and her last HGB was 10.0. Pt reports no eye pressure changes. Prior Treatments and Tests PT in the past for balance in 2016. Her balance is much better. She did not like the shuttle balance plate but thinks it was helpful. She had 5 falls after 2016 surgery Pt has had multiple epidural injections and injections for left trochanteric bursitis PT-OP-C Subjective Start: 05/10/19 07:25 Freq: Status: Active Protocol: Document 06/17/19 12:18 MB (Rec: 06/17/19 12:58 MB [id number]) OP-PT Subjective Patient Comments Patient Comments Pt states that she hasn't been out much since the snow. She hasn't been sleeping well and has stopped Tramadol 5 days ago. Pt is taking Tylenol. Pt reports an overall 70% improvement in pain since starting PT. She is not thinking about pain all the time. She is doing some social activities like going out with friends. She is not driving yet and it has been snowy. PT-OP-J Posture/Palpation/Skin Start: 05/10/19 07:25 Freq: Status: Active Protocol: Document 05/10/19 09:42 MB (Rec: 05/10/19 10:42 MB [id number]) Posture Evaluation Comments Posture Comments Standing: Forward head, rounded shoulder, forward lean , anterior tilt pelvis, curvature lumbar spine with convexity to the right and her surgical scars offset to the right on both sides of her spine. PT-OP-K Range of Motion Start: 05/10/19 07:25 Freq: Status: Active Protocol: Document 05/10/19 09:42 MB (Rec: 05/10/19 10:42 MB [id number]) Hip Goniometric Range of Motion Hip ROM Limitations Comments Passive SLR right 45 deg; left 50 deg Knee Goniometric Range of Motion Knee ROM Limitations Comments Pt lacks full knee extension on the right, 1/2 space between her right knee and the mat. She reports history of right knee surgeries and replacement PT-OP-M Strength Start: 05/10/19 07:25 Freq: Status: Active Protocol: Document 05/10/19 09:42 MB (Rec: 05/10/19 10:42 MB [id number]) Hip Strength Hip Manual Muscle Testing Left Flexion (L2) 4 Good Abduction 3- Fair- Comments Supine Right Flexion (L2) 3+ Fair+ Abduction 3 Fair Comments Supine Knee Strength Knee Manual Muscle Testing Left Flexion (S2) 4 Good Extension (L3) 4 Good Right Flexion (S2) 4 Good Extension (L3) 4 Good Comments Supine Ankle/Foot Strength Ankle and Foot Manual Muscle Testing Left Dorsiflexion (L4) 5 Normal Plantarflexion (S1) 4 Good Right Dorsiflexion (L4) 5 Normal Plantarflexion (S1) 4 Good Comments Supine Toe Strength Toe Manual Muscle Testing Left Great Toe Extension 4 Good Right Great Toe Extension 4 Good PT-OP-Q Treatments Start: 05/10/19 07:25 Freq: Status: Active Protocol: Document 06/17/19 12:18 MB (Rec: 06/17/19 12:58 MB [id number]) Cardio Equipment Recumbent Elliptical (Biodex) Duration (Minutes) 10 Resistance 4 Gait Training Gait Activity Stair training Comments 1 rail and cane in right hand and pt is able to perform ascend and descend reciprocal gait Small base QC Comments Right hand x5 reps today: 15' x2 and 50'x2, 75' x1 PT-OP-T Assessment and Plan Start: 05/10/19 07:25 Freq: Status: Active Protocol: Document 06/17/19 12:18 MB (Rec: 06/17/19 12:58 MB [id number]) Physical Therapy Assessment Rehab Potential Rehabilitation Potential Fair Evaluation Complexity Number of Personal Factors/Comorbidities 3 or More Number of Body Systems Impaired 1-2 Clinical Presentation at Evaluation Evolving Impairments Impairments Activity Tolerance,Balance, Functional Mobility,Gait,Pain, Posture,ROM,Sensation,Soft Tissue Mobility,Strength, Transfers Other Impairments Pt is a 73 y/o female presenting with personal factors of decreased social and physical activity and some decreased safety awareness with fall at home post-op and history of falls. Body systems affected include neurological (B peripheral neuropathy), endocrine (DM2, CKD), musculoskeletal (weakness, fibromyalgia, joint changes right knee and spinal posture and pelvic floor issues per history). Her clinical presentation is evolving and her complexity is moderate. Goals 8 Instrument Shop Supervisor Goal (LTG) Pt will deny falls for 2 months by 07/11/19. 06/17/2019 Pt has not had fall since 04/09/2019, goal met LTG Duration 8 weeks 7 Instrument Shop Supervisor Goal (LTG) Pt will perform 5 reps of sit to stand without UE support in less than 13 sec by 07/29/2019 . 06/17/2019: Pt can perform 3 reps sit to veterinary x ray operator 15 sec this date LTG Duration 8 weeks 6 Instrument Shop Supervisor Goal (LTG) Pt will present with improved B hip flexion, abduction strength to at least 4/5 by . 06/17/2019: Right hip flexion 5 /5, right hip abduction 3+/5, left hip flexion 4/5, left hip abduction 3-/5 LTG Duration 8 weeks 5 Prison Goal (LTG) Pt will perform progressive HEP including pelvic realignment, core and LE strengthening, flexibility and balance exercises with I by . 06/17/2019: Pt is performing progressive HEP LTG Duration 8 weeks 4 Prison Goal (LTG) Pt will gait train 150' with her cane and mod I by 07/11/19. 06/17/2019: Pt can gait train 150' with her cane LTG Duration 8 weeks 3 Prison Goal (LTG) Pt will be able to ascend and descend flight of steps with cane and 1 rail with reciprocal gait and mod I by . 06/17/2019: Goal met LTG Duration 8 weeks 2 Prison Goal (LTG) Pt will be able to lift B LEs in and out of her high bed with I by 07/11/19. 05/16/19: Goal met LTG Duration 8 weeks 1 Impairment Oswestry LBP scale score reflects 60% impairment Instrument Shop Supervisor Goal (LTG) Pt will present with an improved Oswestry LBP scale score to reflect no more than 30% impairment by 07/29/2019. 06/17/2019: Oswestry LBP scale score reflects 56% impairment. Pt is doing more of the cooking now LTG Duration 8 weeks Assessment Summary Assessment Pt has progressed towards all PT goals since starting PT. These include improvement in pain, improvement in Oswestry LBP scale score, performance of progressive HEP, sit to stands and LE strength. She is weaning off Tramadol that she has been taking for years for fibromyalgia. She is having more trouble sleeping at night since starting it. Physical Therapy Plan Frequency and Duration Frequency of Treatment 2x/Week Duration of Treatment 8 weeks Plan of Care Start Date 06/17/19 Plan of Care End Date 07/29/19 Therapeutic Interventions Therapeutic Interventions Aquatic Therapy,Balance Training,Canalithic Repositioning,Coordination Training,Gait Training,Home Exercise Program,Manual Therapy,Neuromuscular Re- education,Patient/Caregiver Education,Self-Care/Home Management,Soft Tissue Mobilization,Taping, Therapeutic Activities, Therapeutic Exercises Modalities Electric Stimulation,Hot Packs ,Ultrasound Next Visit Focus/Plan Next Note Type Treatment Note Next Visit Plan Progress flexibility, core and LE strengthening and balance. Consider hook lying clam with level 1 band.
--- NOTE | 2019-06-17 12:59 | PT.OPPOC ---
Physical, Occupational & Speech Therapy At [facility] Current Diagnoses Other spondylosis with radiculopathy, lumbar region (06/17/19) Visit Care Team Role Provider Type Radhika Love MD Primary Care Provider Physician Specialty: Family Practice Address: [address] [place] [address], [facility] [place], [address] Email: [email or web address] Ian Andrade MD Attending Provider Physician Specialty: Orthopedic Surgery Address: [address] [place] [address], [phone] Email: [email or web address] Plan Of Care PT-OP-T Assessment and Plan Start: 05/10/19 07:25 Freq: Status: Active Protocol: Document 06/17/19 12:18 MB (Rec: 06/17/19 12:58 MB [id number]) Physical Therapy Assessment Rehab Potential Rehabilitation Potential Fair Evaluation Complexity Number of Personal Factors/Comorbidities 3 or More Number of Body Systems Impaired 1-2 Clinical Presentation at Evaluation Evolving Impairments Impairments Activity Tolerance,Balance, Functional Mobility,Gait,Pain, Posture,ROM,Sensation,Soft Tissue Mobility,Strength, Transfers Other Impairments Pt is a 73 y/o female presenting with personal factors of decreased social and physical activity and some decreased safety awareness with fall at home post-op and history of falls. Body systems affected include neurological (B peripheral neuropathy), endocrine (DM2, CKD), musculoskeletal (weakness, fibromyalgia, joint changes right knee and spinal posture and pelvic floor issues per history). Her clinical presentation is evolving and her complexity is moderate. Goals 8 Half-Way Goal (LTG) Pt will deny falls for 2 months by 07/11/19. 06/17/2019 Pt has not had fall since 04/09/2019, goal met LTG Duration 8 weeks 7 Field Crop Harvest Contractor Goal (LTG) Pt will perform 5 reps of sit to stand without UE support in less than 13 sec by 07/29/2019 . 06/17/2019: Pt can perform 3 reps sit to tax accounting assistant 15 sec this date LTG Duration 8 weeks 6 Field Crop Harvest Contractor Goal (LTG) Pt will present with improved B hip flexion, abduction strength to at least 4/5 by . 06/17/2019: Right hip flexion 5 /5, right hip abduction 3+/5, left hip flexion 4/5, left hip abduction 3-/5 LTG Duration 8 weeks 5 Half-Way Goal (LTG) Pt will perform progressive HEP including pelvic realignment, core and LE strengthening, flexibility and balance exercises with I by . 06/17/2019: Pt is performing progressive HEP LTG Duration 8 weeks 4 Field Crop Harvest Contractor Goal (LTG) Pt will gait train 150' with her cane and mod I by 07/11/19. 06/17/2019: Pt can gait train 150' with her cane LTG Duration 8 weeks 3 Field Crop Harvest Contractor Goal (LTG) Pt will be able to ascend and descend flight of steps with cane and 1 rail with reciprocal gait and mod I by . 06/17/2019: Goal met LTG Duration 8 weeks 2 Field Crop Harvest Contractor Goal (LTG) Pt will be able to lift B LEs in and out of her high bed with I by 07/11/19. 05/16/19: Goal met LTG Duration 8 weeks 1 Impairment Oswestry LBP scale score reflects 60% impairment Field Crop Harvest Contractor Goal (LTG) Pt will present with an improved Oswestry LBP scale score to reflect no more than 30% impairment by 07/29/2019. 06/17/2019: Oswestry LBP scale score reflects 56% impairment. Pt is doing more of the cooking now LTG Duration 8 weeks Assessment Summary Assessment Pt has progressed towards all PT goals since starting PT. These include improvement in pain, improvement in Oswestry LBP scale score, performance of progressive HEP, sit to stands and LE strength. She is weaning off Tramadol that she has been taking for years for fibromyalgia. She is having more trouble sleeping at night since starting it. Physical Therapy Plan Frequency and Duration Frequency of Treatment 2x/Week Duration of Treatment 8 weeks Plan of Care Start Date 06/17/19 Plan of Care End Date 07/29/19 Therapeutic Interventions Therapeutic Interventions Aquatic Therapy,Balance Training,Canalithic Repositioning,Coordination Training,Gait Training,Home Exercise Program,Manual Therapy,Neuromuscular Re- education,Patient/Caregiver Education,Self-Care/Home Management,Soft Tissue Mobilization,Taping, Therapeutic Activities, Therapeutic Exercises Modalities Electric Stimulation,Hot Packs ,Ultrasound Next Visit Focus/Plan Next Note Type Treatment Note Next Visit Plan Progress flexibility, core and LE strengthening and balance. Consider hook lying clam with level 1 band. Plan of Care Dates Plan of Care Start Date 06/17/19 Plan of Care End Date 07/29/19 Electronically Signed by: Amelia Tolbert, PT 06/17/19 1405 Please Sign and Return: I have reviewed this Plan of Care and certify that the skilled therapy services above are required to meet the patient?s needs. Physician Signature Date Printed Name and Credentials Clinical Instructor Signature Printed Name and Credentials
--- NOTE | 2019-06-17 13:59 | PT.OTN ---
Current Diagnoses Other spondylosis with radiculopathy, lumbar region (06/17/19) Physical Therapy Treatment Note PT-OP-A Visit Information Start: 05/10/19 07:25 Freq: Status: Active Protocol: Document 06/17/19 12:18 MB (Rec: 06/17/19 12:58 MB [id number]) Out-Patient Physical Therapy Visit Information Visit Information Visit Type Progress Note Visit Note Medicare, unlimited Visit Start Time 12:18 Visit Stop Time 12:58 Total Visit Minutes 40 Visit Number 9/unlimited PT-OP-B Current Condition Start: 05/10/19 07:25 Freq: Status: Active Protocol: Document 05/10/19 09:42 MB (Rec: 05/10/19 10:05 MB [id number]) Current Condition History of Current Condition Onset Date 2015 first lumbar fusion, 04/04 revision, added L3 Current Complaints LBP and right hip pain History of Current Condition Pt reports arthritis all over. She rates LBP and right posterior hip pain as 5/10 at it's worse. Activity makes pain worse. She is weaning Oxycodone every 8 hours. She is not driving yet. After last back surgery, she started HHPT after surgery. She felt HHPT was helpful. She uses a rolling walker, has a sock aide. She would like to get back to using her cane. 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 She reports right leg weaker than the left. Her has to help her get her right leg into bed. She has a high bed. She wakes up 3x a night to use the BR. She lies side to side and moves on her back. She uses ice pack often. 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 She had bladder and vaginal prolapse. She is having some spotting and is seeing PCP today. She has chronic anemia and her last HGB was 10.0. Pt reports no eye pressure changes. Prior Treatments and Tests PT in the past for balance in 2016. Her balance is much better. She did not like the shuttle balance plate but thinks it was helpful. She had 5 falls after 2016 surgery Pt has had multiple epidural injections and injections for left trochanteric bursitis PT-OP-C Subjective Start: 05/10/19 07:25 Freq: Status: Active Protocol: Document 06/17/19 12:18 MB (Rec: 06/17/19 12:58 MB [id number]) OP-PT Subjective Patient Comments Patient Comments Pt states that she hasn't been out much since the snow. She hasn't been sleeping well and has stopped Tramadol 5 days ago. Pt is taking Tylenol. Pt reports an overall 70% improvement in pain since starting PT. She is not thinking about pain all the time. She is doing some social activities like going out with friends. She is not driving yet and it has been snowy. PT-OP-J Posture/Palpation/Skin Start: 05/10/19 07:25 Freq: Status: Active Protocol: Document 05/10/19 09:42 MB (Rec: 05/10/19 10:42 MB [id number]) Posture Evaluation Comments Posture Comments Standing: Forward head, rounded shoulder, forward lean , anterior tilt pelvis, curvature lumbar spine with convexity to the right and her surgical scars offset to the right on both sides of her spine. PT-OP-K Range of Motion Start: 05/10/19 07:25 Freq: Status: Active Protocol: Document 05/10/19 09:42 MB (Rec: 05/10/19 10:42 MB [id number]) Hip Goniometric Range of Motion Hip ROM Limitations Comments Passive SLR right 45 deg; left 50 deg Knee Goniometric Range of Motion Knee ROM Limitations Comments Pt lacks full knee extension on the right, 1/2 space between her right knee and the mat. She reports history of right knee surgeries and replacement PT-OP-M Strength Start: 05/10/19 07:25 Freq: Status: Active Protocol: Document 05/10/19 09:42 MB (Rec: 05/10/19 10:42 MB [id number]) Hip Strength Hip Manual Muscle Testing Left Flexion (L2) 4 Good Abduction 3- Fair- Comments Supine Right Flexion (L2) 3+ Fair+ Abduction 3 Fair Comments Supine Knee Strength Knee Manual Muscle Testing Left Flexion (S2) 4 Good Extension (L3) 4 Good Right Flexion (S2) 4 Good Extension (L3) 4 Good Comments Supine Ankle/Foot Strength Ankle and Foot Manual Muscle Testing Left Dorsiflexion (L4) 5 Normal Plantarflexion (S1) 4 Good Right Dorsiflexion (L4) 5 Normal Plantarflexion (S1) 4 Good Comments Supine Toe Strength Toe Manual Muscle Testing Left Great Toe Extension 4 Good Right Great Toe Extension 4 Good PT-OP-Q Treatments Start: 05/10/19 07:25 Freq: Status: Active Protocol: Document 06/17/19 12:18 MB (Rec: 06/17/19 12:58 MB [id number]) Cardio Equipment Recumbent Elliptical (Biodex) Duration (Minutes) 10 Resistance 4 Therapeutic Exercises Other Exercises Sit to stands Comments 3 reps in 15 sec and pt reports discomfort in back Gait Training Gait Activity Stair training Comments 1 rail and cane in right hand and pt is able to perform ascend and descend reciprocal gait Small base QC Comments Right hand x5 reps today: 15' x2 and 50'x2, 75' x1 PT-OP-T Assessment and Plan Start: 05/10/19 07:25 Freq: Status: Active Protocol: Document 06/17/19 12:18 MB (Rec: 06/17/19 12:58 MB [id number]) Physical Therapy Assessment Rehab Potential Rehabilitation Potential Fair Evaluation Complexity Number of Personal Factors/Comorbidities 3 or More Number of Body Systems Impaired 1-2 Clinical Presentation at Evaluation Evolving Impairments Impairments Activity Tolerance,Balance, Functional Mobility,Gait,Pain, Posture,ROM,Sensation,Soft Tissue Mobility,Strength, Transfers Other Impairments Pt is a 73 y/o female presenting with personal factors of decreased social and physical activity and some decreased safety awareness with fall at home post-op and history of falls. Body systems affected include neurological (B peripheral neuropathy), endocrine (DM2, CKD), musculoskeletal (weakness, fibromyalgia, joint changes right knee and spinal posture and pelvic floor issues per history). Her clinical presentation is evolving and her complexity is moderate. Goals 8 Usp Goal (LTG) Pt will deny falls for 2 months by 07/11/19. 06/17/2019 Pt has not had fall since 04/09/2019, goal met LTG Duration 8 weeks 7 Line Maintenance Goal (LTG) Pt will perform 5 reps of sit to stand without UE support in less than 13 sec by 07/29/2019 . 06/17/2019: Pt can perform 3 reps sit to gas engine operator generators 15 sec this date LTG Duration 8 weeks 6 Line Maintenance Goal (LTG) Pt will present with improved B hip flexion, abduction strength to at least 4/5 by . 06/17/2019: Right hip flexion 5 /5, right hip abduction 3+/5, left hip flexion 4/5, left hip abduction 3-/5 LTG Duration 8 weeks 5 Line Maintenance Goal (LTG) Pt will perform progressive HEP including pelvic realignment, core and LE strengthening, flexibility and balance exercises with I by . 06/17/2019: Pt is performing progressive HEP LTG Duration 8 weeks 4 Line Maintenance Goal (LTG) Pt will gait train 150' with her cane and mod I by 07/11/19. 06/17/2019: Pt can gait train 150' with her cane LTG Duration 8 weeks 3 Usp Goal (LTG) Pt will be able to ascend and descend flight of steps with cane and 1 rail with reciprocal gait and mod I by . 06/17/2019: Goal met LTG Duration 8 weeks 2 Usp Goal (LTG) Pt will be able to lift B LEs in and out of her high bed with I by 07/11/19. 05/16/19: Goal met LTG Duration 8 weeks 1 Impairment Oswestry LBP scale score reflects 60% impairment Usp Goal (LTG) Pt will present with an improved Oswestry LBP scale score to reflect no more than 30% impairment by 07/29/2019. 06/17/2019: Oswestry LBP scale score reflects 56% impairment. Pt is doing more of the cooking now LTG Duration 8 weeks Assessment Summary Assessment Pt has progressed towards all PT goals since starting PT. These include improvement in pain, improvement in Oswestry LBP scale score, performance of progressive HEP, sit to stands and LE strength. She is weaning off Tramadol that she has been taking for years for fibromyalgia. She is having more trouble sleeping at night since starting it. Physical Therapy Plan Frequency and Duration Frequency of Treatment 2x/Week Duration of Treatment 8 weeks Plan of Care Start Date 06/17/19 Plan of Care End Date 07/29/19 Therapeutic Interventions Therapeutic Interventions Aquatic Therapy,Balance Training,Canalithic Repositioning,Coordination Training,Gait Training,Home Exercise Program,Manual Therapy,Neuromuscular Re- education,Patient/Caregiver Education,Self-Care/Home Management,Soft Tissue Mobilization,Taping, Therapeutic Activities, Therapeutic Exercises Modalities Electric Stimulation,Hot Packs ,Ultrasound Next Visit Focus/Plan Next Note Type Treatment Note Next Visit Plan Progress flexibility, core and LE strengthening and balance. Consider hook lying clam with level 1 band.
--- NOTE | 2019-06-17 14:02 | PT.OPPN ---
Current Diagnoses Other spondylosis with radiculopathy, lumbar region (06/17/19) Physical Therapy Progress Note PT-OP-A Visit Information Start: 05/10/19 07:25 Freq: Status: Active Protocol: Document 06/17/19 12:18 MB (Rec: 06/17/19 12:58 MB [id number]) Out-Patient Physical Therapy Visit Information Visit Information Visit Type Progress Note Visit Note Medicare, unlimited Visit Start Time 12:18 Visit Stop Time 12:58 Total Visit Minutes 40 Visit Number 9/unlimited PT-OP-B Current Condition Start: 05/10/19 07:25 Freq: Status: Active Protocol: Document 05/10/19 09:42 MB (Rec: 05/10/19 10:05 MB [id number]) Current Condition History of Current Condition Onset Date 2015 first lumbar fusion, 04/04 revision, added L3 Current Complaints LBP and right hip pain History of Current Condition Pt reports arthritis all over. She rates LBP and right posterior hip pain as 5/10 at it's worse. Activity makes pain worse. She is weaning Oxycodone every 8 hours. She is not driving yet. After last back surgery, she started HHPT after surgery. She felt HHPT was helpful. She uses a rolling walker, has a sock aide. She would like to get back to using her cane. 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 She reports right leg weaker than the left. Her has to help her get her right leg into bed. She has a high bed. She wakes up 3x a night to use the BR. She lies side to side and moves on her back. She uses ice pack often. 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 She had bladder and vaginal prolapse. She is having some spotting and is seeing PCP today. She has chronic anemia and her last HGB was 10.0. Pt reports no eye pressure changes. Prior Treatments and Tests PT in the past for balance in 2016. Her balance is much better. She did not like the shuttle balance plate but thinks it was helpful. She had 5 falls after 2016 surgery Pt has had multiple epidural injections and injections for left trochanteric bursitis PT-OP-C Subjective Start: 05/10/19 07:25 Freq: Status: Active Protocol: Document 06/17/19 12:18 MB (Rec: 06/17/19 12:58 MB [id number]) OP-PT Subjective Patient Comments Patient Comments Pt states that she hasn't been out much since the snow. She hasn't been sleeping well and has stopped Tramadol 5 days ago. Pt is taking Tylenol. Pt reports an overall 70% improvement in pain since starting PT. She is not thinking about pain all the time. She is doing some social activities like going out with friends. She is not driving yet and it has been snowy. PT-OP-J Posture/Palpation/Skin Start: 05/10/19 07:25 Freq: Status: Active Protocol: Document 05/10/19 09:42 MB (Rec: 05/10/19 10:42 MB [id number]) Posture Evaluation Comments Posture Comments Standing: Forward head, rounded shoulder, forward lean , anterior tilt pelvis, curvature lumbar spine with convexity to the right and her surgical scars offset to the right on both sides of her spine. PT-OP-K Range of Motion Start: 05/10/19 07:25 Freq: Status: Active Protocol: Document 05/10/19 09:42 MB (Rec: 05/10/19 10:42 MB [id number]) Hip Goniometric Range of Motion Hip ROM Limitations Comments Passive SLR right 45 deg; left 50 deg Knee Goniometric Range of Motion Knee ROM Limitations Comments Pt lacks full knee extension on the right, 1/2 space between her right knee and the mat. She reports history of right knee surgeries and replacement PT-OP-M Strength Start: 05/10/19 07:25 Freq: Status: Active Protocol: Document 05/10/19 09:42 MB (Rec: 05/10/19 10:42 MB [id number]) Hip Strength Hip Manual Muscle Testing Left Flexion (L2) 4 Good Abduction 3- Fair- Comments Supine Right Flexion (L2) 3+ Fair+ Abduction 3 Fair Comments Supine Knee Strength Knee Manual Muscle Testing Left Flexion (S2) 4 Good Extension (L3) 4 Good Right Flexion (S2) 4 Good Extension (L3) 4 Good Comments Supine Ankle/Foot Strength Ankle and Foot Manual Muscle Testing Left Dorsiflexion (L4) 5 Normal Plantarflexion (S1) 4 Good Right Dorsiflexion (L4) 5 Normal Plantarflexion (S1) 4 Good Comments Supine Toe Strength Toe Manual Muscle Testing Left Great Toe Extension 4 Good Right Great Toe Extension 4 Good PT-OP-T Assessment and Plan Start: 05/10/19 07:25 Freq: Status: Active Protocol: Document 06/17/19 12:18 MB (Rec: 06/17/19 12:58 MB [id number]) Physical Therapy Assessment Rehab Potential Rehabilitation Potential Fair Evaluation Complexity Number of Personal Factors/Comorbidities 3 or More Number of Body Systems Impaired 1-2 Clinical Presentation at Evaluation Evolving Impairments Impairments Activity Tolerance,Balance, Functional Mobility,Gait,Pain, Posture,ROM,Sensation,Soft Tissue Mobility,Strength, Transfers Other Impairments Pt is a 73 y/o female presenting with personal factors of decreased social and physical activity and some decreased safety awareness with fall at home post-op and history of falls. Body systems affected include neurological (B peripheral neuropathy), endocrine (DM2, CKD), musculoskeletal (weakness, fibromyalgia, joint changes right knee and spinal posture and pelvic floor issues per history). Her clinical presentation is evolving and her complexity is moderate. Goals 8 Psychology Tech Goal (LTG) Pt will deny falls for 2 months by 07/11/19. 06/17/2019 Pt has not had fall since 04/09/2019, goal met LTG Duration 8 weeks 7 Psychology Tech Goal (LTG) Pt will perform 5 reps of sit to stand without UE support in less than 13 sec by 07/29/2019 . 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 06/17/2019: Right hip flexion 5 /5, right hip abduction 3+/5, left hip flexion 4/5, left hip abduction 3-/5 LTG Duration 8 weeks 5 Psychology Tech Goal (LTG) Pt will perform progressive HEP including pelvic realignment, core and LE strengthening, flexibility and balance exercises with I by . 06/17/2019: Pt is performing progressive HEP LTG Duration 8 weeks 4 [facility] Goal (LTG) Pt will gait train 150' with her cane and mod I by 07/11/19. 06/17/2019: Pt can gait train 150' with her cane LTG Duration 8 weeks 3 [facility] Goal (LTG) Pt will be able to ascend and descend flight of steps with cane and 1 rail with reciprocal gait and mod I by . 06/17/2019: Goal met LTG Duration 8 weeks 2 [facility] Goal (LTG) Pt will be able to lift B LEs in and out of her high bed with I by 07/11/19. 05/16/19: Goal met LTG Duration 8 weeks 1 Impairment Oswestry LBP scale score reflects 60% impairment [facility] Goal (LTG) Pt will present with an improved Oswestry LBP scale score to reflect no more than 30% impairment by 07/29/2019. 06/17/2019: Oswestry LBP scale score reflects 56% impairment. Pt is doing more of the cooking now LTG Duration 8 weeks Assessment Summary Assessment Pt has progressed towards all PT goals since starting PT. These include improvement in pain, improvement in Oswestry LBP scale score, performance of progressive HEP, sit to stands and LE strength. She is weaning off Tramadol that she has been taking for years for fibromyalgia. She is having more trouble sleeping at night since starting it. Physical Therapy Plan Frequency and Duration Frequency of Treatment 2x/Week Duration of Treatment 8 weeks Plan of Care Start Date 06/17/19 Plan of Care End Date 07/29/19 Therapeutic Interventions Therapeutic Interventions Aquatic Therapy,Balance Training,Canalithic Repositioning,Coordination Training,Gait Training,Home Exercise Program,Manual Therapy,Neuromuscular Re- education,Patient/Caregiver Education,Self-Care/Home Management,Soft Tissue Mobilization,Taping, Therapeutic Activities, Therapeutic Exercises Modalities Electric Stimulation,Hot Packs ,Ultrasound Next Visit Focus/Plan Next Note Type Treatment Note Next Visit Plan Progress flexibility, core and LE strengthening and balance. Consider hook lying clam with level 1 band.
--- NOTE | 2019-06-21 14:35 | PT.OTN ---
Current Diagnoses Other spondylosis with radiculopathy, lumbar region (06/21/19) Physical Therapy Treatment Note PT-OP-A Visit Information Start: 05/10/19 07:25 Freq: Status: Active Protocol: Document 06/21/19 14:35 SP (Rec: 06/21/19 14:43 SP [id number]) Out-Patient Physical Therapy Visit Information Visit Information Visit Type Treatment Note Visit Start Time 14:35 Visit Stop Time 15:15 Total Visit Minutes 40 Visit Number 10/unlimited Number of CREDIT CONTROL ADMINISTRATOR Visits 1 PT-OP-B Current Condition Start: 05/10/19 07:25 Freq: Status: Active Protocol: Document 05/10/19 09:42 MB (Rec: 05/10/19 10:05 MB [id number]) Current Condition History of Current Condition Onset Date 2015 first lumbar fusion, 04/04 revision, added L3 Current Complaints LBP and right hip pain History of Current Condition Pt reports arthritis all over. She rates LBP and right posterior hip pain as 5/10 at it's worse. Activity makes pain worse. She is weaning Oxycodone every 8 hours. She is not driving yet. After last back surgery, she started HHPT after surgery. She felt HHPT was helpful. She uses a rolling walker, has a sock aide. She would like to get back to using her cane. 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 She reports right leg weaker than the left. Her has to help her get her right leg into bed. She has a high bed. She wakes up 3x a night to use the BR. She lies side to side and moves on her back. She uses ice pack often. 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 She had bladder and vaginal prolapse. She is having some spotting and is seeing PCP today. She has chronic anemia and her last HGB was 10.0. Pt reports no eye pressure changes. Prior Treatments and Tests PT in the past for balance in 2016. Her balance is much better. She did not like the shuttle balance plate but thinks it was helpful. She had 5 falls after 2016 surgery Pt has had multiple epidural injections and injections for left trochanteric bursitis PT-OP-C Subjective Start: 05/10/19 07:25 Freq: Status: Active Protocol: Document 06/21/19 14:35 SP (Rec: 06/21/19 14:43 SP [id number]) OP-PT Subjective Patient Comments Patient Comments Pt stated is not having to take pain meds anymore but taking Tylenol as prescribed to assist but unsure if helps. PT-OP-J Posture/Palpation/Skin Start: 05/10/19 07:25 Freq: Status: Active Protocol: Document 05/10/19 09:42 MB (Rec: 05/10/19 10:42 MB [id number]) Posture Evaluation Comments Posture Comments Standing: Forward head, rounded shoulder, forward lean , anterior tilt pelvis, curvature lumbar spine with convexity to the right and her surgical scars offset to the right on both sides of her spine. PT-OP-K Range of Motion Start: 05/10/19 07:25 Freq: Status: Active Protocol: Document 05/10/19 09:42 MB (Rec: 05/10/19 10:42 MB [id number]) Hip Goniometric Range of Motion Hip ROM Limitations Comments Passive SLR right 45 deg; left 50 deg Knee Goniometric Range of Motion Knee ROM Limitations Comments Pt lacks full knee extension on the right, 1/2 space between her right knee and the mat. She reports history of right knee surgeries and replacement PT-OP-M Strength Start: 05/10/19 07:25 Freq: Status: Active Protocol: Document 05/10/19 09:42 MB (Rec: 05/10/19 10:42 MB [id number]) Hip Strength Hip Manual Muscle Testing Left Flexion (L2) 4 Good Abduction 3- Fair- Comments Supine Right Flexion (L2) 3+ Fair+ Abduction 3 Fair Comments Supine Knee Strength Knee Manual Muscle Testing Left Flexion (S2) 4 Good Extension (L3) 4 Good Right Flexion (S2) 4 Good Extension (L3) 4 Good Comments Supine Ankle/Foot Strength Ankle and Foot Manual Muscle Testing Left Dorsiflexion (L4) 5 Normal Plantarflexion (S1) 4 Good Right Dorsiflexion (L4) 5 Normal Plantarflexion (S1) 4 Good Comments Supine Toe Strength Toe Manual Muscle Testing Left Great Toe Extension 4 Good Right Great Toe Extension 4 Good PT-OP-Q Treatments Start: 05/10/19 07:25 Freq: Status: Active Protocol: Document 06/21/19 14:35 SP (Rec: 06/21/19 15:47 SP [id number]) Cardio Equipment Recumbent Elliptical (Biodex) Duration (Minutes) 10 Resistance 5 Seat Position 8 Gym Equipment Shuttle Balance WBOS, NBOS, stagger Details hands hover rail and Reps/Duration 20-30 (worked on) Comments cued COG over BLE (mostly R) Therapeutic Exercises Supine Exercises clamshell Supine Exercise Name hooklying Resistance TB #1 Reps/Minutes 3x10 core march Supine Exercise Name alternate BLE, DL lift Reps/Minutes 2x10, 2x5 Comments Cued PPT Standing Exercises Romberg with eyes closed and head turns Standing Exercise Name foot together, stagger stance Equipment Used at side of table contact as needed Comments head turns, EC- cued COG bwtn BLE (noted more RLE) PT-OP-T Assessment and Plan Start: 05/10/19 07:25 Freq: Status: Active Protocol: Document 06/21/19 14:35 SP (Rec: 06/21/19 15:47 SP [id number]) Physical Therapy Assessment Goals 8 Correction Goal (LTG) Pt will deny falls for 2 months by 07/11/19. 06/17/2019 Pt has not had fall since 04/09/2019, goal met LTG Duration 8 weeks 7 Correction Goal (LTG) Pt will perform 5 reps of sit to stand without UE support in less than 13 sec by 07/29/2019 . 06/17/2019: Pt can perform 3 reps sit to engine setter 15 sec this date LTG Duration 8 weeks 6 Tool Liaison Goal (LTG) Pt will present with improved B hip flexion, abduction strength to at least 4/5 by . 06/17/2019: Right hip flexion 5 /5, right hip abduction 3+/5, left hip flexion 4/5, left hip abduction 3-/5 LTG Duration 8 weeks 5 Correction Goal (LTG) Pt will perform progressive HEP including pelvic realignment, core and LE strengthening, flexibility and balance exercises with I by . 06/17/2019: Pt is performing progressive HEP LTG Duration 8 weeks 4 Correction Goal (LTG) Pt will gait train 150' with her cane and mod I by 07/11/19. 06/17/2019: Pt can gait train 150' with her cane LTG Duration 8 weeks 3 Tool Liaison Goal (LTG) Pt will be able to ascend and descend flight of steps with cane and 1 rail with reciprocal gait and mod I by . 06/17/2019: Goal met LTG Duration 8 weeks 2 Tool Liaison Goal (LTG) Pt will be able to lift B LEs in and out of her high bed with I by 07/11/19. 05/16/19: Goal met LTG Duration 8 weeks 1 Impairment Oswestry LBP scale score reflects 60% impairment Tool Liaison Goal (LTG) Pt will present with an improved Oswestry LBP scale score to reflect no more than 30% impairment by 07/29/2019. 06/17/2019: Oswestry LBP scale score reflects 56% impairment. Pt is doing more of the cooking now LTG Duration 8 weeks Assessment Summary Assessment Pt was ableto NBOS stand at side of table feet together with no contact, intermittent stagger stance, compliant in corner HEP. Added hooklying clam with cuing for PPT (lower ribcage toward table) with slow transition control alternate BLE to decrease LS arch and pelvis lift, improved . Pt was able to tolerate shuttle balance same WBOS initially then NBOS together with and without head turns and stagger. Cued even BLE wt distribution to impove balance . Pt stated little looser than when arrived. Physical Therapy Plan Frequency and Duration Frequency of Treatment 2x/Week Duration of Treatment 8 weeks Plan of Care Start Date 06/17/19 Plan of Care End Date 07/29/19 Therapeutic Interventions Therapeutic Interventions Aquatic Therapy,Balance Training,Canalithic Repositioning,Coordination Training,Gait Training,Home Exercise Program,Manual Therapy,Neuromuscular Re- education,Patient/Caregiver Education,Self-Care/Home Management,Soft Tissue Mobilization,Taping, Therapeutic Activities, Therapeutic Exercises Modalities Electric Stimulation,Hot Packs ,Ultrasound Next Visit Focus/Plan Next Note Type Treatment Note Next Visit Plan Assess response to added hooklying clamshell and standing NBOS and shuttle balance. Progress flexibility, core and LE strengthening and balance.
--- NOTE | 2019-06-28 16:46 | PT.OTN ---
Current Diagnoses Other spondylosis with radiculopathy, lumbar region (06/28/19) Physical Therapy Treatment Note PT-OP-A Visit Information Start: 05/10/19 07:25 Freq: Status: Active Protocol: Document 06/28/19 16:02 MB (Rec: 06/28/19 16:46 MB [id number]) Out-Patient Physical Therapy Visit Information Visit Information Visit Type Treatment Note Visit Note Medicare, unlimited Visit Start Time 16:02 Visit Stop Time 16:42 Total Visit Minutes 40 Visit Number 2/10 unlimited Number of WEIGHMASTER LEAD Visits 1 PT-OP-B Current Condition Start: 05/10/19 07:25 Freq: Status: Active Protocol: Document 05/10/19 09:42 MB (Rec: 05/10/19 10:05 MB [id number]) Current Condition History of Current Condition Onset Date 2015 first lumbar fusion, 04/04 revision, added L3 Current Complaints LBP and right hip pain History of Current Condition Pt reports arthritis all over. She rates LBP and right posterior hip pain as 5/10 at it's worse. Activity makes pain worse. She is weaning Oxycodone every 8 hours. She is not driving yet. After last back surgery, she started HHPT after surgery. She felt HHPT was helpful. She uses a rolling walker, has a sock aide. She would like to get back to using her cane. 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 She reports right leg weaker than the left. Her has to help her get her right leg into bed. She has a high bed. She wakes up 3x a night to use the BR. She lies side to side and moves on her back. She uses ice pack often. 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 She had bladder and vaginal prolapse. She is having some spotting and is seeing PCP today. She has chronic anemia and her last HGB was 10.0. Pt reports no eye pressure changes. Prior Treatments and Tests PT in the past for balance in 2016. Her balance is much better. She did not like the shuttle balance plate but thinks it was helpful. She had 5 falls after 2016 surgery Pt has had multiple epidural injections and injections for left trochanteric bursitis PT-OP-C Subjective Start: 05/10/19 07:25 Freq: Status: Active Protocol: Document 06/28/19 16:02 MB (Rec: 06/28/19 16:46 MB [id number]) OP-PT Subjective Patient Comments Patient Comments Pt states that she was doing well until she got a UTI over the weekend. She didn't have increased back pain but still has left SI area pain. PT-OP-J Posture/Palpation/Skin Start: 05/10/19 07:25 Freq: Status: Active Protocol: Document 05/10/19 09:42 MB (Rec: 05/10/19 10:42 MB [id number]) Posture Evaluation Comments Posture Comments Standing: Forward head, rounded shoulder, forward lean , anterior tilt pelvis, curvature lumbar spine with convexity to the right and her surgical scars offset to the right on both sides of her spine. PT-OP-K Range of Motion Start: 05/10/19 07:25 Freq: Status: Active Protocol: Document 05/10/19 09:42 MB (Rec: 05/10/19 10:42 MB [id number]) Hip Goniometric Range of Motion Hip ROM Limitations Comments Passive SLR right 45 deg; left 50 deg Knee Goniometric Range of Motion Knee ROM Limitations Comments Pt lacks full knee extension on the right, 1/2 space between her right knee and the mat. She reports history of right knee surgeries and replacement PT-OP-M Strength Start: 05/10/19 07:25 Freq: Status: Active Protocol: Document 05/10/19 09:42 MB (Rec: 05/10/19 10:42 MB [id number]) Hip Strength Hip Manual Muscle Testing Left Flexion (L2) 4 Good Abduction 3- Fair- Comments Supine Right Flexion (L2) 3+ Fair+ Abduction 3 Fair Comments Supine Knee Strength Knee Manual Muscle Testing Left Flexion (S2) 4 Good Extension (L3) 4 Good Right Flexion (S2) 4 Good Extension (L3) 4 Good Comments Supine Ankle/Foot Strength Ankle and Foot Manual Muscle Testing Left Dorsiflexion (L4) 5 Normal Plantarflexion (S1) 4 Good Right Dorsiflexion (L4) 5 Normal Plantarflexion (S1) 4 Good Comments Supine Toe Strength Toe Manual Muscle Testing Left Great Toe Extension 4 Good Right Great Toe Extension 4 Good PT-OP-Q Treatments Start: 05/10/19 07:25 Freq: Status: Active Protocol: Document 06/28/19 16:02 MB (Rec: 06/28/19 16:46 MB [id number]) Cardio Equipment Recumbent Elliptical (Biodex) Duration (Minutes) 10 Resistance 5 Therapeutic Exercises Supine Exercises Hamstring stretch in hook lying, knees bent Comments 2 reps B 30 sec, added to HEP clamshell Reps/Minutes 2x10 Comments Level 1 band Standing Exercises STM with racquet ball against wall Comments Performed B glutes this date Manual Therapy Treatment Manual Techniques MWM Comments MWM for left SI joint and pt standing and performing active B SB, manual asst for pelvic realignment isometric PT-OP-T Assessment and Plan Start: 05/10/19 07:25 Freq: Status: Active Protocol: Document 06/28/19 16:02 MB (Rec: 06/28/19 16:46 MB [id number]) Physical Therapy Assessment Rehab Potential Rehabilitation Potential Fair Evaluation Complexity Number of Personal Factors/Comorbidities 3 or More Number of Body Systems Impaired 1-2 Clinical Presentation at Evaluation Evolving Impairments Impairments Activity Tolerance,Balance, Functional Mobility,Gait,Pain, Posture,ROM,Sensation,Soft Tissue Mobility,Strength, Transfers Other Impairments Pt is a 73 y/o female presenting with personal factors of decreased social and physical activity and some decreased safety awareness with fall at home post-op and history of falls. Body systems affected include neurological (B peripheral neuropathy), endocrine (DM2, CKD), musculoskeletal (weakness, fibromyalgia, joint changes right knee and spinal posture and pelvic floor issues per history). Her clinical presentation is evolving and her complexity is moderate. Goals 8 Longterm Goal (LTG) Pt will deny falls for 2 months by 07/11/19. 06/17/2019 Pt has not had fall since 04/09/2019, goal met LTG Duration 8 weeks 7 Longterm Goal (LTG) Pt will perform 5 reps of sit to stand without UE support in less than 13 sec by 07/29/2019 . 06/17/2019: Pt can perform 3 reps sit to product development engineer 15 sec this date LTG Duration 8 weeks 6 Longterm Goal (LTG) Pt will present with improved B hip flexion, abduction strength to at least 4/5 by . 06/17/2019: Right hip flexion 5 /5, right hip abduction 3+/5, left hip flexion 4/5, left hip abduction 3-/5 LTG Duration 8 weeks 5 Health Information Technologist Goal (LTG) Pt will perform progressive HEP including pelvic realignment, core and LE strengthening, flexibility and balance exercises with I by . 06/17/2019: Pt is performing progressive HEP LTG Duration 8 weeks 4 Longterm Goal (LTG) Pt will gait train 150' with her cane and mod I by 07/11/19. 06/17/2019: Pt can gait train 150' with her cane LTG Duration 8 weeks 3 Longterm Goal (LTG) Pt will be able to ascend and descend flight of steps with cane and 1 rail with reciprocal gait and mod I by . 06/17/2019: Goal met LTG Duration 8 weeks 2 Longterm Goal (LTG) Pt will be able to lift B LEs in and out of her high bed with I by 07/11/19. 05/16/19: Goal met LTG Duration 8 weeks 1 Impairment Oswestry LBP scale score reflects 60% impairment Longterm Goal (LTG) Pt will present with an improved Oswestry LBP scale score to reflect no more than 30% impairment by 07/29/2019. 06/17/2019: Oswestry LBP scale score reflects 56% impairment. Pt is doing more of the cooking now LTG Duration 8 weeks Assessment Summary Assessment Reviewed hook lying clam with level 1 band. Con't progression as appropriate. Physical Therapy Plan Frequency and Duration Frequency of Treatment 2x/Week Duration of Treatment 8 weeks Plan of Care Start Date 06/17/19 Plan of Care End Date 07/29/19 Therapeutic Interventions Therapeutic Interventions Aquatic Therapy,Balance Training,Canalithic Repositioning,Coordination Training,Gait Training,Home Exercise Program,Manual Therapy,Neuromuscular Re- education,Patient/Caregiver Education,Self-Care/Home Management,Soft Tissue Mobilization,Taping, Therapeutic Activities, Therapeutic Exercises Modalities Electric Stimulation,Hot Packs ,Ultrasound Next Visit Focus/Plan Next Note Type Treatment Note Next Visit Plan Progress flexibility, core and LE strengthening and balance.
--- NOTE | 2019-07-05 13:45 | PT.OTN ---
Current Diagnoses Other spondylosis with radiculopathy, lumbar region (07/05/19) Physical Therapy Treatment Note PT-OP-A Visit Information Start: 05/10/19 07:25 Freq: Status: Active Protocol: Document 07/05/19 13:00 SP (Rec: 07/05/19 13:46 SP [id number]) Out-Patient Physical Therapy Visit Information Visit Information Visit Type Treatment Note Visit Note Medicare, unlimited Visit Start Time 13:00 Visit Stop Time 13:45 Total Visit Minutes 45 Visit Number 2/10 unlimited Number of COLLISION REPAIR TECHNICIAN Visits 1 PT-OP-B Current Condition Start: 05/10/19 07:25 Freq: Status: Active Protocol: Document 05/10/19 09:42 MB (Rec: 05/10/19 10:05 MB [id number]) Current Condition History of Current Condition Onset Date 2015 first lumbar fusion, 04/04 revision, added L3 Current Complaints LBP and right hip pain History of Current Condition Pt reports arthritis all over. She rates LBP and right posterior hip pain as 5/10 at it's worse. Activity makes pain worse. She is weaning Oxycodone every 8 hours. She is not driving yet. After last back surgery, she started HHPT after surgery. She felt HHPT was helpful. She uses a rolling walker, has a sock aide. She would like to get back to using her cane. 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 She reports right leg weaker than the left. Her has to help her get her right leg into bed. She has a high bed. She wakes up 3x a night to use the BR. She lies side to side and moves on her back. She uses ice pack often. 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 She had bladder and vaginal prolapse. She is having some spotting and is seeing PCP today. She has chronic anemia and her last HGB was 10.0. Pt reports no eye pressure changes. Prior Treatments and Tests PT in the past for balance in 2016. Her balance is much better. She did not like the shuttle balance plate but thinks it was helpful. She had 5 falls after 2016 surgery Pt has had multiple epidural injections and injections for left trochanteric bursitis PT-OP-C Subjective Start: 05/10/19 07:25 Freq: Status: Active Protocol: Document 07/05/19 13:00 SP (Rec: 07/05/19 13:46 SP [id number]) OP-PT Subjective Patient Comments Patient Comments Pt reported little more LBP today. Pt stated is currently having bathroom renovations completed so can have a double shower with bench and heated floors to help with abillity to get around better. Pt stated is using her ball at wall and helping, compliant with HEP. PT-OP-J Posture/Palpation/Skin Start: 05/10/19 07:25 Freq: Status: Active Protocol: Document 05/10/19 09:42 MB (Rec: 05/10/19 10:42 MB [id number]) Posture Evaluation Comments Posture Comments Standing: Forward head, rounded shoulder, forward lean , anterior tilt pelvis, curvature lumbar spine with convexity to the right and her surgical scars offset to the right on both sides of her spine. PT-OP-K Range of Motion Start: 05/10/19 07:25 Freq: Status: Active Protocol: Document 05/10/19 09:42 MB (Rec: 05/10/19 10:42 MB [id number]) Hip Goniometric Range of Motion Hip ROM Limitations Comments Passive SLR right 45 deg; left 50 deg Knee Goniometric Range of Motion Knee ROM Limitations Comments Pt lacks full knee extension on the right, 1/2 space between her right knee and the mat. She reports history of right knee surgeries and replacement PT-OP-M Strength Start: 05/10/19 07:25 Freq: Status: Active Protocol: Document 05/10/19 09:42 MB (Rec: 05/10/19 10:42 MB [id number]) Hip Strength Hip Manual Muscle Testing Left Flexion (L2) 4 Good Abduction 3- Fair- Comments Supine Right Flexion (L2) 3+ Fair+ Abduction 3 Fair Comments Supine Knee Strength Knee Manual Muscle Testing Left Flexion (S2) 4 Good Extension (L3) 4 Good Right Flexion (S2) 4 Good Extension (L3) 4 Good Comments Supine Ankle/Foot Strength Ankle and Foot Manual Muscle Testing Left Dorsiflexion (L4) 5 Normal Plantarflexion (S1) 4 Good Right Dorsiflexion (L4) 5 Normal Plantarflexion (S1) 4 Good Comments Supine Toe Strength Toe Manual Muscle Testing Left Great Toe Extension 4 Good Right Great Toe Extension 4 Good PT-OP-Q Treatments Start: 05/10/19 07:25 Freq: Status: Active Protocol: Document 07/05/19 13:00 SP (Rec: 07/05/19 13:46 SP [id number]) Cardio Equipment Recumbent Elliptical (Biodex) Duration (Minutes) 10 Resistance 5 Therapeutic Exercises Supine Exercises clamshell Supine Exercise Name hooklying Resistance TB #1 Reps/Minutes 2x10 Comments Level 1 band Standing Exercises band walk Standing Exercise Name f/b/side R and L Reps/Minutes 10 ft x2 laps each Romberg with eyes closed and head turns Standing Exercise Name foot together, stagger stance Equipment Used at side of table contact as needed Comments head turns, EC- cued COG bwtn BLE (noted more RLE) side stepping Resistance TB #1 Reps/Minutes 4 laps, 10 steps Comments Cues for core engagement, lifting feet step tap Standing Exercise Name lateral Side left Resistance 3# leg wt Equipment Used 4 step Reps/Minutes 2x10 Calf stretches in standing Equipment Used rail Reps/Minutes 30x 2 BLE Comments Performed today and added to HEP PT-OP-T Assessment and Plan Start: 05/10/19 07:25 Freq: Status: Active Protocol: Document 07/05/19 13:00 SP (Rec: 07/05/19 13:46 SP [id number]) Physical Therapy Assessment Goals 8 Assembler [employer] Power Plant Goal (LTG) Pt will deny falls for 2 months by 07/11/19. 06/17/2019 Pt has not had fall since 04/09/2019, goal met LTG Duration 8 weeks 7 Assembler [employer] Goal (LTG) Pt will perform 5 reps of sit to stand without UE support in less than 13 sec by 07/29/2019 . 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 06/17/2019: Right hip flexion 5 /5, right hip abduction 3+/5, left hip flexion 4/5, left hip abduction 3-/5 LTG Duration 8 weeks 5 Fdc Goal (LTG) Pt will perform progressive HEP including pelvic realignment, core and LE strengthening, flexibility and balance exercises with I by . 06/17/2019: Pt is performing progressive HEP LTG Duration 8 weeks 4 As[employer] Goal (LTG) Pt will gait train 150' with her cane and mod I by 07/11/19. 06/17/2019: Pt can gait train 150' with her cane LTG Duration 8 weeks 3 Fdc Goal (LTG) Pt will be able to ascend and descend flight of steps with cane and 1 rail with reciprocal gait and mod I by . 06/17/2019: Goal met LTG Duration 8 weeks 2 Fdc Goal (LTG) Pt will be able to lift B LEs in and out of her high bed with I by 07/11/19. 05/16/19: Goal met LTG Duration 8 weeks 1 Impairment Oswestry LBP scale score reflects 60% impairment Assembler [employer] Goal (LTG) Pt will present with an improved Oswestry LBP scale score to reflect no more than 30% impairment by 07/29/2019. 06/17/2019: Oswestry LBP scale score reflects 56% impairment. Pt is doing more of the cooking now LTG Duration 8 weeks Assessment Summary Assessment Reviewed HEP mostly standing for proper performance. Added lateral step taps 4 step LLE 3# leg wt for strengthening L glut med with quad cane support CG- Min. Pt positive response to tx, no pain muscle tiring. Physical Therapy Plan Frequency and Duration Frequency of Treatment 2x/Week Duration of Treatment 8 weeks Plan of Care Start Date 06/17/19 Plan of Care End Date 07/29/19 Therapeutic Interventions Therapeutic Interventions Aquatic Therapy,Balance Training,Canalithic Repositioning,Coordination Training,Gait Training,Home Exercise Program,Manual Therapy,Neuromuscular Re- education,Patient/Caregiver Education,Self-Care/Home Management,Soft Tissue Mobilization,Taping, Therapeutic Activities, Therapeutic Exercises Modalities Electric Stimulation,Hot Packs ,Ultrasound Next Visit Focus/Plan Next Note Type Treatment Note Next Visit Plan Progress flexibility, core and LE strengthening and balance.
--- NOTE | 2019-07-13 14:28 | PT.OTN ---
Current Diagnoses Other spondylosis with radiculopathy, lumbar region (07/13/19) Physical Therapy Treatment Note PT-OP-A Visit Information Start: 05/10/19 07:25 Freq: Status: Active Protocol: Document 07/13/19 13:47 MB (Rec: 07/13/19 14:27 MB [id number]) Out-Patient Physical Therapy Visit Information Visit Information Visit Type Treatment Note Visit Note Medicare, unlimited Visit Start Time 13:47 Visit Stop Time 14:27 Total Visit Minutes 40 Visit Number 3/10 unlimited Number of DESK CLERK Visits 0 PT-OP-B Current Condition Start: 05/10/19 07:25 Freq: Status: Active Protocol: Document 05/10/19 09:42 MB (Rec: 05/10/19 10:05 MB [id number]) Current Condition History of Current Condition Onset Date 2015 first lumbar fusion, 04/04 revision, added L3 Current Complaints LBP and right hip pain History of Current Condition Pt reports arthritis all over. She rates LBP and right posterior hip pain as 5/10 at it's worse. Activity makes pain worse. She is weaning Oxycodone every 8 hours. She is not driving yet. After last back surgery, she started HHPT after surgery. She felt HHPT was helpful. She uses a rolling walker, has a sock aide. She would like to get back to using her cane. 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 She reports right leg weaker than the left. Her has to help her get her right leg into bed. She has a high bed. She wakes up 3x a night to use the BR. She lies side to side and moves on her back. She uses ice pack often. 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 She had bladder and vaginal prolapse. She is having some spotting and is seeing PCP today. She has chronic anemia and her last HGB was 10.0. Pt reports no eye pressure changes. Prior Treatments and Tests PT in the past for balance in 2016. Her balance is much better. She did not like the shuttle balance plate but thinks it was helpful. She had 5 falls after 2016 surgery Pt has had multiple epidural injections and injections for left trochanteric bursitis PT-OP-C Subjective Start: 05/10/19 07:25 Freq: Status: Active Protocol: Document 07/13/19 13:47 MB (Rec: 07/13/19 14:27 MB [id number]) OP-PT Subjective Patient Comments Patient Comments Pt states that she feels she is doing better. She is still having quite a few nerve sensations in her legs. She had this pre-op. She notices more with activity. Pt reports the in-step of her left foot has been very painful for 3 days. PT-OP-J Posture/Palpation/Skin Start: 05/10/19 07:25 Freq: Status: Active Protocol: Document 05/10/19 09:42 MB (Rec: 05/10/19 10:42 MB [id number]) Posture Evaluation Comments Posture Comments Standing: Forward head, rounded shoulder, forward lean , anterior tilt pelvis, curvature lumbar spine with convexity to the right and her surgical scars offset to the right on both sides of her spine. PT-OP-K Range of Motion Start: 05/10/19 07:25 Freq: Status: Active Protocol: Document 05/10/19 09:42 MB (Rec: 05/10/19 10:42 MB [id number]) Hip Goniometric Range of Motion Hip ROM Limitations Comments Passive SLR right 45 deg; left 50 deg Knee Goniometric Range of Motion Knee ROM Limitations Comments Pt lacks full knee extension on the right, 1/2 space between her right knee and the mat. She reports history of right knee surgeries and replacement PT-OP-M Strength Start: 05/10/19 07:25 Freq: Status: Active Protocol: Document 05/10/19 09:42 MB (Rec: 05/10/19 10:42 MB [id number]) Hip Strength Hip Manual Muscle Testing Left Flexion (L2) 4 Good Abduction 3- Fair- Comments Supine Right Flexion (L2) 3+ Fair+ Abduction 3 Fair Comments Supine Knee Strength Knee Manual Muscle Testing Left Flexion (S2) 4 Good Extension (L3) 4 Good Right Flexion (S2) 4 Good Extension (L3) 4 Good Comments Supine Ankle/Foot Strength Ankle and Foot Manual Muscle Testing Left Dorsiflexion (L4) 5 Normal Plantarflexion (S1) 4 Good Right Dorsiflexion (L4) 5 Normal Plantarflexion (S1) 4 Good Comments Supine Toe Strength Toe Manual Muscle Testing Left Great Toe Extension 4 Good Right Great Toe Extension 4 Good PT-OP-Q Treatments Start: 05/10/19 07:25 Freq: Status: Active Protocol: Document 07/13/19 13:47 MB (Rec: 07/13/19 14:27 MB [id number]) Cardio Equipment Recumbent Elliptical (Biodex) Duration (Minutes) 13 Resistance 4 Therapeutic Exercises Other Exercises Revised HEP: verbalized all stretches and pt performs standing band exercises of hip abduction and extension, forward and backward walking Other Exercise Name Verbal review: pelvic realignment, core, hamstring, hip flexor and calf Comments 5 reps all standing band exercises, also reviewed balance ex PT-OP-T Assessment and Plan Start: 05/10/19 07:25 Freq: Status: Active Protocol: Document 07/13/19 13:47 MB (Rec: 07/13/19 14:27 MB [id number]) Physical Therapy Assessment Rehab Potential Rehabilitation Potential Fair Evaluation Complexity Number of Personal Factors/Comorbidities 3 or More Number of Body Systems Impaired 1-2 Clinical Presentation at Evaluation Evolving Impairments Impairments Activity Tolerance,Balance, Functional Mobility,Gait,Pain, Posture,ROM,Sensation,Soft Tissue Mobility,Strength, Transfers Other Impairments Pt is a 73 y/o female presenting with personal factors of decreased social and physical activity and some decreased safety awareness with fall at home post-op and history of falls. Body systems affected include neurological (B peripheral neuropathy), endocrine (DM2, CKD), musculoskeletal (weakness, fibromyalgia, joint changes right knee and spinal posture and pelvic floor issues per history). Her clinical presentation is evolving and her complexity is moderate. Goals 8 Correction Goal (LTG) Pt will deny falls for 2 months by 07/11/19. 06/17/2019 Pt has not had fall since 04/09/2019, goal met LTG Duration 8 weeks 7 Hoof Trimmer Goal (LTG) Pt will perform 5 reps of sit to stand without UE support in less than 13 sec by 07/29/2019 . 06/17/2019: Pt can perform 3 reps sit to glazier stained glass 15 sec this date LTG Duration 8 weeks 6 Hoof Trimmer Goal (LTG) Pt will present with improved B hip flexion, abduction strength to at least 4/5 by . 06/17/2019: Right hip flexion 5 /5, right hip abduction 3+/5, left hip flexion 4/5, left hip abduction 3-/5 LTG Duration 8 weeks 5 Correction Goal (LTG) Pt will perform progressive HEP including pelvic realignment, core and LE strengthening, flexibility and balance exercises with I by . 06/17/2019: Pt is performing progressive HEP LTG Duration 8 weeks 4 Correction Goal (LTG) Pt will gait train 150' with her cane and mod I by 07/11/19. 06/17/2019: Pt can gait train 150' with her cane LTG Duration 8 weeks 3 Hoof Trimmer Goal (LTG) Pt will be able to ascend and descend flight of steps with cane and 1 rail with reciprocal gait and mod I by . 06/17/2019: Goal met LTG Duration 8 weeks 2 Correction Goal (LTG) Pt will be able to lift B LEs in and out of her high bed with I by 07/11/19. 05/16/19: Goal met LTG Duration 8 weeks 1 Impairment Oswestry LBP scale score reflects 60% impairment Correction Goal (LTG) Pt will present with an improved Oswestry LBP scale score to reflect no more than 30% impairment by 07/29/2019. 06/17/2019: Oswestry LBP scale score reflects 56% impairment. Pt is doing more of the cooking now LTG Duration 8 weeks Assessment Summary Assessment D/cd lateral step exercise d/t foot pain. Added hip extension and abduction with level 1 band, L. Revised HEP and see above. Anticipate d/c PT in two treatments. Pt to con't with HEP and NuStep at d /c. Physical Therapy Plan Frequency and Duration Frequency of Treatment 2x/Week Duration of Treatment 8 weeks Plan of Care Start Date 06/17/19 Plan of Care End Date 07/29/19 Therapeutic Interventions Therapeutic Interventions Aquatic Therapy,Balance Training,Canalithic Repositioning,Coordination Training,Gait Training,Home Exercise Program,Manual Therapy,Neuromuscular Re- education,Patient/Caregiver Education,Self-Care/Home Management,Soft Tissue Mobilization,Taping, Therapeutic Activities, Therapeutic Exercises Modalities Electric Stimulation,Hot Packs ,Ultrasound Next Visit Focus/Plan Next Note Type Treatment Note Next Visit Plan Review HEP, answer questions in preparation for d/c PT at the end of the month
--- NOTE | 2019-07-19 14:30 | PT.OTN ---
Current Diagnoses Other spondylosis with radiculopathy, lumbar region (07/19/19) Physical Therapy Treatment Note PT-OP-A Visit Information Start: 05/10/19 07:25 Freq: Status: Active Protocol: Document 07/19/19 13:45 SP (Rec: 07/19/19 14:34 SP [id number]) Out-Patient Physical Therapy Visit Information Visit Information Visit Type Treatment Note Visit Note Medicare, unlimited Visit Start Time 13:45 Visit Stop Time 14:30 Total Visit Minutes 45 Visit Number 4/ unlimited Number of LADIES ATTENDANT Visits 1 PT-OP-B Current Condition Start: 05/10/19 07:25 Freq: Status: Active Protocol: Document 05/10/19 09:42 MB (Rec: 05/10/19 10:05 MB [id number]) Current Condition History of Current Condition Onset Date 2015 first lumbar fusion, 04/04 revision, added L3 Current Complaints LBP and right hip pain History of Current Condition Pt reports arthritis all over. She rates LBP and right posterior hip pain as 5/10 at it's worse. Activity makes pain worse. She is weaning Oxycodone every 8 hours. She is not driving yet. After last back surgery, she started HHPT after surgery. She felt HHPT was helpful. She uses a rolling walker, has a sock aide. She would like to get back to using her cane. 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 She reports right leg weaker than the left. Her has to help her get her right leg into bed. She has a high bed. She wakes up 3x a night to use the BR. She lies side to side and moves on her back. She uses ice pack often. 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 She had bladder and vaginal prolapse. She is having some spotting and is seeing PCP today. She has chronic anemia and her last HGB was 10.0. Pt reports no eye pressure changes. Prior Treatments and Tests PT in the past for balance in 2016. Her balance is much better. She did not like the shuttle balance plate but thinks it was helpful. She had 5 falls after 2016 surgery Pt has had multiple epidural injections and injections for left trochanteric bursitis PT-OP-C Subjective Start: 05/10/19 07:25 Freq: Status: Active Protocol: Document 07/19/19 13:45 SP (Rec: 07/19/19 14:34 SP [id number]) OP-PT Subjective Patient Comments Patient Comments Pt reported little LBP and has been doing errands nearby town and so have been on feet alot today. PT-OP-J Posture/Palpation/Skin Start: 05/10/19 07:25 Freq: Status: Active Protocol: Document 05/10/19 09:42 MB (Rec: 05/10/19 10:42 MB [id number]) Posture Evaluation Comments Posture Comments Standing: Forward head, rounded shoulder, forward lean , anterior tilt pelvis, curvature lumbar spine with convexity to the right and her surgical scars offset to the right on both sides of her spine. PT-OP-K Range of Motion Start: 05/10/19 07:25 Freq: Status: Active Protocol: Document 05/10/19 09:42 MB (Rec: 05/10/19 10:42 MB [id number]) Hip Goniometric Range of Motion Hip ROM Limitations Comments Passive SLR right 45 deg; left 50 deg Knee Goniometric Range of Motion Knee ROM Limitations Comments Pt lacks full knee extension on the right, 1/2 space between her right knee and the mat. She reports history of right knee surgeries and replacement PT-OP-M Strength Start: 05/10/19 07:25 Freq: Status: Active Protocol: Document 05/10/19 09:42 MB (Rec: 05/10/19 10:42 MB [id number]) Hip Strength Hip Manual Muscle Testing Left Flexion (L2) 4 Good Abduction 3- Fair- Comments Supine Right Flexion (L2) 3+ Fair+ Abduction 3 Fair Comments Supine Knee Strength Knee Manual Muscle Testing Left Flexion (S2) 4 Good Extension (L3) 4 Good Right Flexion (S2) 4 Good Extension (L3) 4 Good Comments Supine Ankle/Foot Strength Ankle and Foot Manual Muscle Testing Left Dorsiflexion (L4) 5 Normal Plantarflexion (S1) 4 Good Right Dorsiflexion (L4) 5 Normal Plantarflexion (S1) 4 Good Comments Supine Toe Strength Toe Manual Muscle Testing Left Great Toe Extension 4 Good Right Great Toe Extension 4 Good PT-OP-Q Treatments Start: 05/10/19 07:25 Freq: Status: Active Protocol: Document 07/19/19 13:45 SP (Rec: 07/19/19 14:34 SP [id number]) Cardio Equipment Recumbent Stepper (Sci-Fit) Duration (Minutes) 6 Resistance 2.0 Seat Position 9 Therapeutic Exercises Supine Exercises Leonel stretch Supine Exercise Name Intiated today HO provided Reps/Minutes 30 x2 Comments cued keep other leg on table Hamstring stretch in hook lying, knees bent Supine Exercise Name HEP review Comments 2 reps B 30 sec clamshell Supine Exercise Name hooklying verbal review Resistance TB #1 Reps/Minutes 2x10 Comments Level 1 band core march Supine Exercise Name alternate BLE Reps/Minutes 2x5 Comments Improved PPT HEP review trans ab heel slide Reps/Minutes 2 sets Comments HEP review Lumbar rotation in hook lying Supine Exercise Name HEP review Comments Lumbar rotation in hook lying to decrease tension Log rolling practice x2 Comments Performed this date and pt meets goal Diaphragmatic breathing Comments Performed in hook lying today Pelvic realignment exercises Reps/Minutes 3 sec x5 each LE Comments review HEP Standing Exercises Romberg with eyes closed and head turns Standing Exercise Name feet together and stagger stance Reps/Minutes 1 min each foot position Comments head turns horiz and vertical PT-OP-T Assessment and Plan Start: 05/10/19 07:25 Freq: Status: Active Protocol: Document 07/19/19 13:45 SP (Rec: 07/19/19 14:34 SP [id number]) Physical Therapy Assessment Goals 8 Half-Way Goal (LTG) Pt will deny falls for 2 months by 07/11/19. 06/17/2019 Pt has not had fall since 04/09/2019, goal met LTG Duration 8 weeks 7 Half-Way Goal (LTG) Pt will perform 5 reps of sit to stand without UE support in less than 13 sec by 07/29/2019 . 06/17/2019: Pt can perform 3 reps sit to internet developer 15 sec this date 07/19/19: Pt can perform 5 reps it to stands in 16 sec. LTG Duration 8 weeks 6 Geology Professor Goal (LTG) Pt will present with improved B hip flexion, abduction strength to at least 4/5 by . 06/17/2019: Right hip flexion 5 /5, right hip abduction 3+/5, left hip flexion 4/5, left hip abduction 3-/5 LTG Duration 8 weeks 5 Geology Professor Goal (LTG) Pt will perform progressive HEP including pelvic realignment, core and LE strengthening, flexibility and balance exercises with I by . 06/17/2019: Pt is performing progressive HEP LTG Duration 8 weeks 4 Geology Professor Goal (LTG) Pt will gait train 150' with her cane and mod I by 07/11/19. 06/17/2019: Pt can gait train 150' with her cane LTG Duration 8 weeks 3 Half-Way Goal (LTG) Pt will be able to ascend and descend flight of steps with cane and 1 rail with reciprocal gait and mod I by . 06/17/2019: Goal met LTG Duration 8 weeks 2 Geology Professor Goal (LTG) Pt will be able to lift B LEs in and out of her high bed with I by 07/11/19. 05/16/19: Goal met LTG Duration 8 weeks 1 Impairment Oswestry LBP scale score reflects 60% impairment Geology Professor Goal (LTG) Pt will present with an improved Oswestry LBP scale score to reflect no more than 30% impairment by 07/29/2019. 06/17/2019: Oswestry LBP scale score reflects 56% impairment. Pt is doing more of the cooking now LTG Duration 8 weeks Assessment Summary Assessment Pt will bring Oswestry back next appt for PT to assess. Tx focused on HEP review supine and standing balance activities with good form demonstrated. Provided HO for leonel fleming for HEP addition. No adverse affects to tx today. PT to consider DC to HEP next tx. Physical Therapy Plan Frequency and Duration Frequency of Treatment 2x/Week Duration of Treatment 8 weeks Plan of Care Start Date 06/17/19 Plan of Care End Date 07/29/19 Therapeutic Interventions Therapeutic Interventions Aquatic Therapy,Balance Training,Canalithic Repositioning,Coordination Training,Gait Training,Home Exercise Program,Manual Therapy,Neuromuscular Re- education,Patient/Caregiver Education,Self-Care/Home Management,Soft Tissue Mobilization,Taping, Therapeutic Activities, Therapeutic Exercises Modalities Electric Stimulation,Hot Packs ,Ultrasound Next Visit Focus/Plan Next Note Type Treatment Note Next Visit Plan Review HEP, answer questions in preparation for d/c PT at the end of the month
--- NOTE | 2019-07-27 13:40 | PT.OTN ---
Current Diagnoses Other spondylosis with radiculopathy, lumbar region (07/27/19) Physical Therapy Treatment Note PT-OP-A Visit Information Start: 05/10/19 07:25 Freq: Status: Active Protocol: Document 07/27/19 13:00 MB (Rec: 07/27/19 13:40 MB [id number]) Out-Patient Physical Therapy Visit Information Visit Information Visit Type Treatment Note Visit Note Medicare, unlimited Visit Start Time 13:00 Visit Stop Time 13:40 Total Visit Minutes 40 Visit Number 5/ unlimited Number of REELING OPERATOR Visits 0 PT-OP-B Current Condition Start: 05/10/19 07:25 Freq: Status: Active Protocol: Document 05/10/19 09:42 MB (Rec: 05/10/19 10:05 MB [id number]) Current Condition History of Current Condition Onset Date 2015 first lumbar fusion, 04/04 revision, added L3 Current Complaints LBP and right hip pain History of Current Condition Pt reports arthritis all over. She rates LBP and right posterior hip pain as 5/10 at it's worse. Activity makes pain worse. She is weaning Oxycodone every 8 hours. She is not driving yet. After last back surgery, she started HHPT after surgery. She felt HHPT was helpful. She uses a rolling walker, has a sock aide. She would like to get back to using her cane. 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 She reports right leg weaker than the left. Her has to help her get her right leg into bed. She has a high bed. She wakes up 3x a night to use the BR. She lies side to side and moves on her back. She uses ice pack often. 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 She had bladder and vaginal prolapse. She is having some spotting and is seeing PCP today. She has chronic anemia and her last HGB was 10.0. Pt reports no eye pressure changes. Prior Treatments and Tests PT in the past for balance in 2016. Her balance is much better. She did not like the shuttle balance plate but thinks it was helpful. She had 5 falls after 2016 surgery Pt has had multiple epidural injections and injections for left trochanteric bursitis PT-OP-C Subjective Start: 05/10/19 07:25 Freq: Status: Active Protocol: Document 07/27/19 13:00 MB (Rec: 07/27/19 13:40 MB [id number]) OP-PT Subjective Patient Comments Patient Comments Pt states that she is feeling better and like she might be ready for d/c. She con't with nerve sensations in her feet that she has had more many years. She does not think it is from her diabetes. She saw her paper carrier and was prescribed Gabapentin 100 mg 1 -3 tablets at night. PT-OP-J Posture/Palpation/Skin Start: 05/10/19 07:25 Freq: Status: Active Protocol: Document 05/10/19 09:42 MB (Rec: 05/10/19 10:42 MB [id number]) Posture Evaluation Comments Posture Comments Standing: Forward head, rounded shoulder, forward lean , anterior tilt pelvis, curvature lumbar spine with convexity to the right and her surgical scars offset to the right on both sides of her spine. PT-OP-K Range of Motion Start: 05/10/19 07:25 Freq: Status: Active Protocol: Document 05/10/19 09:42 MB (Rec: 05/10/19 10:42 MB [id number]) Hip Goniometric Range of Motion Hip ROM Limitations Comments Passive SLR right 45 deg; left 50 deg Knee Goniometric Range of Motion Knee ROM Limitations Comments Pt lacks full knee extension on the right, 1/2 space between her right knee and the mat. She reports history of right knee surgeries and replacement PT-OP-M Strength Start: 05/10/19 07:25 Freq: Status: Active Protocol: Document 05/10/19 09:42 MB (Rec: 05/10/19 10:42 MB [id number]) Hip Strength Hip Manual Muscle Testing Left Flexion (L2) 4 Good Abduction 3- Fair- Comments Supine Right Flexion (L2) 3+ Fair+ Abduction 3 Fair Comments Supine Knee Strength Knee Manual Muscle Testing Left Flexion (S2) 4 Good Extension (L3) 4 Good Right Flexion (S2) 4 Good Extension (L3) 4 Good Comments Supine Ankle/Foot Strength Ankle and Foot Manual Muscle Testing Left Dorsiflexion (L4) 5 Normal Plantarflexion (S1) 4 Good Right Dorsiflexion (L4) 5 Normal Plantarflexion (S1) 4 Good Comments Supine Toe Strength Toe Manual Muscle Testing Left Great Toe Extension 4 Good Right Great Toe Extension 4 Good PT-OP-Q Treatments Start: 05/10/19 07:25 Freq: Status: Active Protocol: Document 07/27/19 13:00 MB (Rec: 07/27/19 13:40 MB [id number]) Cardio Equipment Recumbent Stepper (Sci-Fit) Duration (Minutes) 10 Resistance 3 Therapeutic Exercises Other Exercises Reviewed all of her updated HEP exercises verbally Comments Answered questions, especially about Leonel stretch Manual Therapy Treatment Other Other Manual Treatments LLE: gentle STM vastus lateralis and rectus femoris PT-OP-T Assessment and Plan Start: 05/10/19 07:25 Freq: Status: Active Protocol: Document 07/27/19 13:00 MB (Rec: 07/27/19 13:40 MB [id number]) Physical Therapy Assessment Goals 8 Long-Term Goal (LTG) Pt will deny falls for 2 months by 07/11/19. 07/27/2019 Pt has not had fall since 04/09/2019, goal met LTG Duration 8 weeks 7 Sports Broadcaster Goal (LTG) Pt will perform 5 reps of sit to stand without UE support in less than 13 sec by 07/29/2019 . 07/27/2019: Pt performs 10 reps in 31 sec, she states that she does this at home. 15 reps was in 17 sec LTG Duration 8 weeks 6 Sports Broadcaster Goal (LTG) Pt will present with improved B hip flexion, abduction strength to at least 4/5 by . 07/27/2019: Right hip flexion 5 /5, right hip abduction 4/5, left hip flexion 4/5, left hip abduction 3/5 LTG Duration 8 weeks 5 Sports Broadcaster Goal (LTG) Pt will perform progressive HEP including pelvic realignment, core and LE strengthening, flexibility and balance exercises with I by . 07/27/2019: Pt is performing progressive HEP LTG Duration 8 weeks 4 Long-Term Goal (LTG) Pt will gait train 150' with her cane and mod I by 07/11/19. 06/17/2019: Pt can gait train 150' with her cane LTG Duration 8 weeks 3 Long-Term Goal (LTG) Pt will be able to ascend and descend flight of steps with cane and 1 rail with reciprocal gait and mod I by . 06/17/2019: Goal met LTG Duration 8 weeks 2 Sports Broadcaster Goal (LTG) Pt will be able to lift B LEs in and out of her high bed with I by 07/11/19. 05/16/19: Goal met LTG Duration 8 weeks 1 Impairment Oswestry LBP scale score reflects 60% impairment Long-Term Goal (LTG) Pt will present with an improved Oswestry LBP scale score to reflect no more than 30% impairment by 07/29/2019. 07/27/2019: Oswestry LBP scale score reflects 50% impairment LTG Duration 8 weeks Assessment Summary Assessment Pt has met the following PT goals since starting PT: gait with cane, ability to move her legs in and OOB, stair training, performance of HEP and no falls. She has progressed with leg strength and sit to stands. Pt con't with neuropathic-type symptoms in her feet and this is a barrier to exercise. She has maximized PT potential at this time. Will d/c OPPT. Physical Therapy Plan Next Visit Focus/Plan Next Note Type Discharge Summary
== END 2019-07-28 17:18 | disposition home or self-care (01) ==
LOC: PHYS 13:00
PROVIDERS: PCP Family Medicine; Visit Provider Orthopaedic Surgery Orthopaedic Surgery of the Spine
DX: M47.26 Other spondylosis with radiculopathy, lumbar region (principal)
CPT/HCPCS: 97110; 97112; 97116; 97140; 97162

== ENCOUNTER → 2019-08-02 09:49 | Outpatient (CLI) | payer MEDICARE, OTHER, SELFPAY ==
[2019-04-04 13:53] VITALS: BMI 30.7
--- NOTE | 2019-08-02 | DI.US.S_ITS ---
PROCEDURE: US RENAL COMPLETE INDICATIONS: CKD STAGE 3 TECHNIQUE: Real-time scanning was performed of the kidneys and bladder, with image documentation. COMPARISON: [facility], , RENAL COMPLETE, 08/09/2018, 11:17. FINDINGS: Kidneys: Kidneys are normal in size. Right kidney measures 11.2 cm long; left kidney measures 10.4 cm long. Right renal cortical thickness is 1.1 cm; left renal cortical thickness is 1.3 cm. Renal cortical echotexture is normal. No hydronephrosis or nephrolithiasis. No suspicious solid mass lesions. There are 2 left renal cysts, the largest of which measures measures 2.8 x 3.3 x 2.3 cm. Bladder: Pre-void bladder volume is 158 mL. Post-void residual is 70 mL. Pre-void images demonstrate no intraluminal masses or stones. On pre-void images, neither ureteral jets are noted with color Doppler interrogation. (Of note, ureteral jets may not be detectable in up to 25% of cases due to insufficient differences in specific gravity between ureteral and bladder urine). Miscellaneous: No free pelvic fluid. IMPRESSION: 1. No hydronephrosis or nephrolithiasis. Dictated by: Anita Maki M.D. on 08/02/2019 at 15:25 Approved by: Anita Maki M.D. on 08/02/2019 at 15:30
== END ==
PROVIDERS: PCP Family Medicine; Referring Provider Family Medicine; Visit Provider Internal Medicine
DX: N18.3 Chronic kidney disease, stage 3 (moderate) (principal); N28.1 Cyst of kidney, acquired
CPT/HCPCS: 76770

== ENCOUNTER → 2019-08-09 10:46 | Outpatient (CLI) | payer MEDICARE, OTHER, SELFPAY ==
[2019-04-04 13:53] VITALS: BMI 30.7
[2019-08-09 11:50] LABS: Erythrocyte Sedimentation Rate 52 MM/HR (0-20)
[2019-08-09 12:02] LABS: BUN Creatinine Ratio 29.7 (6-22); Blood Urea Nitrogen 38 mg/dL (7-17); Calcium 10.1 mg/dL (8.4-10.2); Carbon Dioxide 24 mmol/L (22-32); Chloride 106 mmol/L (98-107); Glucose 110 mg/dL (80-110); HEMOLYSIS < 15 (0-50); Potassium 5.2 mmol/L (3.4-5.1); Sodium 139 mmol/L (137-145)
== END ==
PROVIDERS: PCP Family Medicine; Referring Provider Physician Assistant Medical; Visit Provider Physician Assistant Medical
DX: N28.9 Disorder of kidney and ureter, unspecified (principal); R70.0 Elevated erythrocyte sedimentation rate
CPT/HCPCS: 36415; 80048; 85651

== ENCOUNTER → 2020-01-25 11:22 | Outpatient (CLI) | payer MEDICARE, OTHER, SELFPAY ==
[2019-04-04 13:53] VITALS: BMI 30.7
--- NOTE | 2020-01-25 11:44 | DI.MG.S_ITS ---
Patient Name: DAKOTAH MELVIN date: 1945 Sex: F Attending Physician: Ivan Indications: Date: 01/25/2020 11:38 At the request of: FARIHA HOOPER Procedure: MM screening mammo BI BILATERAL DIGITAL SCREENING MAMMOGRAM 3D/2D WITH CAD: 01/25/2020 CLINICAL: Routine screening. Comparison is made to exams dated: 11/30/2018 mammogram, 11/13/2017 mammogram, and 11/06/2016 mammogram - [facility]. There are scattered fibroglandular elements in both breasts. Current study was also evaluated with a Computer Aided Detection (CAD) system. No significant masses, calcifications, or other findings are seen in either breast. There has been no significant interval change. IMPRESSION: NEGATIVE There is no mammographic evidence of malignancy. A 1 year screening mammogram is recommended. This exam was interpreted at Station ID: [id number]. NOTE: For mammograms, a report in lay terms will be sent to the patient. Approximately 15% of breast malignancies will not be visualized mammographically. In the management of a palpable breast mass, a negative mammogram must not discourage biopsy of a clinically suspicious lesion. Electronically Signed By: Shalom roberts/candido:01/25/2020 11:57:13 letter sent: Normal Exam ACR BI-RADS Category 1: Negative [id number]
== END ==
PROVIDERS: PCP Family Medicine; Referring Provider Family Medicine; Visit Provider Family Medicine
DX: Z12.31 Encounter for screening mammogram for malignant neoplasm of breast (principal)
CPT/HCPCS: 77063; 77067

== ENCOUNTER → 2020-05-03 12:06 | Outpatient (CLI) | payer MEDICARE, OTHER, SELFPAY ==
[2019-04-04 13:53] VITALS: BMI 30.7
--- NOTE | 2020-05-03 | DI.US.S_ITS ---
PROCEDURE: US RENAL COMPLETE INDICATIONS: FOLLOW-UP TECHNIQUE: Real-time scanning was performed of the kidneys and bladder, with image documentation. COMPARISON: [facility], RENAL COMPLETE, 08/09/2018, 11:17. [facility], RENAL COMPLETE, 08/02/2019, 10:04. FINDINGS: Kidneys: Kidneys are normal in size. Right kidney measures 10.6 cm long; left kidney measures 11.2 cm long. Right renal cortical thickness is 0.2 cm; left renal cortical thickness is 0.6 cm. Renal cortical echotexture is normal. No hydronephrosis or nephrolithiasis. No suspicious solid mass lesions. On the left, there is a 3 x 3.5 x 2.8 cm cyst inferiorly, which previously measured 2.8 x 3.3 x 2.3 cm. No suspicious features are seen. No abnormal vascularity. Along the anterior aspect of the left kidney, there is a 1 cm cyst also seen. Bladder: Pre-void bladder volume is 154 mL. Post-void residual is 0 mL. Pre-void images demonstrate no intraluminal masses or stones. On pre-void images, neither of the ureteral jets are noted with color Doppler interrogation. (Of note, ureteral jets may not be detectable in up to 25% of cases due to insufficient differences in specific gravity between ureteral and bladder urine). Miscellaneous: No free pelvic fluid. IMPRESSION: Simple appearing left renal cyst inferiorly, which measures slightly larger on the current study than on the prior. However, no suspicious features are seen. An additional 1 cm simple cyst is also seen involving the left ovary. Dictated by: Doug Phipps M.D. on 05/03/2020 at 11:57 Approved by: Doug Phipps M.D. on 05/03/2020 at 11:59
== END ==
PROVIDERS: PCP Family Medicine; Referring Provider Internal Medicine; Visit Provider Internal Medicine
DX: N28.1 Cyst of kidney, acquired (principal); N83.292 Other ovarian cyst, left side
CPT/HCPCS: 76770

== ENCOUNTER → 2020-09-27 11:38 | Outpatient (CLI) | payer MEDICARE, OTHER, SELFPAY ==
[2019-04-04 13:53] VITALS: BMI 30.7
--- NOTE | 2020-09-27 | DI.CT.S_ITS ---
PROCEDURE: CT LUMBAR SPINE WO CON INDICATIONS: Spinal stenosis, lumbar region without neurogenic TECHNIQUE: Noncontrast 3 mm thick sections acquired from the T12 level to the sacrum. Sagittal and coronal reformats were constructed. For radiation dose reduction, the following was used: automated exposure control. COMPARISON: [facility], MR, L-SPINE WITHOUT CONTRAST, 09/17/2015, 14:16. [facility], MR, L-SPINE WITHOUT CONTRAST, 02/09/2014, 15:53. [facility], MR, L-SPINE WITHOUT CONTRAST, 01/09/2012, 10:42. [facility], MR, L-SPINE WITHOUT CONTRAST, 09/09/2007, 11:29. [facility], CT, CT LUMBAR SPINE WO CON, 10/04/2018, 13:12. [facility] [place], CR, XR LUMBAR SPINE 2 OR 3 VIEWS, 09/25/2020, 8:59. [facility] [place], CR, XR LUMBAR SPINE 2 OR 3 VIEWS, 04/12/2020, 11:22. FINDINGS: Image quality: There is artifact associated with the metallic hardware. Bones: No acute vertebral body compression fractures. No suspicious lytic or blastic bony lesions. No pars defects. Postoperative changes are seen, with bilateral pedicle screws at the L3 through S1 levels. The screws appear well placed. Vertical fixation rods are seen. Disc spacers are seen at L3-L4, L4-L5, and L5-S1. Lucency can be seen adjacent to the L3 screws, right worse than left. No addition findings of hardware failure or hardware loosening are seen. There has been removal of portions of the posterior elements. Bone grafting material is noted. There is minimal retrolisthesis seen at L1-L2. There is mild retrolisthesis seen at the L2-L3 level. Mild dextroconvex scoliotic curvature is seen. T12-L1: There is mild loss of disc height seen. Bridging endplate osteophytes are seen. No significant neural foraminal or central canal narrowing can be seen. No significant change from the prior. L1-L2: The disc height is relatively well preserved. Bridging endplate osteophytes are seen. Vacuum disc phenomenon is seen at this level. Moderate disc bulge is seen, which is eccentric to the right. A mild central/right disc protrusion can be seen. Mild bilateral neural foraminal narrowing is seen. Moderate central canal narrowing is seen. There is slight progression compared to 2019. L2-L3: Moderate to severe loss of disc height can be seen on the left side. Endplate irregularity and sclerosis can be seen. Vacuum disc phenomenon is seen at this level. Posteriorly projected endplate osteophytes are seen. At least moderate disc bulge is seen, with a central disc osteophyte protrusion. Moderate facet joint hypertrophy is seen. These imaging findings have progressed compared to the prior study. L3-L4: Mild generalized disc bulge is seen. There is moderate right-sided and no left-sided neural foraminal narrowing. No central canal narrowing is seen. The degrees of narrowing are improved compared to the preoperative CT. L4-L5: Mild generalized disc bulge is seen. No significant neural foraminal or central canal narrowing can be seen. The degree of right-sided neural foraminal narrowing appears improved compared to the prior CT. L5-S1: Umzw-tm-duomidly disc bulge is seen. Posteriorly projected endplate osteophytes are seen. At least moderate facet hypertrophy can be seen. There is moderate right-sided and no significant left-sided neural foraminal narrowing seen. Mild central canal narrowing is seen. When comparison is made with the prior examination, these findings are similar. Soft tissues: No retroperitoneal masses or hematomas. Visualized aorta is normal in caliber. Atherosclerotic calcification is noted. Right upper quadrant postoperative clips are seen. IMPRESSION: Since the prior CT, there is been extension of postoperative change, now involving the L3 level. There is lucency adjacent to the L3 screws, which is consistent with loosening. The degrees of narrowing at L3-L4 and L4-L5 have improved compared to 2019. There has been progression of degenerative change at L2-1 L2 since 2019. Dictated by: Doug Phipps M.D. on 09/27/2020 at 11:33 Approved by: Doug Phipps M.D. on 09/27/2020 at 11:42
== END ==
PROVIDERS: PCP Family Medicine; Referring Provider Orthopaedic Surgery Orthopaedic Surgery of the Spine; Visit Provider Orthopaedic Surgery Orthopaedic Surgery of the Spine
DX: M48.061 Spinal stenosis, lumbar region without neurogenic claudication (principal); M51.36 Other intervertebral disc degeneration, lumbar region
CPT/HCPCS: 72131

== ENCOUNTER → 2020-12-15 11:25 | Outpatient (CLI) | payer MEDICARE, OTHER, SELFPAY ==
[2019-04-04 13:53] VITALS: BMI 30.7
[2020-12-15 13:12] LABS: COVID19 -Nasal RAPID Negative (Negative)
== END ==
PROVIDERS: PCP Family Medicine; Visit Provider Physician Assistant
DX: Z01.812 Encounter for preprocedural laboratory examination (principal); Z20.822 Contact with and (suspected) exposure to COVID-19
CPT/HCPCS: 87635; C9803

== ENCOUNTER 2020-12-18 06:25 | Day surgery (SDC) | payer MEDICARE, OTHER, SELFPAY ==
[2019-04-04 13:53] VITALS: BMI 30.7
[2020-12-18] MEDS: PROPARACAINE 0.5% OPHTH SOL 2 DROPS EYE-OP (07:13)
[2020-12-18 07:15] VITALS: BP 186/85; PULSE 86; RESP 12; TEMP 36.4; O2SAT 100; BMI 31.8
[2020-12-18] MEDS: CATARACT EYE COMPOUND (10 DROPS/SYRINGE) 3 DROPS EYE-OP (07:26)
--- NOTE | 2020-12-18 07:26 | P.OP_ITS ---
Operative Date/Time/Diagnoses Pre-op diagnosis: Nuclear Cataract Left eye Post-op diagnosis: same Procedure & Clinicians Same procedure as scheduled: Yes Surgeon: Javier Naidu Anesthesia Type: MAC +/- and Sedation Operative Notes Procedure in detail: Patient brought to the operating suite. Tetracaine drops placed in the left eye. marking instrument was used to teddy the vertical and horizontal meridians. Patient was prepped and draped in sterile manner. Wire lid speculum was placed in the eye. Marking instrument was used to teddy the 100 degree meridian. Betadine drops were placed on the eye. This was irrigated. Lidocaine jelly was placed on the eye. A paracentesis port was created with a side-port blade. 0.1 mL 1% preservative free lidocaine was injected into the anterior chamber. The anterior chamber was deepened with viscoelastic. 2.6 mm keratome was used to create a temporal clear corneal incision. Cystotome and Utrata forceps were used to create continuous tear capsulorrhexis. Balanced salt solution was used to hydro dissect the nucleus. The phacoemulsification handpiece was inserted and the nucleus was removed using the stop and chop techn ique. The irrigation aspiration handpiece was inserted and the remaining cortex was removed. Anterior chamber was deepened with viscoelastic. An Brewer [id number] intraocular lens with a power of 16.5 was injected into the capsular bag. Irrigation aspiration handpiece was inserted and the remaining viscoelastic was removed. The lens was rotated to the 100 degree meridian. Incision was hydrated with balanced salt solution and found to be leak free with pressure with Weck- Martina sponges. 0.1 mL Vigamox injected anterior chamber. 0.3 mL Kenalog 10 mg was injected subconjunctivally. Lid speculum was removed. The patient left the operating room in excellent condition. Complications: none Post-operative Condition: stable Disposition: same day surgery
--- NOTE | 2020-12-18 07:26 | PM.PREOP ---
Pre-operative Note Interval Note History & Physical reviewed/Exam performed by Physician: Yes Changes to H&P: No
[2020-12-18] MEDS: TRIAMCINOLONE 50 MG/5 ML VIAL INJ (07:52)
[2020-12-18] MEDS: MOXIFLOXACIN INJ 4 MG/0.8 ML VIAL 0.5 MG EYE-OP (07:52)
[2020-12-18] MEDS: PHENYLEPHRINE/LIDOCAINE VIAL (OR) 0.2 ML EYE-OP (07:52)
[2020-12-18] MEDS: LIDOCAINE 2% (GLYDO) 6 ML GEL TOP (07:53)
[2020-12-18] MEDS: CHONDROIDTIN/SOD HYALURONATE 1.05 ML SYRINGE INTRAOCULA (07:53)
[2020-12-18] MEDS: TETRACAINE 0.5% OPHTH DROPS 4 ML 2 DROPS EYE-OP (07:53)
[2020-12-18] MEDS: BALANCED SALT IRRIG SOLN NO.2 500 ML, EPINEPHrine 1 MG IRR (07:54)
[2020-12-18 08:08] VITALS: BP 173/83; PULSE 74; RESP 14; TEMP 36.6; O2SAT 93
[2020-12-18] MEDS: ACETAMINOPHEN 325 MG TABLET PO (08:10)
== END 2020-12-18 08:17 | disposition home or self-care (01) ==
PROVIDERS: PCP Family Medicine; Referring Provider Ophthalmology; Visit Provider Ophthalmology
PROC: (CPT 66984; principal; 2020-12-18 07:45)
DX: H25.12 Age-related nuclear cataract, left eye (principal); N18.2 Chronic kidney disease, stage 2 (mild); E11.9 Type 2 diabetes mellitus without complications; I10 Essential (primary) hypertension; E78.5 Hyperlipidemia, unspecified; M79.7 Fibromyalgia
CPT/HCPCS: 66984; J0171; J2250; J3301; V2787

== ENCOUNTER → 2021-02-18 11:14 | Outpatient (CLI) | payer MEDICARE, OTHER, SELFPAY ==
[2019-04-04 13:53] VITALS: BMI 30.7
--- NOTE | 2021-02-18 | DI.MG.S_ITS ---
BILATERAL DIGITAL SCREENING MAMMOGRAM 3D/2D WITH CAD: 02/18/2021 CLINICAL: Routine screening. Family history of breast cancer. Comparison is made to exams dated: 01/25/2020 mammogram, 11/30/2018 mammogram, and 11/13/2017 mammogram - [facility]. There are scattered fibroglandular elements in both breasts. Current study was also evaluated with a Computer Aided Detection (CAD) system. There is a biopsy clip in the left breast. No significant masses, calcifications, or other findings are seen in either breast. There has been no significant interval change. IMPRESSION: NEGATIVE There is no mammographic evidence of malignancy. A 1 year screening mammogram is recommended. This exam was interpreted at Station ID: [id number]. NOTE: For mammograms, a report in lay terms will be sent to the patient. Approximately 15% of breast malignancies will not be visualized mammographically. In the management of a palpable breast mass, a negative mammogram must not discourage biopsy of a clinically suspicious lesion. Electronically Signed By: Cesar Leyva acr/candido:02/18/2021 12:57:28 letter sent: Normal Exam ACR BI-RADS Category 1: Negative 3341F
== END ==
PROVIDERS: PCP Family Medicine; Referring Provider Family Medicine; Visit Provider Family Medicine
DX: Z12.31 Encounter for screening mammogram for malignant neoplasm of breast (principal); Z80.3 Family history of malignant neoplasm of breast
CPT/HCPCS: 77063; 77067

== ENCOUNTER → 2021-03-04 13:08 | Outpatient (CLI) | payer MEDICARE, OTHER, SELFPAY ==
[2019-04-04 13:53] VITALS: BMI 30.7
[2021-03-04 16:30] LABS: COVID19 -Nasal RAPID Negative (Negative)
== END ==
PROVIDERS: PCP Family Medicine; Visit Provider Nurse Practitioner Family
DX: Z20.822 Contact with and (suspected) exposure to COVID-19 (principal)
CPT/HCPCS: 87635; C9803

== ENCOUNTER 2021-03-05 06:18 | Day surgery (SDC) | payer MEDICARE, OTHER, SELFPAY ==
[2019-04-04 13:53] VITALS: BMI 30.7
[2021-03-05 06:58] VITALS: BP 174/94; PULSE 95; RESP 18; TEMP 36.7; O2SAT 98; BMI 29.7
[2021-03-05] MEDS: PROPARACAINE 0.5% OPHTH SOL 2 DROPS EYE-OP (07:08)
[2021-03-05] MEDS: CATARACT EYE COMPOUND (10 DROPS/SYRINGE) 3 DROPS EYE-OP (07:09)
--- NOTE | 2021-03-05 07:36 | PM.PREOP ---
Pre-operative Note Interval Note History & Physical reviewed/Exam performed by Physician: Yes Changes to H&P: No
--- NOTE | 2021-03-05 07:36 | PM.OP.1 ---
Operative Date/Time/Diagnoses Pre-op diagnosis: Nuclear cataract right eye Procedure & Clinicians Procedure: Cataract Surgery Same procedure as scheduled: Yes Surgeon: Javier Naidu Anesthesia Type: MAC +/- and Sedation Operative Notes Procedure in detail: Patient brought to the operating suite. Tetracaine drops placed in the right eye. Marking instrument was used to teddy the vertical and horizontal meridians. Patient was prepped and draped in sterile manner. Wire lid speculum was placed in the eye. The marking instrument was used to teddy the 100 degree meridian. Betadine drops were placed on the eye. This was irrigated. Lidocaine jelly was placed on the eye. A paracentesis port was created with a side-port blade. 0.1 mL 1% preservative free lidocaine was injected into the anterior chamber. The anterior chamber was deepened with viscoelastic. 2.6 mm keratome was used to create a temporal clear corneal incision. Cystotome and Utrata forceps were used to create continuous tear capsulorrhexis. Balanced salt solution was used to hydro dissect the nucleus. The phacoemulsification handpiece was inserted and the nucleus was removed using the stop and chop technique. The irrigation aspiration handpiece was inserted and the remaining cortex was removed. Anterior chamber was deepened with viscoelastic. An Brewer [id number] intraocular lens with a power of 16.5 was injected into the capsular bag. Irrigation aspiration handpiece was inserted and the remaining viscoelastic was removed. The lens was rotated to the 100 degree meridian. Incision was hydrated with balanced salt solution and found to be leak free with pressure with Weck-Martina sponges. 0.1 mL Vigamox injected anterior chamber. 0.3 mL Kenalog 10 mg was injected subconjunctivally. Lid speculum was removed. The patient left the operating room in excellent condition. Complications: none Post-operative Condition: stable Disposition: same day surgery
[2021-03-05] MEDS: MOXIFLOXACIN INJ 4 MG/0.8 ML VIAL 0.5 MG EYE-OP (07:53)
[2021-03-05] MEDS: HYALURONATE SODIUM 30 MG-10 MG/ML SYRINGES 1 BOX INTRAOCULA (07:53)
[2021-03-05] MEDS: LIDOCAINE 2% (GLYDO) 6 ML GEL TOP (07:53)
[2021-03-05] MEDS: PHENYLEPHRINE/LIDOCAINE VIAL (OR) 0.2 ML EYE-OP (07:53)
[2021-03-05] MEDS: BALANCED SALT IRRIG SOLN NO.2 500 ML, EPINEPHrine 1 MG IRR (07:54)
[2021-03-05] MEDS: TRIAMCINOLONE 50 MG/5 ML VIAL INJ (07:54)
[2021-03-05] MEDS: TETRACAINE 0.5% OPHTH DROPS 4 ML 2 DROPS EYE-OP (07:54)
[2021-03-05 08:09] VITALS: BP 147/75; PULSE 77; RESP 16; TEMP 36.6; O2SAT 96
== END 2021-03-05 08:26 | disposition home or self-care (01) ==
PROVIDERS: PCP Family Medicine; Referring Provider Ophthalmology; Visit Provider Ophthalmology
PROC: (CPT 66984; principal; 2021-03-05 07:45)
DX: H25.11 Age-related nuclear cataract, right eye (principal); K21.9 Gastro-esophageal reflux disease without esophagitis; E11.9 Type 2 diabetes mellitus without complications; M79.7 Fibromyalgia
CPT/HCPCS: 66984; J0171; J2250; J3301; V2787

== ENCOUNTER → 2021-05-23 14:36 | Outpatient (CLI) | payer MEDICARE, OTHER, SELFPAY ==
[2019-04-04 13:53] VITALS: BMI 30.7
--- NOTE | 2021-05-23 14:38 | DI.US.S_ITS ---
PROCEDURE: US RENAL COMPLETE INDICATIONS: Chronic kidney disease, stage 3b TECHNIQUE: Real-time scanning was performed of the kidneys and bladder, with image documentation. COMPARISON: [facility], , RENAL COMPLETE, 05/03/2020, 12:14. FINDINGS: Kidneys: Kidneys are normal in size. Right kidney measures 11.8 cm long; left kidney measures 10.8 cm long. Right renal cortical thickness is 1.3 cm; left renal cortical thickness is 0.9 cm. Renal cortical echotexture is normal. No hydronephrosis or nephrolithiasis. No suspicious solid mass lesions. Bilateral renal cyst, largest of which is on the left measuring up to 3.6 cm. Bladder: Pre-void bladder volume is 305 mL. Post-void residual is 25 mL. Pre-void images demonstrate no intraluminal masses or stones. On pre-void images, neither ureteral jets are noted with color Doppler interrogation. (Of note, ureteral jets may not be detectable in up to 25% of cases due to insufficient differences in specific gravity between ureteral and bladder urine). Miscellaneous: No free pelvic fluid. IMPRESSION: 1. Mild left renal cortical thinning and there are bilateral renal cyst, largest of which is on the left measuring up to 3.6 cm. 2. Mild postvoid residual. Dictated by: Robbin Ortez [facility] Interpreted: Abimael Thomas MD on 05/23/2021 at 15:39 Transcribed by: ALVARADO on 05/23/2021 at 15:40 Approved by: Abimael Thomas M.D. on 05/23/2021 at 16:58
== END ==
PROVIDERS: PCP Family Medicine; Referring Provider Internal Medicine Nephrology; Visit Provider Internal Medicine Nephrology
DX: N18.32 Chronic kidney disease, stage 3b (principal); N28.1 Cyst of kidney, acquired
CPT/HCPCS: 76770

== ENCOUNTER → 2022-02-18 10:21 | Outpatient (CLI) | payer MEDICARE, OTHER, SELFPAY ==
[2022-02-17 08:32] VITALS: BMI 30.7
--- NOTE | 2022-02-18 | DI.RAD.S_ITS ---
PROCEDURE: XR KNEE LT 3V INDICATIONS: LEFT KNEE PAIN TECHNIQUE: 3 views of the knee were acquired. COMPARISON: [facility] [place], CR, XR KNEE ARTHRITIC SERIES RT, 12/21/2019, 16:12. [facility], CR, KNEE 3V RIGHT, 04/07/2013, 9:07. FINDINGS: Bones: No fractures or dislocations. Mild joint space narrowing most pronounced in the medial compartment. Small osteophytes. Suprapatellar calcifications. No suspicious bony lesions. Soft tissues: No joint effusion. No suspicious soft tissue calcifications. Chondrocalcinosis. IMPRESSION: Nbih-gt-lzscxmnz left knee DJD. Dictated by: Andrei Carnes M.D. on 02/18/2022 at 15:30 Approved by: Andrei Carnes M.D. on 02/18/2022 at 15:33
== END ==
PROVIDERS: PCP Family Medicine; Referring Provider Family Medicine; Visit Provider Family Medicine
DX: M25.562 Pain in left knee (principal); M17.12 Unilateral primary osteoarthritis, left knee
CPT/HCPCS: 73562

== ENCOUNTER → 2022-03-04 13:07 | Outpatient (CLI) | payer MEDICARE, OTHER, SELFPAY ==
[2022-02-17 08:32] VITALS: BMI 30.7
--- NOTE | 2022-03-04 | DI.MG.S_ITS ---
BILATERAL DIGITAL SCREENING MAMMOGRAM 3D/2D WITH CAD: 03/04/2022 CLINICAL: Routine screening. Comparison is made to exams dated: 02/18/2021 mammogram, 01/25/2020 mammogram, and 11/30/2018 mammogram - [facility]. There are scattered areas of fibroglandular density in both breasts (category b / 25%-50% glandular tissue). Current study was also evaluated with a Computer Aided Detection (CAD) system. No significant masses, calcifications, or other findings are seen in either breast. There has been no significant interval change. IMPRESSION: NEGATIVE There is no mammographic evidence of malignancy. A 1 year screening mammogram is recommended. Based on the Tyrer Cuzick model (a risk assessment model) the patient's lifetime risk is 2.8% and her 10 year risk is 2.8%. According to the ACR, ACS, and NCCN guidelines, an annual breast MRI exam along with mammogram is recommended if the patient's lifetime risk is 20% or greater. This exam was interpreted at Station ID: [id number]. NOTE: For mammograms, a report in lay terms will be sent to the patient. Approximately 15% of breast malignancies will not be visualized mammographically. In the management of a palpable breast mass, a negative mammogram must not discourage biopsy of a clinically suspicious lesion. Electronically Signed By: John love/candido:03/04/2022 17:03:15 letter sent: Normal Exam ACR BI-RADS Category 1: Negative 3341F
== END ==
PROVIDERS: PCP Family Medicine; Referring Provider Family Medicine; Visit Provider Family Medicine
DX: Z12.31 Encounter for screening mammogram for malignant neoplasm of breast (principal)
CPT/HCPCS: 77063; 77067

== ENCOUNTER → 2022-05-07 14:31 | Outpatient (CLI) | payer MEDICARE, OTHER, SELFPAY ==
[2022-02-17 08:32] VITALS: BMI 30.7
[2022-05-07 16:51] LABS: HEMOLYSIS < 15 (0-50)
== END ==
PROVIDERS: PCP Family Medicine; Referring Provider Internal Medicine Nephrology; Visit Provider Internal Medicine Nephrology
DX: E87.5 Hyperkalemia (principal)
CPT/HCPCS: 36415; 84132

== ENCOUNTER → 2022-05-30 10:01 | Outpatient (CLI) | payer MEDICARE, OTHER, SELFPAY ==
[2022-02-17 08:32] VITALS: BMI 30.7
--- NOTE | 2022-05-30 | DI.CT.S_ITS ---
PROCEDURE: CT LUMBAR SPINE WO CON INDICATIONS: Arthrodesis status TECHNIQUE: Noncontrast 0.8 mm thick sections acquired from the T12 level to the sacrum. Sagittal and coronal reformats were constructed. For radiation dose reduction, the following was used: automated exposure control. COMPARISON: [facility], CT, CT LUMBAR SPINE WO CON, 10/04/2018, 13:12. [facility] [place], CR, XR LUMBAR SPINE 2 OR 3 VIEWS, 09/25/2020, 8:59. [facility] [place], CR, XR LUMBAR SPINE 2 OR 3 VIEWS, 12/12/2021, 14:59. [facility], CT, CT LUMBAR SPINE WO CON, 09/27/2020, 11:44. FINDINGS: Image quality: There is artifact associated with the metallic hardware. Artifact from the metallic hardware is reduced by metal reconstruction algorithm. Bones: No acute vertebral body compression fractures. No suspicious lytic or blastic bony lesions. No pars defects. There is minimal retrolisthesis at the L1-L2 level, with mild retrolisthesis at L2-L3. Extensive fixation hardware can be seen L2 through S1, with bilateral pedicle screws, vertical fixation rods, and disc spacers. The screws appear well placed. As previously demonstrated, there is lucency seen adjacent to the L3 screws on each side, right worse than left. No additional findings of hardware failure or hardware loosening can be seen. There has been removal of portions of the posterior elements. Bone grafting material is noted. T11-T12: Ootr-jw-pkchlahs loss of disc height is seen. Prominent bridging anterior osteophytes are seen. No neural foraminal narrowing or significant central canal narrowing can be seen. T12-L1: The disc height is well preserved. Prominent bridging anterior osteophytes are seen. No neural foraminal narrowing or central canal narrowing can be seen. Stable from the prior study. L1-L2: The disc height is relatively well preserved. Mild generalized disc bulge is seen. Bridging endplate osteophytes are seen. Tuxl-qr-lpzewral bilateral neural foraminal narrowing is seen. Mild to moderate central canal narrowing is seen. When comparison is made with the prior images, these findings are similar. L2-L3: There is moderate to severe loss of disc height. Endplate irregularity and sclerosis can be seen. Vacuum disc phenomenon is seen at this level. Posteriorly projected endplate osteophytes are seen. Moderate to severe bilateral neural foraminal narrowing is seen. Moderate to severe central canal narrowing can be seen at this level. There is progression of degenerative change at this level, with worsening of disc height loss, with progression of endplate irregularity and sclerosis. L3-L4: Mild generalized disc bulge is seen. There is moderate right-sided and no left-sided neural foraminal narrowing. No central canal narrowing is seen. Stable from the prior study. L4-L5: Mild to moderate disc bulge is seen. At least moderate facet hypertrophy is seen at this level. No significant neural foraminal or central canal narrowing can be seen. Stable from the prior study. L5-S1: Divm-nx-obkwozjr disc bulge is seen. At least moderate facet hypertrophy is seen. There is moderate right-sided and no significant left-sided neural foraminal narrowing. Mild central canal narrowing is seen. Stable from the prior study. Soft tissues: No retroperitoneal masses or hematomas. Visualized aorta is normal in caliber. Atherosclerotic calcification is noted. Cholecystectomy clips are seen. Colonic diverticulosis is seen, without findings of active diverticulitis. IMPRESSION: Extensive postoperative hardware can be seen L3 through S1. As previously demonstrated, there is lucency seen adjacent to the L3 screws. The hardware otherwise appears unremarkable. The degenerative change at L2-L3 has progressed compared to 2020. Otherwise, stable degenerative change. Additional findings: Cholecystectomy Diverticulosis, without active diverticulitis Dictated by: Doug Phipps M.D. on 05/30/2022 at 11:38 Approved by: Doug Phipps M.D. on 05/30/2022 at 11:48
== END ==
PROVIDERS: PCP Family Medicine; Referring Provider Orthopaedic Surgery Orthopaedic Surgery of the Spine; Visit Provider Orthopaedic Surgery Orthopaedic Surgery of the Spine
DX: M54.50 Low back pain, unspecified; M47.816 Spondylosis without myelopathy or radiculopathy, lumbar region; K57.90 Diverticulosis of intestine, part unspecified, without perforation or abscess without bleeding; Z98.1 Arthrodesis status; Z90.49 Acquired absence of other specified parts of digestive tract
CPT/HCPCS: 72131

== ENCOUNTER → 2022-06-17 11:25 | Outpatient (CLI) | payer MEDICARE, OTHER, SELFPAY ==
[2022-02-17 08:32] VITALS: BMI 30.7
== END ==
PROVIDERS: PCP Family Medicine; Referring Provider Family Medicine; Visit Provider Family Medicine
DX: Z13.820 Encounter for screening for osteoporosis (principal); M85.832 Other specified disorders of bone density and structure, left forearm; Z78.0 Asymptomatic menopausal state; Z92.23 Personal history of estrogen therapy; Z90.710 Acquired absence of both cervix and uterus
CPT/HCPCS: 77080; 77081

== ENCOUNTER → 2022-06-20 15:39 | Outpatient (CLI) | payer MEDICARE, OTHER, SELFPAY ==
[2022-02-17 08:32] VITALS: BMI 30.7
--- NOTE | 2022-06-20 | DI.MRI.S_ITS ---
PROCEDURE: MR SHOULDER RT WO CON INDICATIONS: Unspecified rotator cuff tear or rupture of right shoulder TECHNIQUE: Noncontrast oblique coronal T2 fast spin echo with fat saturation, oblique sagittal T1 spin echo and T2 fast spin echo with fat saturation, axial T1 spin echo and T2 fast spin echo with fat saturation through the shoulder. COMPARISON: [facility] [place], CR, XR SHOULDER 2+ VIEWS RIGHT, 06/13/2022, 10:40. FINDINGS: Image quality: Some sequences are motion degraded Rotator cuff: Bulk: Mild atrophy of the infraspinatus and supraspinatus. Teres minor: Intact Supraspinatus: Tendinosis. Partial thickness articular sided tear. Additional possible calcific tendinopathy, better seen on radiography. Infraspinatus: Tendinosis. Partial-thickness interstitial tear. Subscapularis: Tendinosis. Interstitial tear. Bones and bursae: GH joint: Kvga-ej-wsaqpyfj degenerative changes without subchondral edema. There is some cartilage loss. AC joint: Moderate to severe degenerative changes, with periarticular ganglion formation and subchondral cysts. Humeral head: Intact Scapula and acromion: Intact Bursa: Mild bursitis Capsule: Labrum: Not well evaluated on this study. There is circumferential labral attenuation and likely chronic tearing, particularly the superior labrum. Long head biceps tendon: Intra-articular tendinosis IGHL: Ganglion cyst is seen adjacent to the IGHL. No significant pericapsular edema. Rotator interval: Preserved fat signal Soft tissues: No axillary adenopathy. Lungs are not well seen. IMPRESSION: Rvgo-ip-cucxatnk glenohumeral and moderate to severe acromioclavicular degenerative changes. There are periarticular ganglion cyst around the AC joint. Mild underlying bursitis. No full-thickness rotator cuff tear, however there is some mild atrophy of the infraspinatus and supraspinatus. Partial thickness multifocal tears and tendinosis as described above. Likely chronic labral attenuation and tears, particularly the superior aspect. Intra-articular biceps long head tendinosis. Dictated by: John Orozco M.D. on 06/20/2022 at 16:49 Approved by: John Orozco M.D. on 06/20/2022 at 16:55
== END ==
PROVIDERS: PCP Family Medicine; Referring Provider Orthopaedic Surgery; Visit Provider Orthopaedic Surgery
DX: M75.101 Unspecified rotator cuff tear or rupture of right shoulder, not specified as traumatic (principal); M67.411 Ganglion, right shoulder; M75.51 Bursitis of right shoulder
CPT/HCPCS: 73221

== ENCOUNTER 2023-01-26 11:18 | Day surgery (SDC) | payer MEDICARE, OTHER, SELFPAY ==
[2022-02-17 08:32] VITALS: BMI 30.7
--- NOTE | 2023-01-26 | PATH_ITS ---
[facility] Accession Number: [id number] No. of containers..02 Tissue . 01 Material submitted: . PART A: colon - HEPATIC FLEXURE PART B: colon - TRANSVERSE POLYP . 01 Diagnosis: A. Hepatic Flexure, Biopsy: Tubular adenoma. . B. Transverse Colon, Polyp: Tubular adenoma. MRV 02/03/2023 1757 Local . 01 Electronically signed: . Meli Gallardo MD, Pathologist NPI- [id number] . 01 Gross description: . Part A: HEPATIC FLEXURE: Received in formalin is multiple fragment(s) of busch, soft tissue measuring 2.5 x 0.6 x 0.2 cm in aggregate submitted entirely in 1 cassette(s) Part B: TRANSVERSE POLYP: Received in formalin is multiple fragment(s) of busch, soft tissue measuring 2.5 x 0.3 x 0.1 cm in aggregate submitted entirely in 1 cassette(s) /AAY 01/27/2023 0256 Local . 01 Pathologist provided ICD-10: D12.3 . 01 CPT . 747900, [id number] Specimen Comment: A courtesy copy of this report has been sent to [phone] Performed at: 01 [facility] [address] [place] [address], [place], [place] [id number] MD Pop Hammer MD Phone: [phone]
[2023-01-26 11:51] VITALS: BMI 27.6
[2023-01-26 12:02] VITALS: BP 183/99; PULSE 108; RESP 16; TEMP 35.9; O2SAT 98
--- NOTE | 2023-01-26 12:06 | PM.HP.1 ---
History of Present Illness History of Present Illness Date Patient Seen: 01/26/23 Time Patient Seen: 12:06 Chief complaint: SDC Narrative: I reviewed my recent office note from September of this year. Patient is here for colonoscopy for polyp surveillance. [facility] Medical History Anemia Arthritis Martinez's esophagus Cardiomyopathy CKD (chronic kidney disease), stage III Colon polyps Constipation DDD (degenerative disc disease) Diabetes Easy bruisability Eczema Elevated cholesterol Fibromyalgia Frequent urinary tract infections GERD (gastroesophageal reflux disease) Gout Heart murmur HTN (hypertension) Hypokinesis Irregular heartbeat Kidney cysts Kidney disease Neuropathy Orbital fracture Osteoarthritis Pain Plantar fasciitis Pneumonia Psoriasis PUD (peptic ulcer disease) Renal insufficiency SCC (squamous cell carcinoma) Sciatica Sinus bradycardia Spinal stenosis Toxic shock syndrome (~1978) Uterine polyp (06/12/01) Surgical History H/O: hysterectomy History of arthroplasty of right knee (~2001) History of colonoscopy History of dilation and curettage History of hysteroscopy (02/15/88) History of surgery (~1987) Hx of arthroscopy of right knee (09/07/85) Hx of bladder repair surgery (03/02/18) Hx of cholecystectomy (04/15/89) Hx of repair of left rotator cuff (~2012) Hx of spinal fusion (12/28/15) Status post total shoulder arthroplasty (~2012) Social History household members: spouse Smoking Status: Never smoker alcohol intake: former Meds Home Medications and Allergies Home Medications Medication Instructions Recorded Confirmed Type CYANOCOBALAMIN (VITAMIN B-12) 1,000 mcg IJ Q 5 WEEKS ##0 10/14/10 01/26/23 History (Cyanocobalamin Injection) esomeprazole magnesium 40 mg 40 mg PO QPM ##0 10/14/10 01/26/23 History capsule,delayed release (Nexium) flaxseed oil 1,000 mg capsule 2,000 mg PO DAILY ##0 10/14/10 01/26/23 History losartan 100 mg tablet (Cozaar) 100 mg PO QDAY ##0 10/14/10 01/26/23 History multivitamin 1 cap PO DAILY ##0 10/14/10 01/26/23 History FERROUS GLUCONATE 325 mg PO SEE INSTRUCTIONS ##90 01/01/16 01/26/23 Rx carvedilol 12.5 mg tablet (Coreg) 12.5 mg PO BID 01/30/19 01/26/23 History magnesium chloride 71.5 mg 71.5 mg PO BID 01/30/19 01/26/23 History (magnesium chloride) tablet,delayed release (Slow-Mag) rosuvastatin 20 mg tablet (Crestor) 20 mg PO DAILY 01/30/19 01/26/23 History allopurinol 100 mg tablet 150 mg PO DAILY 03/16/19 01/26/23 History cholecalciferol (vitamin D3) 50 2,000 unit PO DAILY 04/04/19 01/26/23 History mcg (2,000 unit) capsule (Vitamin D3) acetaminophen 500 mg tablet 500 mg PO Q4H PRN pain (scale 04/07/19 01/26/23 Rx (Tylenol Extra Strength) score 1-3) #60 tabs amlodipine 5 mg tablet 5 mg PO DAILY 12/18/20 01/26/23 History aspirin 81 mg PO DAILY 12/18/20 01/26/23 History celecoxib 100 mg capsule 100 mg PO DAILY 12/18/20 01/26/23 History estradiol 0.01% (0.1 mg/gram) vaginal 12/18/20 History vaginal cream (Estrace) Allergies Allergy/AdvReac Type Severity Reaction Status Date / Time Penicillins [PENICILLINS] Allergy Severe ANAPHYLAXIS Verified 01/26/23 11:43 latex [LATEX] Allergy Mild RASH Verified 01/26/23 11:43 Fish Containing Products AdvReac Severe MY Verified 01/26/23 11:43 KIDNEY'S SHUT DOWN, VOMITING, BLACK URINE hydromorphone [From Dilaudid] AdvReac Severe Confusion Verified 01/26/23 11:43 lactose AdvReac Severe MY Verified 01/26/23 11:43 KIDNEY'S SHUT DOWN, VOMITING, BLACK URINE pantoprazole AdvReac Severe Stomach Verified 01/26/23 11:43 pain, tachycardia atorvastatin AdvReac Intermediate myalgias Verified 01/26/23 11:43 lorazepam [From Ativan] AdvReac Intermediate Very slow Verified 01/26/23 11:43 to wake up in recovery enalapril AdvReac Mild Irregular Verified 01/26/23 11:43 heartbeat-PACs Review of Systems Review of Systems ROS: Yes All systems reviewed with the patient and are negative except as otherwise documented Exam Vital Signs (past 8 hours): - 01/26/23 12:02 Temperature 96.7 F L Pulse Rate 108 H Respiratory Rate 16 Blood Pressure 183/99 H Pulse Oximetry 98 Oxygen Delivery Method Room Air Oxygen Delivery Method Room Air Const General: cooperative HENMT Head: normal to inspection Eyes General: appearance normal, both eyes and all related structures Neck Neck: normal visual inspection Chest Chest: normal inspection of the chest Resp Effort & Inspection: normal respiratory effort Cardio Rate: regular rate GI Inspection: normal to inspection Skin General: no rashes or lesions noted Neuro General: patient alert and patient awake Extrem General: normal to inspection and no pedal edema Psych Appearance: grossly normal Assessment & Plan Assessment & Plan narrative: 77-year-old female with a personal history of colon polyps. Surveillance colonoscopy is pursued today.
[2023-01-26] MEDS: LACTATED RINGERS 1,000 ML 42 ML IV (12:07)
--- NOTE | 2023-01-26 12:07 | PM.PREOP ---
Pre-operative Note Interval Note History & Physical reviewed/Exam performed by Physician: Yes Changes to H&P: No ASA Class (for procedural sedation): III
--- NOTE | 2023-01-26 13:47 | PM.OP.COLON ---
Operative Date/Time/Diagnoses Date of procedure: 01/26/23 Time of procedure: 13:47 Pre-op diagnosis: Personal history of colon polyps Post-op diagnosis: same Procedure & Clinicians Study performed: Colonoscopy with hot snare polypectomy, cold snare polypectomy, and cold forceps polypectomy Same procedure as scheduled: Yes Indications: Personal history of colon polyps Surgeon: Yeison Neves Procedure Notes SCOAP/Timeout: Done Procedure in detail: After the risks and benefits were explained, written and verbal informed consent was obtained. The patient was brought into the procedure room and placed into the left lateral decubitus position. Please see anesthesia note for sedation details. Digital rectal examination was accomplished. The scope was introduced into the patient and advanced under direct visualization to the cecum as identified by the appendiceal orifice and ileocecal valve. The scope was slowly withdrawn to carefully examine the mucosa for any defects or lesions. Comprehensive imaging was accomplished throughout the rectum including the dentate line. The colon was decompressed, the scope was then removed from the patient who tolerated the procedure well. Pediatric colonoscope Bowel prep adequate Complications: none Impression: The patient had an extremely tortuous left colon. Navigation was very difficult. There was 1 small polyp perhaps 4 mm removed with cold snare in the transverse colon. There were 5 other polyps ranging in size from 4 to 8 mm in and around the hepatic flexure. These were removed by way of cold forceps (x1), cold snare (x2), and hot snare (x2). Endoscopic diagnosis 1. Multiple colon polyps 2. Tortuous left colon Post-procedure Plan for aftercare: 1. Await histopathology. 2. Consider repeat colonoscopy 3 years. Disposition: PACU
[2023-01-26 14:00] VITALS: BP 157/70; PULSE 75; RESP 14; O2SAT 96
[2023-01-26 14:08] VITALS: BP 138/63; PULSE 78; RESP 14; TEMP 36.7; O2SAT 96
[2023-01-26 14:15] VITALS: BP 170/76; PULSE 66; RESP 15; TEMP 36.4; O2SAT 100
== END 2023-01-26 14:30 | disposition home or self-care (01) ==
PROVIDERS: PCP Family Medicine; Referring Provider Internal Medicine Gastroenterology; Visit Provider Internal Medicine Gastroenterology
PROC: 0DJD8ZZ Inspection of Lower Intestinal Tract, Via Natural or Artificial Opening Endoscopic (ICD-10-PCS; CPT 45378; principal; 2023-01-26 13:00)
DX: Z12.11 Encounter for screening for malignant neoplasm of colon (principal); Z86.010 Personal history of colon polyps; D12.3 Benign neoplasm of transverse colon
CPT/HCPCS: 45385; 45380; J2704

== ENCOUNTER → 2023-03-23 12:54 | Outpatient (CLI) | payer MEDICARE, OTHER, SELFPAY ==
[2022-02-17 08:32] VITALS: BMI 30.7
--- NOTE | 2023-03-23 | DI.MG.S_ITS ---
BILATERAL DIGITAL SCREENING MAMMOGRAM 3D/2D WITH CAD: 03/23/2023 CLINICAL: Routine screening. Comparison is made to exams dated: 03/04/2022 mammogram, 02/18/2021 mammogram, and 01/25/2020 mammogram - [facility]. There are scattered areas of fibroglandular density in both breasts (category b / 25%-50% glandular tissue). Current study was also evaluated with a Computer Aided Detection (CAD) system. No significant masses, calcifications, or other findings are seen in either breast. There has been no significant interval change. IMPRESSION: NEGATIVE There is no mammographic evidence of malignancy. A 1 year screening mammogram is recommended. Based on the Tyrer Cuzick model (a risk assessment model) the patient's lifetime risk is 2.6% and her 10 year risk is 0.0%. According to the ACR, ACS, and NCCN guidelines, an annual breast MRI exam along with mammogram is recommended if the patient's lifetime risk is 20% or greater. This exam was interpreted at Station ID: [id number]. NOTE: For mammograms, a report in lay terms will be sent to the patient. Approximately 15% of breast malignancies will not be visualized mammographically. In the management of a palpable breast mass, a negative mammogram must not discourage biopsy of a clinically suspicious lesion. Electronically Signed By: Kalyan toledo/candido:03/24/2023 16:26:06 letter sent: Normal Exam ACR BI-RADS Category 1: Negative [id number]
== END ==
PROVIDERS: PCP Family Medicine; Referring Provider Family Medicine; Visit Provider Family Medicine
DX: Z12.31 Encounter for screening mammogram for malignant neoplasm of breast (principal)
CPT/HCPCS: 77063; 77067

== ENCOUNTER → 2023-08-07 11:54 | Outpatient (CLI) | payer MEDICARE, OTHER, SELFPAY ==
[2022-02-17 08:32] VITALS: BMI 30.7
== END ==
LOC: RESP 11:56
PROVIDERS: PCP Family Medicine; Referring Provider Orthopaedic Surgery; Visit Provider Orthopaedic Surgery
DX: Z01.818 Encounter for other preprocedural examination (principal)
CPT/HCPCS: 93005; 93010

== ENCOUNTER → 2023-08-18 10:52 | Outpatient (CLI) | payer MEDICARE, OTHER, SELFPAY ==
[2022-02-17 08:32] VITALS: BMI 30.7
[2023-08-18 11:38] LABS: Add Manual Diff / Slide Review NO; Basophils Absolute Auto 0 /uL (0-100); Basophils Percent Auto 0.5 % (0-2); Eosinophils Absolute Auto 100 /uL (0-450); Eosinophils Percent Auto 1.1 % (2-4); Hematocrit 30.9 % (36-46); Hemoglobin 10.6 g/dL (12.0-16.0); Lymphocytes Absolute Auto 1100 /uL (1100-4500); Lymphocytes Percent Auto 20.6 % (25-40); Mean Corpuscular HGB Conc 34.5 % (30-36); Mean Corpuscular Hemoglobin 35.9 PG (26-34); Monocytes Absolute Auto 300 /uL (0-900); Neutrophils Absolute Auto 3700 /uL (1500-7000); Neutrophils Percent Auto 71.8 % (50-75); Platelet Count 165 X10^3/uL (150-400); Red Blood Cell Count 2.97 X10^6/uL (4.0-5.2); Red Cell Distribution Width 13.1 % (11.6-14.8); White Blood Cell Count 5.1 X10^3/uL (4.5-11.0)
[2023-08-18 11:50] LABS: BUN Creatinine Ratio 35.8 (6-22); Blood Urea Nitrogen 48 mg/dL (7-17); Calcium 9.8 mg/dL (8.4-10.2); Carbon Dioxide 27 mmol/L (22-32); Chloride 109 mmol/L (98-107); Estimated Glomerular Filt Rate 41 mL/min (>60); Glucose 110 mg/dL (80-110); HEMOLYSIS < 15 (0-50); Potassium 5.1 mmol/L (3.4-5.1); Sodium 139 mmol/L (137-145)
== END ==
LOC: LAB 10:55
PROVIDERS: PCP Family Medicine; Referring Provider Orthopaedic Surgery; Visit Provider Orthopaedic Surgery
DX: Z01.812 Encounter for preprocedural laboratory examination (principal)
CPT/HCPCS: 36415; 80048; 85025

== ENCOUNTER → 2023-08-31 15:01 | Outpatient (CLI) | payer MEDICARE, OTHER, SELFPAY ==
[2022-02-17 08:32] VITALS: BMI 30.7
--- NOTE | 2023-08-31 16:01 | DI.MRI.S_ITS ---
PROCEDURE: MR BRAIN (IAC) WWO CON INDICATIONS: Dizziness, Imbalance, Lightheadedness, hearing los TECHNIQUE: Noncontrast sagittal T1 spin echo, axial FLAIR, axial gradient echo, axial diffusion and ADC through the brain. Axial thin-slice 3D CISS, coronal TruFISP, axial T1 spin echo with fat saturation through the internal auditory canals. After the administration of contrast, thin slice axial and coronal T1 spin echo with fat saturation through the internal auditory canals, and axial and coronal and sagittal T1 spin echo with fat saturation through the brain. COMPARISON: [facility], CT, HEAD WITHOUT CONTRAST, 05/12/2016, 18:22. FINDINGS: Image quality: Excellent. Cerebellopontine angles: No cerebellopontine angle masses. Inner ear structures appear normally formed. No suspicious enhancement in the internal auditory canal or along the course of the 7th cranial nerve. CSF spaces: Ventricles are normal in size and shape. No extra-axial fluid collections. Basal cisterns are patent. Brain: No intracranial bleeds or mass effects. Diaz-white matter interface is intact. No abnormal intracranial enhancement. Diffusion weighted images demonstrate no acute ischemic insults. Brainstem appears normal. Normal intravascular flow voids are present. Note is made of age-appropriate brain parenchymal volume loss and chronic small vessel ischemic changes. Skull and face: Calvarial marrow signal is normal. Orbits appear normal. Sinuses: Sinuses and mastoids are clear. IMPRESSION: No significant abnormality is seen. Specifically, no masses or abnormal enhancement are seen within the cerebellopontine angle cisterns or within the internal auditory canals. Note is made of age-appropriate brain parenchymal volume loss and chronic small vessel ischemic changes. Dictated by: Doug Phipps M.D. on 08/31/2023 at 15:31 Approved by: Doug Phipps M.D. on 08/31/2023 at 15:33
== END ==
PROVIDERS: PCP Family Medicine; Referring Provider Otolaryngology; Visit Provider Otolaryngology
DX: H90.3 Sensorineural hearing loss, bilateral (principal); R42 Dizziness and giddiness; R26.89 Other abnormalities of gait and mobility
CPT/HCPCS: 70553; A9579

== ENCOUNTER 2023-10-01 13:35 | Day surgery (SDC) | payer MEDICARE, OTHER, SELFPAY ==
[2022-02-17 08:32] VITALS: BMI 30.7
--- NOTE | 2023-09-02 08:05 | P.PN_ITS ---
Subjective Subjective Interval history: Severe HTN. Reviewed pt's chart with ALFREDA Thomson on 09/02/23. Pt is on four ant ihypertensive meds--carvedilol, amlodipine, HCTZ, and losartan--with BPs remaining in the 170-180s. She is under a precision farming specialist's care, and her recommendation as of 08/31/23 was to continue all of those meds the DOS as pt's blood pressure tends to soar. I recommended instead that we hold the losartan to avoid persistent hypotension intraop and have pt take an extra dose of her amlodipine the morning of surgery; pt normally only takes the amlodipine at night. EF on echo from 2022 is 40-45%. We can expect pt to be hypertensive preop, but hopefully we can manage this the DOS and proceed with the case. FOR[facility]LY [facility] Medical History Anemia Arthritis Martinez's esophagus Cardiomyopathy CKD (chronic kidney disease), stage III Colon polyps Constipation DDD (degenerative disc disease) Diabetes Easy bruisability Eczema Elevated cholesterol Fibromyalgia Frequent urinary tract infections GERD (gastroesophageal reflux disease) Gout Heart murmur HTN (hypertension) Hypokinesis Irregular heartbeat Kidney cysts Kidney disease Neuropathy Orbital fracture Osteoarthritis Pain Plantar fasciitis Pneumonia Psoriasis PUD (peptic ulcer disease) Renal insufficiency SCC (squamous cell carcinoma) Sciatica Sinus bradycardia Spinal stenosis Toxic shock syndrome (~1978) Uterine polyp (06/12/01) Surgical History H/O: hysterectomy History of arthroplasty of right knee (~2001) History of colonoscopy History of dilation and curettage History of hysteroscopy (02/15/88) History of surgery (~1987) Hx of arthroscopy of right knee (09/07/85) Hx of bladder repair surgery (03/02/18) Hx of cholecystectomy (04/15/89) Hx of repair of left rotator cuff (~2012) Hx of spinal fusion (12/28/15) Status post total shoulder arthroplasty (~2012) Social History household members: spouse Smoking Status: Never smoker alcohol intake: former
[2023-09-08 09:08] VITALS: BMI 27.8
[2023-10-01 14:30] VITALS: BP 221/107; PULSE 100; RESP 16; TEMP 37.6; O2SAT 100; BMI 27.8
[2023-10-01 15:06] LABS: BUN Creatinine Ratio 29.5 (6-22); Blood Urea Nitrogen 39 mg/dL (7-17); Carbon Dioxide 24 mmol/L (22-32); Chloride 109 mmol/L (98-107); Estimated Glomerular Filt Rate 42 mL/min (>60); Glucose 119 mg/dL (80-110); HEMOLYSIS < 15 (0-50); Potassium 4.5 mmol/L (3.4-5.1); Sodium 139 mmol/L (137-145)
--- NOTE | 2023-10-01 15:35 | PM.HP.1 ---
History of Present Illness History of Present Illness Date Patient Seen: 10/01/23 Time Patient Seen: 15:36 Chief complaint: SDC Narrative: This is a pleasant 77-year-old female here today for her right rotator cuff repair. Her pain has increased over the last couple of months while she has been waiting for surgery. She did have a respiratory illness which has now resolved. She still does have uncontrolled hypertension usually her blood pressures in the 180s. She has undergone extensive nonoperative management with 4 previous cortisone injections. Currently denies any distal numbness or tingling no other complaints today. FORMERLY [facility] Medical History Toxic shock syndrome (~1978) Sciatica Renal insufficiency PUD (peptic ulcer disease) Plantar fasciitis Osteoarthritis Hypokinesis DDD (degenerative disc disease) Sinus bradycardia Cardiomyopathy Kidney cysts Orbital fracture SCC (squamous cell carcinoma) CKD (chronic kidney disease), stage III Frequent urinary tract infections Gout Uterine polyp (06/12/01) Eczema Psoriasis Colon polyps Easy bruisability Anemia Kidney disease Spinal stenosis Fibromyalgia Pain Arthritis Diabetes Neuropathy Constipation Martinez's esophagus GERD (gastroesophageal reflux disease) Pneumonia Irregular heartbeat Heart murmur Elevated cholesterol HTN (hypertension) Surgical History (Updated 09/08/23 @ 09:13 by Irene Zaragoza RN) Hx of bilateral cataract extraction (2020) History of fusion of lumbar spine (04/04/19) Status post total shoulder arthroplasty (~2012) History of dilation and curettage Hx of bladder repair surgery (03/02/18) H/O: hysterectomy Hx of repair of left rotator cuff (~2012) History of colonoscopy Hx of arthroscopy of right knee (09/07/85) History of surgery (~1987) History of hysteroscopy (02/15/88) Hx of cholecystectomy (04/15/89) History of arthroplasty of right knee (~2001) Hx of spinal fusion (12/28/15) Social History household members: spouse Smoking Status: Never smoker alcohol intake: former Meds Home Medications and Allergies Home Medications Medication Instructions Recorded Confirmed Type CYANOCOBALAMIN (VITAMIN B-12) 1,000 mcg IJ Q 5 WEEKS ##0 10/14/10 01/26/23 History (Cyanocobalamin Injection) esomeprazole magnesium 40 mg 40 mg PO QPM ##0 10/14/10 10/01/23 History capsule,delayed release (Nexium) flaxseed oil 1,000 mg capsule 2,000 mg PO DAILY ##0 10/14/10 01/26/23 History losartan 100 mg tablet (Cozaar) 100 mg PO QDAY ##0 10/14/10 10/01/23 History multivitamin 1 cap PO DAILY ##0 10/14/10 01/26/23 History FERROUS GLUCONATE 325 mg PO SEE INSTRUCTIONS ##90 01/01/16 01/26/23 Rx carvedilol 12.5 mg tablet (Coreg) 12.5 mg PO BID 01/30/19 10/01/23 History magnesium chloride 71.5 mg 71.5 mg PO BID 01/30/19 01/26/23 History (magnesium chloride) tablet,delayed release (Slow-Mag) rosuvastatin 20 mg tablet (Crestor) 20 mg PO DAILY 01/30/19 10/01/23 History allopurinol 100 mg tablet 150 mg PO DAILY 03/16/19 10/01/23 History cholecalciferol (vitamin D3) 50 2,000 unit PO DAILY 04/04/19 10/01/23 History mcg (2,000 unit) capsule (Vitamin D3) acetaminophen 500 mg tablet 500 mg PO Q4H PRN pain (scale 04/07/19 10/01/23 Rx (Tylenol Extra Strength) score 1-3) #60 tabs amlodipine 5 mg tablet 5 mg PO DAILY 12/18/20 10/01/23 History aspirin 81 mg PO DAILY 12/18/20 10/01/23 History celecoxib 100 mg capsule 100 mg PO DAILY 12/18/20 10/01/23 History estradiol 0.01% (0.1 mg/gram) vaginal 12/18/20 History vaginal cream (Estrace) Allergies Allergy/AdvReac Type Severity Reaction Status Date / Time Penicillins [PENICILLINS] Allergy Severe ANAPHYLAXIS Verified 10/01/23 14:25 latex [LATEX] Allergy Mild RASH Verified 10/01/23 14:25 Fish Containing Products AdvReac Severe MY Verified 10/01/23 14:25 KIDNEY'S SHUT DOWN, VOMITING, BLACK URINE hydromorphone [From Dilaudid] AdvReac Severe Confusion Verified 10/01/23 14:25 lactose AdvReac Severe MY Verified 10/01/23 14:25 KIDNEY'S SHUT DOWN, VOMITING, BLACK URINE pantoprazole AdvReac Severe Stomach Verified 10/01/23 14:25 pain, tachycardia atorvastatin AdvReac Intermediate myalgias Verified 10/01/23 14:25 lorazepam [From Ativan] AdvReac Intermediate Very slow Verified 10/01/23 14:25 to wake up in recovery enalapril AdvReac Mild Irregular Verified 10/01/23 14:25 heartbeat-PACs Review of Systems Review of Systems ROS: Yes All systems reviewed with the patient and are negative except as otherwise documented Exam Vital Signs (past 8 hours): - 10/01/23 14:30 Temperature 99.6 F Pulse Rate 100 H Respiratory Rate 16 Blood Pressure 221/107 H Pulse Oximetry 100 Oxygen Delivery Method Room Air Oxygen Delivery Method Room Air Narrative Exam Narrative: HEENT: Head atraumatic eyes anicteric moist mucous membranes Cardiovascular: Palpable peripheral pulses extremities are warm and well perfused Respiratory: Breathing comfortably on room air Psychiatric: Appropriate mood and affect Neuro: No acute deficits Musculoskeletal: Exam of her upper extremity demonstrates pain with any elevation over 90?. No changes in her exam since I last saw her in clinic. Sensation intact to light touch median, radial, ulnar, axillary nerve distributions. 2+ radial pulse with brisk capillary refill less than 2 seconds Objective Labs 10/01/23 14:45 Labs: Laboratory Results - last 24 hr 10/01/23 14:45 Sodium 139 Potassium 4.5 Chloride 109 H Carbon Dioxide 24 BUN 39 H Creatinine 1.32 H Estimated GFR 42 L BUN/Creatinine Ratio 29.5 H Glucose 119 H Calcium 10.0 Assessment & Plan Assessment & Plan narrative: Assessment: Right rotator cuff syndrome, mild glenohumeral arthritis, AC arthritis, impingement syndrome Plan: Possible biceps tenodesis, subacromial decompression, rotator cuff repair as necessary and possible distal clavicle excision.
--- NOTE | 2023-10-01 16:05 | SUR.PREOP ---
B/p elevated see. flow sheet . dr. knapp and dr. Burrell notified and aware
[2023-10-01] MEDS: CEFAZOLIN 2 GM/100 ML PREMIX 100 ML IV (16:22)
[2023-10-01] MEDS: TRANEXAMIC ACID 1,000 MG VIAL 1000 MG INJ (16:28)
--- NOTE | 2023-10-01 16:40 | SUR.OPER ---
Lateral on padded OR bed with hayden bag positioner, head on pillow, gel axillary roll in place, bottom leg bent with gel pad under knee to foot, upper leg straight and supported with pillows. Operative arm secured in shoulder positioning suspension device. non-operative arm secured on padded arm board. Safety belt at hip, tape over blanket securing lower legs.
[2023-10-01] MEDS: BUPIVACAINE 0.25% (PF) 30 ML, EPINEPHrine 0.15 MG INJ (16:45)
--- NOTE | 2023-10-01 17:30 | PM.OP.1 ---
Operative Date/Time/Diagnoses Date of procedure: 10/01/23 Time of procedure: 17:30 Pre-op diagnosis: Right rotator cuff tear, subacromial impingement, biceps tendonitis, AC arthritis Post-op diagnosis: same Procedure & Clinicians Procedure: 1. Right rotator cuff repair 2. Right biceps tenodesis 3. Right distal clavicle excision 4. Extensive debridement right shoulder arthroscopic 5. Right subacromial decompression and acromioplasty Same procedure as scheduled: Yes Indications: Indications: Modesta is a 77-year-old female who Has a history of right shoulder pain. Has had no response thus far to nonoperative treatment. We discussed at length that surgery for a rotator cuff tear is primarily for pain and no guarantees were made regarding strength and range of motion. Patient was again explained the risks, benefits and alternatives to surgery. All questions were answered. The patient wished to proceed. Surgeon: Pablo Burrell Equipment Operator/Laborer/Supervisor: Sheila Shah Click Yes if Unassisted: No Anesthesia Type: General Operative Notes Findings: Findings: Glenohumeral joint-mild signs of osteoarthritis with grade 2-3 chondromalacia. There is degenerative changes noted to the labrum anteriorly and posteriorly Biceps tendon: Partial tears with synovitis and erythema throughout Subscapularis: Partial upper border tear Inferior capsule: Intact Rotator cuff: The supraspinatus had a complete tear at the footprint Subacromial space: Extensive synovitis, acromial spur noted AC joint: Extensive arthritis noted Closure Type: primary Specimen(s): none sent Prosthetic devices, grafts, tissues, transplants, or devices: SwiveLock x3 FiberTak x2 Estimated Blood Loss (mL): 25 Blood products transfused: none Procedure in detail: The patient was seen preoperatively. Risks and benefits were explained, and my initials were marked on the right shoulder. A block was performed by anesthesia. The patient was brought to the operating room and placed supine on the operating table and underwent smooth induction of general anesthesia. There were then placed into a lateral decubitus position. 2 g of Ancef were given intravenously prior to the start of the operation, and 1 g of TXA was also given. The arm was prepped and draped in the standard sterile fashion using chlorhexidine. Appropriate drying time was observed. Before beginning the procedure, a time-out was performed and again my initials were confirmed the correct side. 15 cc of 0.25% Marcaine with epinephrine were injected into the subacromial space prior to start. A standard posterior portal was then established. On entering the glenohumeral joint there was the above-noted cartilage pathology. An anterior portal was established outside in. In the glenohumeral joint, the biceps was noted to be partially torn and erythematous and the subscapularis was intact. The undersurface of the rotator cuff was torn at the footprint and was noted to be communicating. The inferior capsule was noted to be intact. There was some labral degeneration noted both anterior and posterior. Extensive synovitis noted. Biceps long head was noted to be frayed and irritated with partial tears. For this reason, the decision was made to perform a biceps tenodesis. A FiberWire was used to luggage tag the tendon with a separate loop made proximal to the tag for a loop and tack tendon capture.The subscapularis tendon was noted to be partially torn from the lesser tuberosity at the upper border. A luggage tag suture was placed into the upper border through a cannula.The sutures were then placed into a knotless anchor in the bicipital groove adjacent to the lesser tuberosity for a secure repair. The labral tissue was examined, it was noted to have [id number] degenerative changes with fraying and tearing. There was subsequent expected degenerative changes in synovitis along the anterior articular capsule and a reflection of the capsule onto the glenoid bone. There were synovitic changes at the biceps tendon and its anchor on the supraglenoid tubercle. For these aforementioned reasons, arthroscopic debridement was performed with a 4.0 mm shaver, through the anterior portal, of the labral tissue, the articular capsule, biceps anchor complex, and glenoid bone. We then established into the subacromial space and a lateral portal was made. A bursectomy was then performed. The coracoclavicular ligament was minimally released off the anterior acromion and a gentle acromioplasty was performed enough for better visualization and to remove significant spurs. This was done with a 4.0 mm shaver and transformed the acromion from a type 2 acromion into a type 1 acromion. Once bursectomy, acromioplasty was performed we had full visualization of the rotator cuff. It was noted at this time that the patient had complete 1.5 cm tear of the supraspinatus. We then freshened up the footprint with a shaver and debrided the cuff tear edges. Two medial row Anchors were placed. I then passed sequentially from anterior to posterior. 2 lateral row trans osseous equivalent knotless anchors were placed creating a secure double row repair. Final arthroscopic pictures were obtained demonstrating a secure repair. Last, I turned my attention to the acromioclavicular joint. There was extensive arthritis noted. Using a 4 mm bur through the anterior portal 8 mm of distal clavicle was resected. The wounds were closed with 3-0 Monocryl and dressed with Xeroform, 4x4s, ABDs and they were placed into a sling. Patient was woken from anesthesia and transported to recovery unit without any complications. Assisting participation: This operation could not have been safely performed (without compromising the technical results or length of the procedure) without the assistance of a skilled registered medical assistant. The registered medical assistant was medically necessary for proper positioning, retraction and manipulation of instruments, proper exposure, graft prep, and manipulation of tissue. Complications: none Post-operative Condition: stable Disposition: PACU Plan for aftercare: Postoperatively patient will be nonweightbearing to the operative extremity. Must remain in a sling for 6 weeks with no active range of motion. Okay for dressings to come off in 3 days, take a shower with warm soap and water and then placed Band-Aids over the wounds. After a total of 5 days from surgery all dressings may come off. Keep follow-up appointment in 2 weeks.
[2023-10-01 17:45] VITALS: BP 186/86; PULSE 84; RESP 21; TEMP 36.3; O2SAT 100
[2023-10-01 17:50] VITALS: BP 170/90; PULSE 79; RESP 20; TEMP 36.3; O2SAT 98
[2023-10-01 17:55] VITALS: BP 161/103; PULSE 78; RESP 18; TEMP 36.3; O2SAT 97
[2023-10-01 18:04] VITALS: BP 165/103; PULSE 66; RESP 17; TEMP 36.3; O2SAT 99
== END 2023-10-01 18:36 | disposition home or self-care (01) ==
PROVIDERS: Anesthesiology; PCP Family Medicine; Referring Provider Orthopaedic Surgery; Visit Provider Orthopaedic Surgery
PROC: (CPT 29827; principal; 2023-10-01 15:15)
DX: S46.001A Unspecified injury of muscle(s) and tendon(s) of the rotator cuff of right shoulder, initial encounter (principal); M75.21 Bicipital tendinitis, right shoulder; M25.811 Other specified joint disorders, right shoulder; G89.18 Other acute postprocedural pain; M19.011 Primary osteoarthritis, right shoulder; M94.211 Chondromalacia, right shoulder; M65.811 Other synovitis and tenosynovitis, right shoulder
CPT/HCPCS: 29827; 29828; 29823; 29826; 64415; 80048; J0171; J0690; J2405; J2704; J3010

== ENCOUNTER 2024-01-27 00:54 | Emergency (ER) | payer MEDICARE, OTHER, SELFPAY ==
[2022-02-17 08:32] VITALS: BMI 30.7
[2024-01-27 01:03] VITALS: BP 198/88; PULSE 71; RESP 20; TEMP 36.5; O2SAT 100; BMI 176.2
--- NOTE | 2024-01-27 01:11 | ED.FALL ---
HPI - Fall General Chief Complaint: Fall Stated Complaint: fall, rib pain and bleeding finger, Time Seen by Provider: 01/27/24 00:57 Source: patient and family Mode of arrival: Ambulatory History of Present Illness HPI Narrative: Patient is a 78-year-old female. Not on anticoagulation. Is here for evaluation of a fall. She thinks that she was coming out of the bathroom and tripped and fell. She did land on her right arm. Injured her right middle finger. Did hit the right side of her face. No loss of consciousness. No neck pain. She was had quite a bit of issues with balance recently. They had to use a gait belt at home to try to get her up. She has ambulated since the event. She thinks that maybe she broke a rib. She did cover the finger with a bandage prior to arrival. Related Data Home Medications Medication Instructions Recorded Confirmed CYANOCOBALAMIN (VITAMIN B-12) 1,000 mcg IJ Q 5 WEEKS ##0 10/14/10 01/26/23 (Cyanocobalamin Injection) esomeprazole magnesium 40 mg 40 mg PO QPM ##0 10/14/10 10/01/23 capsule,delayed release (Nexium) flaxseed oil 1,000 mg capsule 2,000 mg PO DAILY ##0 10/14/10 01/26/23 losartan 100 mg tablet (Cozaar) 100 mg PO QDAY ##0 10/14/10 10/01/23 multivitamin 1 cap PO DAILY ##0 10/14/10 01/26/23 carvedilol 12.5 mg tablet (Coreg) 12.5 mg PO BID 01/30/19 10/01/23 magnesium chloride 71.5 mg 71.5 mg PO BID 01/30/19 01/26/23 (magnesium chloride) tablet,delayed release (Slow-Mag) rosuvastatin 20 mg tablet (Crestor) 20 mg PO DAILY 01/30/19 10/01/23 allopurinol 100 mg tablet 150 mg PO DAILY 03/16/19 10/01/23 cholecalciferol (vitamin D3) 50 2,000 unit PO DAILY 04/04/19 10/01/23 mcg (2,000 unit) capsule (Vitamin D3) amlodipine 5 mg tablet 5 mg PO DAILY 12/18/20 10/01/23 aspirin 81 mg PO DAILY 12/18/20 10/01/23 celecoxib 100 mg capsule 100 mg PO DAILY 12/18/20 10/01/23 estradiol 0.01% (0.1 mg/gram) vaginal 12/18/20 vaginal cream (Estrace) Previous Rx's Medication Instructions Recorded FERROUS GLUCONATE 325 mg PO SEE INSTRUCTIONS ##90 01/01/16 acetaminophen 500 mg tablet 500 mg PO Q4H PRN pain (scale 04/07/19 (Tylenol Extra Strength) score 1-3) #60 tabs ondansetron HCl 4 mg tablet 4 mg PO Q8H PRN nausea and 10/01/23 vomiting #10 tabs Allergies Allergy/AdvReac Type Severity Reaction Status Date / Time Penicillins [PENICILLINS] Allergy Severe ANAPHYLAXIS Verified 10/01/23 14:25 latex [LATEX] Allergy Mild RASH Verified 10/01/23 14:25 Fish Containing Products AdvReac Severe MY Verified 10/01/23 14:25 KIDNEY'S SHUT DOWN, VOMITING, BLACK URINE hydromorphone [From Dilaudid] AdvReac Severe Confusion Verified 10/01/23 14:25 lactose AdvReac Severe MY Verified 10/01/23 14:25 KIDNEY'S SHUT DOWN, VOMITING, BLACK URINE pantoprazole AdvReac Severe Stomach Verified 10/01/23 14:25 pain, tachycardia atorvastatin AdvReac Intermediate myalgias Verified 10/01/23 14:25 lorazepam [From Ativan] AdvReac Intermediate Very slow Verified 10/01/23 14:25 to wake up in recovery enalapril AdvReac Mild Irregular Verified 10/01/23 14:25 heartbeat-PACs Review of Systems Review of Systems ROS Unobtainable: All systems reviewed & are unremarkable except as noted in HPI and below Patient History Medical History Toxic shock syndrome (~1978) Sciatica Renal insufficiency PUD (peptic ulcer disease) Plantar fasciitis Osteoarthritis Hypokinesis DDD (degenerative disc disease) Sinus bradycardia Cardiomyopathy Kidney cysts Orbital fracture SCC (squamous cell carcinoma) CKD (chronic kidney disease), stage III Frequent urinary tract infections Gout Uterine polyp (06/12/01) Eczema Psoriasis Colon polyps Easy bruisability Anemia Kidney disease Spinal stenosis Fibromyalgia Pain Arthritis Diabetes Neuropathy Constipation Martinez's esophagus GERD (gastroesophageal reflux disease) Pneumonia Irregular heartbeat Heart murmur Elevated cholesterol HTN (hypertension) Surgical History (Updated 09/08/23 @ 09:13 by Irene Zaragoza RN) Hx of bilateral cataract extraction (2020) History of fusion of lumbar spine (04/04/19) Status post total shoulder arthroplasty (~2012) History of dilation and curettage Hx of bladder repair surgery (03/02/18) H/O: hysterectomy Hx of repair of left rotator cuff (~2012) History of colonoscopy Hx of arthroscopy of right knee (09/07/85) History of surgery (~1987) History of hysteroscopy (02/15/88) Hx of cholecystectomy (04/15/89) History of arthroplasty of right knee (~2001) Hx of spinal fusion (12/28/15) Social History household members: spouse Smoking Status: Never smoker alcohol intake: former Smoking Status: Never smoker alcohol intake frequency: 0-2 drinks per day Substance Use Type: does not use Exam Initial Vital Signs Initial Vital Signs: Vital Signs Temperature 97.7 F 01/27/24 01:03 Pulse Rate 71 01/27/24 01:03 Respiratory Rate 20 01/27/24 01:03 Blood Pressure 198/88 H 01/27/24 01:03 Pulse Oximetry 100 01/27/24 01:03 Oxygen Delivery Method Room Air 01/27/24 01:03 Const General: cooperative, comfortable and No ill appearing HENMT Face and sinus: ecchymosis (Right cheek) Mouth: other (Contusion right side of lip) Chest Chest: No crepitus and No tenderness Resp Effort & Inspection: normal respiratory effort Auscultation: clear to auscultation bilaterally Cardio Rate: regular rate Rhythm: regular rhythm GI Inspection: normal to inspection Palpation: soft, No firm, No guarding and No tender Back/Spine/Pelvis Cervical Spine: No cervical spinal tenderness Skin Other: Contusion of the right side of the face. Has a 2 cm laceration volar aspect of the right middle finger in between the DIPJ and MCP joint. No active bleeding. Neuro General: patient alert, patient awake, patient oriented x3 and moves all extremities Extrem Other: Swelling to the proximal aspect of the right middle finger. Laceration to the volar aspect. Pelvis is stable. Upper and lower extremities unremarkable. Procedures Laceration Repair Laceration 1: Site: other (Middle finger) Side (If applicable): right Size (cm): 2 Description: linear Depth: simple, single layer Local Anesthetic: lidocaine 1% Amount of anesthesia used (mL): 4 Pre-repair: wound explored, irrigated extensively and deep structures intact Skin layer closed with: nylon Skin layer suture size: 4-0 Number of sutures: 4 Technique: simple, interrupted Orthopedic Splinting/Casting Injury #1: Side: right Upper Extremity Injury Location: finger Upper Extremity Immobilizer: aluminum form splint Post splinting neuro exam: intact Post splinting vascular exam: intact Placed by: Nursing Course Orders Ordered: ED Orders 01/27/24 01:11 CT facial bones wo con Stat CT head/brain wo con Stat XR hand RT min 3V Stat XR ribs RT min 3V w CXR1V Stat Discontinued Medications Bacitracin (Bacitracin Oint 0.9 Gm Pckt) 1 applic TOP NOW ONE Stop: 01/27/24 02:50 Lidocaine HCl (Lidocaine 1% 20 Ml) 20 ml INJ INTRA-OP ONE Stop: 01/27/24 01:13 Last Admin: 01/27/24 01:17 Dose: 20 ml Documented By: LESLEY Vital Signs Vital signs: Vital Signs - 8 hr 01/27/24 01:03 Temperature 97.7 F Pulse Rate 71 Respiratory Rate 20 Blood Pressure 198/88 H Pulse Oximetry 100 Oxygen Delivery Method Room Air MDM - Fall Imaging Data Extremity x-ray #1: Radiologist's Impression: PROCEDURE: XR HAND RT MIN 3V INDICATIONS: middle finger injury TECHNIQUE: 3 views of the hand(s) acquired. COMPARISON: None. FINDINGS: Bones: Background moderate degenerative changes throughout the hand and wrist. Mildly displaced fracture of the base of the 3rd proximal phalanx. Possible old fracture of the 5th metacarpal. Soft tissues: No suspicious calcifications. Soft tissue swelling particularly at the 3rd ray. IMPRESSION: Mildly displaced fracture of the base of the 3rd proximal phalanx. Background moderate degenerative changes. There is soft tissue swelling rib X-ray: Radiologist's Impression: PROCEDURE: XR RIBS RT MIN 3V W CXR 1V INDICATIONS: r lower mid axillary rib pain after fall TECHNIQUE: 2 views of the ribs were acquired, along with a single view chest. COMPARISON: None. FINDINGS: Surgical changes and devices: Cholecystectomy clips Bones and chest wall: No acute displaced fracture. Possible nondisplaced fracture is seen at the right 10th rib. Lungs and pleura: No dense airspace disease or pleural effusion Mediastinum: Normal heart size IMPRESSION: Possible nondisplaced fracture of the right 10th rib. If there is high concern for occult injury, consider repeat radiography or cross-sectional imaging. CT scan - head: Radiologist's Impression: PROCEDURE: CT HEAD/BRAIN WO CON INDICATIONS: fall with head injury TECHNIQUE: Noncontrast 4.5 mm thick angled axial sections acquired from the foramen magnum to the vertex, with coronal and sagittal reformats. For radiation dose reduction, the following was used: automated exposure control, adjustment of mA and/or kV according to patient size. COMPARISON: [facility], CT, HEAD WITHOUT CONTRAST, 05/12/2016, 18:22. FINDINGS: Image quality: Diagnostic CSF spaces: Basal cisterns are patent. Lateral ventricles are symmetric. Volume: Vascular calcifications. Periventricular white matter disease is commonly seen with chronic microangiopathy. Volume loss is present. These findings are moderate Brain: No acute hemorrhage. No gross loss of benoit-white differentiation Craniofacial structures: No acute displaced fracture. No significant paranasal sinus opacity IMPRESSION: No acute intracranial abnormality. Facial findings are separately dictated CT face: Radiologist's Impression: PROCEDURE: CT FACIAL BONES WO CON INDICATIONS: fall with R sided facial injury TECHNIQUE: Noncontrast 2.5 mm thick axial images acquired from the mandible through the frontal sinuses, with coronal and sagittal reformatting. For radiation dose reduction, the following was used: automated exposure control, adjustment of mA and/or kV according to patient size. COMPARISON: [facility], CT, FACIAL BONES WITHOUT CONTRAST, 05/12/2016, 19:07. FINDINGS: Image quality: Diagnostic Bones: No displaced fracture. Possible old deformities of the inferior orbital lynne. Nasal bone and septum are intact. Mandible is intact. Zygomatic arches and pterygoid plates are intact. No skull base fracture. Bilateral T imaging ear arthrosis Sinuses and mastoids: No significant opacification. Soft tissues: No fluid collections. Moderate right facial soft tissue contusion. Brain: Unremarkable, partially visualized. IMPRESSION: Right facial soft tissue contusion. No displaced fracture or fluid collections identified. [facility] Narrative Medical decision making narrative: Neurovascularly intact. Cervical spine cleared by nexus criteria. This does appear to be a mechanical fall or the patient lost her balance and fell. She does have a right rib fracture but no underlying lung pathology. Contusion of the right side of her face but her head CT and facial CT are unremarkable. Has a fractured finger. This was splinted as described above. Laceration was closed as described above. Will discharge patient home with return precautions. She expressed understanding and agreement with plan. Discharge Plan Departure Patient Disposition: Home Clinical Impression: Finger fracture, right, Laceration of finger, Fracture of rib, Contusion of face Instructions: DI for Rib Fracture, DI for Laceration Repair, DI for Finger Fracture, How to Prevent Falls Activity Restrictions/Additional Instructions: Continue to take all of your medications as directed. I would not be surprised if you develop some worsening bruising of the right side of your face to include a black eye. You can put ice over this area as needed. It does appear that you broke your 10th rib on the right side. You can take Tylenol/ibuprofen for this. Be sure that you are occasionally taking deep breaths. If you develop fevers or worsening problems breathing please return to the emergency department. The splint on your right finger should stay in place for the next week. The stitches do need to be removed in approximately 10 days. You can come to the walk-in clinic or your primary doctor back to the emergency department for this. After a week of being in the splint you can take it off and start to do [id number] exercises with your finger. Prescriptions: No Action Slow-Mag 71.5 mg tablet,delayed release (DR/EC) 71.5 mg PO BID rosuvastatin [Crestor] 20 mg tablet 20 mg PO DAILY carvedilol [Coreg] 12.5 mg tablet 12.5 mg PO BID losartan [Cozaar] 100 MG tablet 100 mg PO QDAY Qty: 0 CYANOCOBALAMIN (VITAMIN B-12) (Cyanocobalamin Injection) 1,000 mcg IJ Q 5 WEEKS Qty: 0 flaxseed oil 1,000 mg Capsule 2,000 mg PO DAILY Qty: 0 esomeprazole magnesium [Nexium] 40 MG capsule,delayed release(DR/EC) 40 mg PO QPM Qty: 0 Rx Instructions: Takes at 1800 multivitamin Capsule 1 cap PO DAILY Qty: 0 FERROUS GLUCONATE 325 mg PO SEE INSTRUCTIONS Qty: 90 0RF Rx Instructions: 1 tab M,W,F allopurinol 100 mg Tablet 150 mg PO DAILY cholecalciferol (vitamin D3) [Vitamin D3] 2,000 unit Capsule 2,000 unit PO DAILY acetaminophen [Tylenol Extra Strength] 500 mg tablet 500 mg PO Q4H PRN (Reason: pain (scale score 1-3)) Qty: 60 0RF Rx Instructions: take 1 tablet by mouth every 4 hours as needed for pain amlodipine 5 mg tablet 5 mg PO DAILY estradiol [Estrace] 0.01 % (0.1 mg/gram) cream VAGINAL celecoxib 100 mg capsule 100 mg PO DAILY aspirin 81 mg PO DAILY ondansetron HCl 4 mg tablet 4 mg PO Q8H PRN (Reason: nausea and vomiting) Qty: 10 0RF Referrals: Radhika Love MD [Primary Care Provider] - Stand Alone Forms: Patient Portal/API
[2024-01-27] MEDS: LIDOCAINE 1% 20 ML INJ (01:17)
[2024-01-27] MEDS: BACITRACIN OINT 0.9 GM PCKT 1 APPLIC TOP (03:12)
[2024-01-27 03:15] VITALS: BP 198/88; PULSE 68; RESP 16; TEMP 36.4; O2SAT 99
== END 2024-01-27 03:17 | disposition home or self-care (01) ==
PROVIDERS: Emergency Provider Emergency Medicine; PCP Family Medicine
DX: S62.612A Displaced fracture of proximal phalanx of right middle finger, initial encounter for closed fracture (principal); S22.31XA Fracture of one rib, right side, initial encounter for closed fracture; S61.212A Laceration without foreign body of right middle finger without damage to nail, initial encounter; S00.83XA Contusion of other part of head, initial encounter; W01.0XXA Fall on same level from slipping, tripping and stumbling without subsequent striking against object, initial encounter
CPT/HCPCS: 12001; 29130; 70450; 70486; 71101; 73130; 99283; 99284

== ENCOUNTER → 2024-03-15 11:41 | Outpatient (CLI) | payer MEDICARE, OTHER, SELFPAY ==
[2022-02-17 08:32] VITALS: BMI 30.7
--- NOTE | 2024-03-15 11:42 | DI.US.S_ITS ---
PROCEDURE: US RENAL COMPLETE INDICATIONS: CKD,KIDNEY CYST TECHNIQUE: Real-time scanning was performed of the kidneys and bladder, with image documentation. COMPARISON: [facility], , US RENAL COMPLETE, 05/23/2021, 15:09. FINDINGS: Kidneys: Kidneys are normal in size. Right kidney measures 10.6 cm long; left kidney measures 8.2 cm long. Right renal cortical thickness is 1.0 cm; left renal cortical thickness is 1.3 cm. Renal cortical echotexture is normal. No hydronephrosis or nephrolithiasis. No suspicious solid mass lesions. On the right, small simple renal cysts measure up to 1.6 cm. On the left, additional simple renal cysts measure up to 4.4 cm, previously 3.6 cm Bladder: Pre-void bladder volume is 24 mL. Post-void residual is 0 mL. Pre-void images demonstrate no intraluminal masses or stones. On pre-void images, neither ureteral jets are noted with color Doppler interrogation. (Of note, ureteral jets may not be detectable in up to 25% of cases due to insufficient differences in specific gravity between ureteral and bladder urine). Miscellaneous: No free pelvic fluid. IMPRESSION: Bilateral simple renal cysts, measuring slightly larger on the left. No shadowing calculi or hydronephrosis Approved by: Berto Faust M.D. on 03/15/2024 at 17:33
== END ==
LOC: US 11:42
PROVIDERS: PCP Family Medicine; Referring Provider Internal Medicine Nephrology; Visit Provider Internal Medicine Nephrology
DX: N18.32 Chronic kidney disease, stage 3b (principal); N28.1 Cyst of kidney, acquired
CPT/HCPCS: 76770

== ENCOUNTER → 2024-05-09 15:21 | Outpatient (CLI) | payer MEDICARE, OTHER, SELFPAY ==
[2022-02-17 08:32] VITALS: BMI 30.7
--- NOTE | 2024-05-09 15:22 | DI.MG.S_ITS ---
BILATERAL DIGITAL SCREENING MAMMOGRAM 3D/2D WITH CAD: 05/09/2024 CLINICAL: Routine screening. Comparison is made to exams dated: 03/23/2023 mammogram, 03/04/2022 mammogram, and 02/18/2021 mammogram - [facility]. There are scattered areas of fibroglandular density (category b / 25%-50% glandular tissue). Current study was also evaluated with a Computer Aided Detection (CAD) system. There is a possible asymmetry in the right breast anterior depth medial region seen on the craniocaudal view only. This is increased in size. No other significant masses, calcifications, or other findings are seen in either breast. IMPRESSION: INCOMPLETE: NEED ADDITIONAL IMAGING EVALUATION The possible asymmetry in the right breast is indeterminate. A diagnostic mammogram and ultrasound is recommended. Based on the Tyrer Cuzick model (a risk assessment model) the patient's lifetime risk is 2.3% and her 10 year risk is 0.0%. According to the ACR, ACS, and NCCN guidelines, an annual breast MRI exam along with mammogram is recommended if the patient's lifetime risk is 20% or greater. This exam was interpreted at Station ID: [id number]. NOTE: For mammograms, a report in lay terms will be sent to the patient. Approximately 15% of breast malignancies will not be visualized mammographically. In the management of a palpable breast mass, a negative mammogram must not discourage biopsy of a clinically suspicious lesion. Electronically Signed By: Kalyan toledo/candido:05/10/2024 10:17:47 letter sent: Additional Imaging Needed ACR BI-RADS Category 0: Incomplete: Need Additional Imaging Evaluation
== END ==
LOC: MAMMO 15:22
PROVIDERS: PCP Family Medicine; Referring Provider Family Medicine; Visit Provider Family Medicine
DX: Z12.31 Encounter for screening mammogram for malignant neoplasm of breast (principal)
CPT/HCPCS: 77063; 77067

== ENCOUNTER → 2024-06-06 | Outpatient (CLI) | payer MEDICARE, OTHER, SELFPAY ==
[2022-02-17 08:32] VITALS: BMI 30.7
--- NOTE | 2024-06-06 13:02 | DI.US.S_ITS ---
LIMITED ULTRASOUND OF RIGHT BREAST AND AXILLA: 06/06/2024 CLINICAL: Patient returns today to evaluate a focal asymmetry in the right breast. Comparison is made to exams dated: 06/06/2024 mammogram, 05/09/2024 mammogram, 03/23/2023 mammogram, 03/04/2022 mammogram, 02/18/2021 mammogram, and 01/25/2020 mammogram - [facility]. Color flow and real-time ultrasound of the right breast 3 o'clock, 5 o'clock, and axilla regions were performed. Diaz scale images of the real-time examination were reviewed. There is a benign 0.6 cm simple cyst in the right breast at 3 o'clock, 1 cm from the nipple. This correlates with mammography findings. There are additional incidental in smaller simple cysts seen at 5 o'clock, 1 cm from the nipple. IMPRESSION: BENIGN Right breast simple cyst at 3 o'clock position is benign. No mammographic or sonographic evidence of malignancy. A 1 year screening mammogram is recommended. Findings and recommendations were conveyed to the patient during today's evaluation. This exam was interpreted at Station ID: [id number]. Electronically Signed By: Andressa Rosa M.D., Ph.D. eb/:06/08/2024 08:42:47 letter sent: Normal Exam ACR BI-RADS Category 2: Benign
--- NOTE | 2024-06-06 13:03 | DI.MG.S_ITS ---
UNILATERAL RIGHT DIGITAL DIAGNOSTIC MAMMOGRAM 3D/2D WITH ADDITIONAL VIEWS: 06/06/2024 CLINICAL: Additional evaluation requested from prior study. Comparison is made to exams dated: 05/09/2024 mammogram, 03/23/2023 mammogram, and 03/04/2022 mammogram - [facility]. There are scattered areas of fibroglandular density (category b / 25%-50% glandular tissue). There is a focal asymmetry in the right breast at 3 o'clock anterior depth. This is seen in additional views. No other significant masses or calcifications are seen in the breast. IMPRESSION: INCOMPLETE: NEED ADDITIONAL IMAGING EVALUATION The focal asymmetry in the right breast is indeterminate. An ultrasound is recommended for further evaluation and is scheduled to immediately follow this examination. Based on the Tyrer Cuzick model (a risk assessment model) the patient's lifetime risk is 2.3% and her 10 year risk is 0.0%. According to the ACR, ACS, and NCCN guidelines, an annual breast MRI exam along with mammogram is recommended if the patient's lifetime risk is 20% or greater. This exam was interpreted at Station ID: [id number]. NOTE: For mammograms, a report in lay terms will be sent to the patient. Approximately 15% of breast malignancies will not be visualized mammographically. In the management of a palpable breast mass, a negative mammogram must not discourage biopsy of a clinically suspicious lesion. Electronically Signed By: Andressa Rosa M.D., Ph.D. eb/:06/08/2024 08:40:01 letter sent: Additional Imaging Needed ACR BI-RADS Category 0: Incomplete: Need Additional Imaging Evaluation
== END ==
LOC: MAMMO 13:02
PROVIDERS: PCP Family Medicine; Referring Provider Family Medicine; Visit Provider Family Medicine
DX: R92.8 Other abnormal and inconclusive findings on diagnostic imaging of breast (principal); N60.01 Solitary cyst of right breast
CPT/HCPCS: 76642; 77065; G0279

== ENCOUNTER → 2024-07-13 11:34 | Outpatient (CLI) | payer MEDICARE, OTHER, SELFPAY ==
[2022-02-17 08:32] VITALS: BMI 30.7
--- NOTE | 2024-07-13 11:37 | DI.RAD.S_ITS ---
PROCEDURE: XR DEXA AXIAL SKELETON INDICATIONS: SCREENING FOR OSTEOPOROSIS COMPARISON: [facility], [place], XR DEXA AXIAL SKELETON, 06/17/2022, 11:46. FINDINGS: Left Femoral Neck: Bone mineral density 0.721 g/cm2, T score -1.2. Left Hip: Bone mineral density is 0.781 g/cm2, T score -1.3. Since the most recent prior study, there has been a statistically significant decrease in bone mineral density by 6.3 %. Left Forearm: Bone mineral density is 0.538 g/cm2, T score -2.6. Since the most recent prior study, there has been a statistically significant decrease in bone mineral density by 9.8 %. Fracture Risk Calculation (when applicable): FRAX score not reported due to T-score less than -2.5. (T score greater or equal to -1.0 to: NORMAL) (T score from -1.1 to -2.4: OSTEOPENIA) (T score less than or equal to -2.5: OSTEOPOROSIS) IMPRESSION: 1. By WHO criteria, patient has osteoporosis. 2. Interval statistically significant decrease in bone mineral density at the left hip and left forearm. Follow-up guidelines as follows: Osteoporosis: Consider a repeat DEXA and Vertebral Fracture Assessment (VFA) exam in 2 years or sooner if medically necessary, to reassess this patient's status. Osteopenia: Consider a repeat DEXA in 2-3 years to reassess this patient's status, or if there is a new clinical indication. Normal: Consider a repeat DEXA in 5 years or sooner, or if there is a new clinical indication. All treatment decisions require clinical judgment and consideration of individual patient factors, including patient preferences, comorbidities, previous drug use, risk factors not captured in the FRAX model (e.g., frailty, falls, vitamin D deficiency, increased bone turnover, interval significant decline in bone density ) and possible under- or over-estimation of fracture risk by FRAX. In addition, the NOF Guide recommends that FDA-approved medical therapies be considered in postmenopausal women and men age >= 50 years with a: * Hip or vertebral (clinical or morphometric) fracture * T-score of <=-2.5 at the spine or hip * Ten-year fracture probability by FRAX of >= 3% for hip fracture or >=20% for major osteoporotic fracture. Approved by: Kalyan Horn M.D. on 07/13/2024 at 20:35
== END ==
LOC: RAD 11:36
PROVIDERS: PCP Family Medicine; Referring Provider Family Medicine; Visit Provider Family Medicine
DX: M81.0 Age-related osteoporosis without current pathological fracture (principal)
CPT/HCPCS: 77080; 77081

== ENCOUNTER → 2024-12-03 14:03 | Outpatient (CLI) | payer MEDICARE, OTHER, SELFPAY ==
[2022-02-17 08:32] VITALS: BMI 30.7
== END ==
PROVIDERS: PCP Family Medicine; Visit Provider Chiropractor
DX: R30.0 Dysuria (principal)
CPT/HCPCS: 87086

== ENCOUNTER 2025-01-04 12:54 | Emergency (ER) | payer MEDICARE, OTHER, SELFPAY ==
[2022-02-17 08:32] VITALS: BMI 30.7
[2025-01-04 13:40] VITALS: BP 152/67; PULSE 80; RESP 18; TEMP 36.6; O2SAT 100; BMI 25.7
--- NOTE | 2025-01-04 13:46 | DI.RAD.S_ITS ---
PROCEDURE: XR LUMBAR SPINE 2-3V INDICATIONS: Fall TECHNIQUE: 3 views of the lumbar spine were acquired. COMPARISON: [facility], CR, XR LUMBAR SPINE 2-3V, 04/04/2019, 12:12. FINDINGS: Bones: 5 [id number] vertebrae are present. Postsurgical changes are seen from posterior fixation at L3 through S1. Lucency is noted adjacent to the L3 pedicle screws and possibly the L4 pedicle screws that may indicate loosening. Mild dextroconvex curvature. No vertebral body compression fractures. No suspicious bony lesions. Multilevel disc space narrowing and degenerative endplate changes, most notably at the L2-3 level. Multilevel facet hypertrophy. Soft tissues: Overlying bowel gas pattern is normal. Aortic atherosclerotic calcifications. IMPRESSION: 1. Postsurgical changes again seen at L3 through S1. Mild lucency adjacent to the L3 pedicle screws and possibly the L4 pedicle screws may indicate loosening. 2. No acute osseous abnormality. 3. Multilevel spondylosis. Approved by: Kalyan Horn M.D. on 01/04/2025 at 14:33
--- NOTE | 2025-01-04 13:47 | DI.RAD.S_ITS ---
PROCEDURE: XR SACRUM COCCYX MIN 2V INDICATIONS: Fall TECHNIQUE: 3 views of the sacrum and coccyx acquired. COMPARISON: None. FINDINGS: Bones: Postsurgical changes are partially included in the lower lumbar spine. No acute fractures or dislocations. No suspicious bony lesions. Mild degenerative changes at the sacroiliac joints. Soft tissues: Visualized bowel gas pattern is normal. No suspicious soft tissue densities. IMPRESSION: No acute osseous abnormality. If symptoms persist or if there is continued clinical concern, cross-sectional imaging such as MRI or CT may be helpful for further evaluation. Approved by: Kalyan Horn M.D. on 01/04/2025 at 14:34
--- NOTE | 2025-01-04 13:47 | DI.RAD.S_ITS ---
PROCEDURE: XR PELVIS 1-2V INDICATIONS: Fall TECHNIQUE: Single AP view of the pelvis acquired. COMPARISON: None. FINDINGS: Bones: No acute fractures or dislocations. No suspicious bony lesions. Soft tissues: Visualized bowel gas pattern is normal. No suspicious soft tissue calcifications. IMPRESSION: No acute osseous abnormality. If symptoms persist or if there is continued clinical concern, cross-sectional imaging such as MRI or CT may be helpful for further evaluation. Approved by: Kalyan Horn M.D. on 01/04/2025 at 14:35
--- NOTE | 2025-01-04 14:20 | ED.BACK ---
HPI - Back Pain/Injury <Aimee Padron PA-C - Last Filed: 01/04/25 15:03> General Chief Complaint: Back Pain/Injury Stated Complaint: fell yesterday, in pain Time Seen by Provider: 01/04/25 13:26 Source: patient History of Present Illness HPI Narrative: Ms. Alex is a very pleasant 79-year-old female with a past medical history of CKD, anemia, fibromyalgia, hypertension, hyperlipidemia, degenerative disc disease s/p lumbar fusion, anemia, osteoarthritis who presents to the emergency department with her for tailbone pain after a fall yesterday afternoon. Patient states she was walking down the ramp at [email or web address], using her cane, when she started going too quickly and when she got to the bottom of the ramp approaching her car she fell onto her buttocks and then fell backward and hit the back of her head. Patient states that she hit the back of her head lightly but she hit her tailbone quite hard. There was no loss of consciousness, headache, nausea, vomiting, dizziness, confusion, visual disturbance or other symptoms after the head strike. She was able to stand up with the help of passerby's and has been ambulating with her cane since. She took Tylenol last night for her tailbone pain however it has persisted. She also reports some low back pain and neck stiffness that has been going on for some time now but this pain is not any worse from the fall. Denies any precipitating symptoms such as chest pain, shortness of breath, dizziness. No rib pain, fevers, chills, dysuria, abdominal pain, flank pain, upper or lower extremity pain. Patient is primarily concerned about her tailbone. States that she did actually write her tailbone many years ago during childbirth. Besides Tylenol usually other medication that has worked for her in the past is sometimes tramadol. No blood thinners. Related Data Home Medications ?Medication ?Instructions ?Recorded ?Confirmed CYANOCOBALAMIN (VITAMIN B-12) 1,000 mcg IJ Q 5 WEEKS ##0 10/14/10 12/03/24 (Cyanocobalamin Injection) esomeprazole magnesium 40 mg 40 mg PO QPM ##0 10/14/10 12/03/24 capsule,delayed release (Nexium) flaxseed oil 1,000 mg capsule 2,000 mg PO DAILY ##0 05/16/11 07/05/25 losartan 100 mg tablet (Cozaar) 100 mg PO QDAY ##0 10/14/10 12/03/24 multivitamin 1 cap PO DAILY ##0 10/14/10 12/03/24 carvedilol 12.5 mg tablet (Coreg) 12.5 mg PO BID 01/30/19 12/03/24 magnesium chloride 71.5 mg 71.5 mg PO BID 01/30/19 12/03/24 (magnesium chloride) tablet,delayed release (Slow-Mag) rosuvastatin 20 mg tablet (Crestor) 20 mg PO DAILY 01/30/19 12/03/24 allopurinol 100 mg tablet 150 mg PO DAILY 03/16/19 12/03/24 cholecalciferol (vitamin D3) 50 2,000 unit PO DAILY 04/04/19 12/03/24 mcg (2,000 unit) capsule (Vitamin D3) amlodipine 5 mg tablet 5 mg PO DAILY 12/18/20 12/03/24 aspirin 81 mg PO DAILY 12/18/20 12/03/24 celecoxib 100 mg capsule 100 mg PO DAILY 12/18/20 12/03/24 estradiol 0.01% (0.1 mg/gram) vaginal 12/18/20 12/03/24 vaginal cream (Estrace) Previous Rx's ?Medication ?Instructions ?Recorded FERROUS GLUCONATE 325 mg PO SEE INSTRUCTIONS ##90 01/01/16 acetaminophen 500 mg tablet 500 mg PO Q4H PRN pain (scale 04/07/19 (Tylenol Extra Strength) score 1-3) #60 tabs ondansetron HCl 4 mg tablet 4 mg PO Q8H PRN nausea and 10/01/23 vomiting #10 tabs tramadol 50 mg tablet 50 mg PO Q8H PRN pain #10 tabs 01/04/25 Allergies Allergy/AdvReac Type Severity Reaction Status Date / Time Penicillins (PENICILLINS) Allergy Severe ANAPHYLAXIS Verified 01/04/25 13:40 latex (LATEX) Allergy Mild RASH Verified 01/04/25 13:40 Fish Containing Products AdvReac Severe MY Verified 01/04/25 13:40 KIDNEY'S SHUT DOWN, VOMITING, BLACK URINE hydromorphone (From Dilaudid) AdvReac Severe Confusion Verified 01/04/25 13:40 lactose AdvReac Severe MY Verified 01/04/25 13:40 KIDNEY'S SHUT DOWN, VOMITING, BLACK URINE pantoprazole AdvReac Severe Stomach Verified 01/04/25 13:40 pain, tachycardia atorvastatin AdvReac Intermediate myalgias Verified 01/04/25 13:40 lorazepam (From Ativan) AdvReac Intermediate Very slow Verified 01/04/25 13:40 to wake up in recovery enalapril AdvReac Mild Irregular Verified 01/04/25 13:40 heartbeat-PACs Review of Systems <Aimee Padron PA-C - Last Filed: 01/04/25 15:03> Review of Systems ROS Unobtainable: All systems reviewed & are unremarkable except as noted in HPI and below Patient History <Aimee Padron PA-C - Last Filed: 01/04/25 15:03> Medical History Toxic shock syndrome (~1978) Sciatica Renal insufficiency PUD (peptic ulcer disease) Plantar fasciitis Osteoarthritis Hypokinesis DDD (degenerative disc disease) Sinus bradycardia Cardiomyopathy Kidney cysts Orbital fracture SCC (squamous cell carcinoma) CKD (chronic kidney disease), stage III Frequent urinary tract infections Gout Uterine polyp (06/12/01) Eczema Psoriasis Colon polyps Easy bruisability Anemia Kidney disease Spinal stenosis Fibromyalgia Pain Arthritis Diabetes Neuropathy Constipation Martinez's esophagus GERD (gastroesophageal reflux disease) Pneumonia Irregular heartbeat Heart murmur Elevated cholesterol HTN (hypertension) Surgical History Hx of bilateral cataract extraction (2020) History of fusion of lumbar spine (04/04/19) Status post total shoulder arthroplasty (~2012) History of dilation and curettage Hx of bladder repair surgery (03/02/18) H/O: hysterectomy Hx of repair of left rotator cuff (~2012) History of colonoscopy Hx of arthroscopy of right knee (09/07/85) History of surgery (~1987) History of hysteroscopy (02/15/88) Hx of cholecystectomy (04/15/89) History of arthroplasty of right knee (~2001) Hx of spinal fusion (12/28/15) Social History household members: spouse Smoking Status: Never smoker alcohol intake: former Smoking Status: Never smoker alcohol intake frequency: 0-2 drinks per day Exam <Aimee Padron PA-C - Last Filed: 01/04/25 15:03> Narrative Exam Narrative: GENERAL: 79 year old patient appears stated age. Elderly patient, in no acute distress. HEAD: Atraumatic. Normocephalic. EYES: PERRL. Extraocular motions intact. No scleral icterus. No injection or drainage. ENT: Normal pearly benoit TMs bilaterally. Nose without bleeding, purulent drainage. Throat without erythema, tonsillar hypertrophy or exudate. Airway patent. NECK: Trachea midline. Cervical ROM intact. No midline spinal tenderness. CARDIOVASCULAR: Regular rate and rhythm. RESPIRATORY: ?Nonlabored respirations. ?Speaking in clear, full sentences. ?Clear to auscultation. Breath sounds equal bilaterally. No wheezes, rales, or rhonchi. ? GASTROINTESTINAL: Abdomen soft, non-tender, nondistended. Bowel sounds present. No rib tenderness. EXTREMITIES: No tenderness to palpation of bilateral wrists, elbows, shoulders, ankles, knees, hips. BACK: Patient has ecchymosis at the top of the gluteal cleft overlying the tailbone region. There is tenderness in this region. There is no midline lumbar tenderness or paraspinal lumbar tenderness. Healed lumbar surgical incisions. No thoracic tenderness. NEURO: AOx3. ?Clear speech. ?No facial asymmetry. Ambulates with cane. SKIN: No rash or erythema of visible areas. No open wounds. Initial Vital Signs Initial Vital Signs: Vital Signs Temperature 97.8 F 01/04/25 13:40 Pulse Rate 80 01/04/25 13:40 Respiratory Rate 18 01/04/25 13:40 Blood Pressure 152/67 H 01/04/25 13:40 Pulse Oximetry 100 01/04/25 13:40 Oxygen Delivery Method Room Air 01/04/25 13:40 <Clari Wilson MD - Last Filed: 01/07/25 08:04> Initial Vital Signs Initial Vital Signs: Vital Signs Temperature 97.8 F 01/04/25 13:40 Pulse Rate 80 01/04/25 13:40 Respiratory Rate 18 01/04/25 13:40 Blood Pressure 152/67 H 01/04/25 13:40 Pulse Oximetry 100 01/04/25 13:40 Oxygen Delivery Method Room Air 01/04/25 13:40 Course <Aimee Padron PA-C - Last Filed: 01/04/25 15:03> Orders Ordered: Discontinued Medications Acetaminophen (Acetaminophen 325 Mg Tablet) 650 mg PO NOW ONE Stop: 01/04/25 13:48 Last Admin: 01/04/25 14:42 Dose: Not Given Documented By: LM Tramadol HCl (Tramadol 50 Mg Tablet) 50 mg PO NOW ONE Stop: 01/04/25 14:37 Last Admin: 01/04/25 14:56 Dose: 50 mg Documented By: LM Vital Signs Vital signs: Vital Signs - 8 hr 01/04/25 13:40 Temperature 97.8 F Pulse Rate 80 Respiratory Rate 18 Blood Pressure 152/67 H Pulse Oximetry 100 Oxygen Delivery Method Room Air <Clari Wilson MD - Last Filed: 01/07/25 08:04> Orders Ordered: Discontinued Medications Acetaminophen (Acetaminophen 325 Mg Tablet) 650 mg PO NOW ONE Stop: 01/04/25 13:48 Last Admin: 01/04/25 14:42 Dose: Not Given Documented By: LM Tramadol HCl (Tramadol 50 Mg Tablet) 50 mg PO NOW ONE Stop: 01/04/25 14:37 Last Admin: 01/04/25 14:56 Dose: 50 mg Documented By: LM Vital Signs Vital signs: Vital Signs - 8 hr 01/04/25 13:40 Temperature 97.8 F Pulse Rate 80 Respiratory Rate 18 Blood Pressure 152/67 H Pulse Oximetry 100 Oxygen Delivery Method Room Air MDM - Back Pain/Injury <Aimee Padron PA-C - Last Filed: 01/04/25 15:03> Medical Records Attestation: I reviewed the patient's medical records. Imaging Data Lumbar XR: Radiologist's Impression: PROCEDURE: XR LUMBAR SPINE 2-3V INDICATIONS: Fall TECHNIQUE: 3 views of the lumbar spine were acquired. COMPARISON: [facility], , XR LUMBAR SPINE 2-3V, 04/04/2019, 12:12. FINDINGS: Bones: 5 [id number] vertebrae are present. Postsurgical changes are seen from posterior fixation at L3 through S1. Lucency is noted adjacent to the L3 pedicle screws and possibly the L4 pedicle screws that may indicate loosening. Mild dextroconvex curvature. No vertebral body compression fractures. No suspicious bony lesions. Multilevel disc space narrowing and degenerative endplate changes, most notably at the L2-3 level. Multilevel facet hypertrophy. Soft tissues: Overlying bowel gas pattern is normal. Aortic atherosclerotic calcifications. IMPRESSION: 1. Postsurgical changes again seen at L3 through S1. Mild lucency adjacent to the L3 pedicle screws and possibly the L4 pedicle screws may indicate loosening. 2. No acute osseous abnormality. 3. Multilevel spondylosis. Approved by: Kalyan Horn M.D. on 01/04/2025 at 14:33 Pelvis XR: Radiologist's Impression: PROCEDURE: XR PELVIS 1-2V INDICATIONS: Fall TECHNIQUE: Single AP view of the pelvis acquired. COMPARISON: None. FINDINGS: Bones: No acute fractures or dislocations. No suspicious bony lesions. Soft tissues: Visualized bowel gas pattern is normal. No suspicious soft tissue calcifications. IMPRESSION: No acute osseous abnormality. If symptoms persist or if there is continued clinical concern, cross-sectional imaging such as MRI or CT may be helpful for further evaluation. Approved by: Kalyan Horn M.D. on 01/04/2025 at 14:35 Sacrum and Coccyx X-ray: Radiologist's Impression: PROCEDURE: XR SACRUM COCCYX MIN 2V INDICATIONS: Fall TECHNIQUE: 3 views of the sacrum and coccyx acquired. COMPARISON: None. FINDINGS: Bones: Postsurgical changes are partially included in the lower lumbar spine. No acute fractures or dislocations. No suspicious bony lesions. Mild degenerative changes at the sacroiliac joints. Soft tissues: Visualized bowel gas pattern is normal. No suspicious soft tissue densities. IMPRESSION: No acute osseous abnormality. If symptoms persist or if there is continued clinical concern, cross-sectional imaging such as MRI or CT may be helpful for further evaluation. Approved by: Kalyan Horn M.D. on 01/04/2025 at 14:34 MDM Narrative Medical decision making narrative: 79-year-old female with a past medical history of CKD, anemia, fibromyalgia, hypertension, hyperlipidemia, degenerative disc disease s/p lumbar fusion, anemia, osteoarthritis who presents to the emergency department with her for tailbone pain after a fall yesterday afternoon. Differential diagnosis includes but is not limited to coccygeal fracture, sacral fracture, hardware failure, lumbar fracture, tailbone contusion, sprain, strain, contusion, etc. Patient initially evaluated in triage by attending physician and orders placed. X-ray lumbar spine, pelvis, sacrum and coccyx ordered. On physical exam, patient is in no acute distress, nontoxic appearing, no focal neurologic deficits or signs of basilar skull fracture. She does have bruising and tenderness at the top of the gluteal cleft and along the tailbone. No midline lumbar tenderness. She is able to ambulate with a cane. Patient does have history of hitting the back of her head, attending ED physician determined not necessary in triage, after further discussion with the patient, she declines LOC, headache, nausea vomiting, visual disturbance, dizziness or significant pain. She is agreeable to avoiding head CT today but we discussed strict ED return precautions and reasons that she would need to have a CT done. Patient took Tylenol which not with help with the pain, she does have history of CKD, denies hydrocodone/oxycodone but states the tramadol has worked for her in the past. 50 mg tramadol ordered while x-ray studies are pending. X-rays reveal postsurgical changes seen L3 through S1, mild lucency adjacent to L3 pedicle screws possibly L4 pedicle screws may indicate loosening, no acute osseous abnormality. No acute osseous abnormality on pelvic x-ray or sacral x-ray. Discussed supportive care with the patient including donut pillow, avoiding prolonged sitting, Tylenol and tramadol for pain, ice. Advised prompt follow up with the PCP for further management. Discussed strict ED return precautions. Patient and verbalized understanding of all information agreeable with the plan. She is ambulatory and stable for discharge home. Discharge Plan Departure Patient Disposition: Home Clinical Impression: Fall Qualifiers: Encounter type: initial encounter Qualified Code(s): W19.XXXA - Unspecified fall, initial encounter Contusion of coccyx Qualifiers: Encounter type: initial encounter Qualified Code(s): S30.0XXA - Contusion of lower back and pelvis, initial encounter Instructions: DI for Coccyx Fracture Activity Restrictions/Additional Instructions: Dear Ms. Alex, Thank you for coming to the emergency department. Today you were evaluated for tailbone pain after a fall. Your x-rays today did not reveal any broken bones however you do have significant bruising of the tailbone and I would like you to treated as if it is broken by resting, using a donut pillow, using pain medication, avoiding prolonged sitting. Please follow up with your primary care doctor for further evaluation and further management. Please follow up with your primary care doctor within the next 2-3 days for ER follow-up. (If you do not have a PCP you can call [phone]. ?to schedule an appointment with an [facility] Primary Care Provider) IF YOU DEVELOP ANY NEW OR WORSENING SYMPTOMS, RETURN TO THE ER! Please read the attached instructions, they highlight more specific treatments and interventions for you at home. Thank you for letting me participate in your care, Aimee Padron PA-C Prescriptions: New tramadol 50 mg tablet 50 mg PO Q8H PRN (Reason: pain) Qty: 10 0RF No Action Slow-Mag 71.5 mg tablet,delayed release (DR/EC) 71.5 mg PO BID rosuvastatin [Crestor] 20 mg tablet 20 mg PO DAILY carvedilol [Coreg] 12.5 mg tablet 12.5 mg PO BID losartan [Cozaar] 100 MG tablet 100 mg PO QDAY Qty: 0 CYANOCOBALAMIN (VITAMIN B-12) (Cyanocobalamin Injection) 1,000 mcg IJ Q 5 WEEKS Qty: 0 flaxseed oil 1,000 mg Capsule 2,000 mg PO DAILY Qty: 0 esomeprazole magnesium [Nexium] 40 MG capsule,delayed release(DR/EC) 40 mg PO QPM Qty: 0 Rx Instructions: Takes at 1800 multivitamin Capsule 1 cap PO DAILY Qty: 0 FERROUS GLUCONATE 325 mg PO SEE INSTRUCTIONS Qty: 90 0RF Rx Instructions: 1 tab M,W,F allopurinol 100 mg Tablet 150 mg PO DAILY cholecalciferol (vitamin D3) [Vitamin D3] 2,000 unit Capsule 2,000 unit PO DAILY acetaminophen [Tylenol Extra Strength] 500 mg tablet 500 mg PO Q4H PRN (Reason: pain (scale score 1-3)) Qty: 60 0RF Rx Instructions: take 1 tablet by mouth every 4 hours as needed for pain amlodipine 5 mg tablet 5 mg PO DAILY estradiol [Estrace] 0.01 % (0.1 mg/gram) cream VAGINAL celecoxib 100 mg capsule 100 mg PO DAILY aspirin 81 mg PO DAILY ondansetron HCl 4 mg tablet 4 mg PO Q8H PRN (Reason: nausea and vomiting) Qty: 10 0RF Referrals: Radhika Love MD [Primary Care Provider, Family Practice] Stand Alone Forms: Patient Portal/API ED Sign-out <Clari Wilson MD - Last Filed: 01/07/25 08:04> Cosign ED Attending Cosignature Attestation: I was immediately available in the department for consultation throughout this patient's visit. Clari Wilson MD
[2025-01-04] MEDS: TRAMADOL 50 MG TABLET PO (14:56)
[2025-01-04 15:11] VITALS: RESP 18
== END 2025-01-04 15:12 | disposition home or self-care (01) ==
PROVIDERS: Emergency Provider Physician Assistant; PCP Family Medicine
DX: S30.0XXA Contusion of lower back and pelvis, initial encounter (principal); S09.90XA Unspecified injury of head, initial encounter; W18.30XA Fall on same level, unspecified, initial encounter
CPT/HCPCS: 72100; 72170; 72220; 99283

== ENCOUNTER → 2025-03-15 07:36 | Outpatient (CLI) | payer MEDICARE, OTHER, SELFPAY ==
[2025-01-18 22:58] VITALS: BMI 23.1
--- NOTE | 2025-03-15 | DI.NM.S_ITS ---
PROCEDURE: NM UPTAKE AND SCAN RADIOPHARMACEUTICAL: 427 ???Ci I-123 sodium iodide by mouth. INDICATIONS: Hyperthyroidism TECHNIQUE: I-123 sodium iodide was administered orally. Anterior neck images were obtained, and iodine uptake by the thyroid gland calculated using electric plater's software. COMPARISON: [facility], , THYROID, 01/19/2025, 9:08. FINDINGS: Morphology: The thyroid gland appears enlarged. Relative photopenic defect in the inferior left and inferior right thyroid lobe are noted. Uptake: 6 hour thyroid uptake is 55.8 % ; normal ranges are from 6-18%. 24 hour thyroid uptake is 94.4 % ; normal ranges are from 10-30%. IMPRESSION: Possible cold nodules in the inferior right and inferior left thyroid gland. Recommend percutaneous ultrasound-guided biopsy. Markedly elevated 6 hour and 24 hour I-123 uptake. Dictated by: Aidee Rodriguez M.D. on 03/16/2025 at 11:46 Approved by: Aidee Rodriguez M.D. on 03/16/2025 at 11:52
== END ==
LOC: NUCM 07:37
PROVIDERS: PCP Family Medicine; Referring Provider Family Medicine; Visit Provider Family Medicine
DX: E05.90 Thyrotoxicosis, unspecified without thyrotoxic crisis or storm (principal)
CPT/HCPCS: 78014; A9516

== ENCOUNTER → 2025-03-31 13:02 | Outpatient (CLI) | payer MEDICARE, OTHER, SELFPAY ==
[2025-01-18 22:58] VITALS: BMI 23.1
--- NOTE | 2025-03-31 | PATH_ITS ---
Note [facility] Accession Number: [id number] TESTS RESULT FLAG UNITS REF RANGE LAB Clinician Provided Cytology Information No. of containers..02 Previously Prepared Cytology Slide 35 Unknown Storage/container code(s) Source: RIGHT THYROID NODULE DIAGNOSIS: RIGHT THYROID NODULE ATYPIA OF UNDETERMINED SIGNIFICANCE. [place] CATEGORY III. ATYPIA OF UNDETERMINED SIGNIFIANCE - NUCLEAR ATYPIA. MOLECULAR STUDIES PENDING; RESULTS WILL BE REPORTED SEPARATELY. Pathologist ICD10: R89.6 Signed out by: Alma Sy MD, Pathologist NPI- [id number] Performed by: Kj Diaz, Insurance Special Agent ([facility]) Gross description: 30 CC, CIOLORLESS, CLEAR RECIEVED: IN CYTOLYT WITH 6 ALCOHOL FIXED AND 6 QUICK STAINED SLIDES ALSO 1 RNA VIAL WILL ON 06-16-2026.VO /VDU 04/03/2025 0947 [facility] FLAG LEGEND: L-Low Normal,H-High Normal,LL-Alert Low,HH-Alert High <-Panic Low,>-Panic High,A-Abnormal,AA-Critical Abnormal Performed at: 01 [address] [facility], [place] [address] Pop Hammer MD, Performed at: [address], [place], [place] [id number] MD Pop Hammer MD Phone: [phone]
--- NOTE | 2025-03-31 13:05 | DI.US.S_ITS ---
PROCEDURE: US FINE NEEDLE ASPIRATION INDICATIONS: Hyperthyroidism TECHNIQUE: The indications, alternatives, benefits, risks, and complications of the procedure were explained to the patient. Written informed consent was obtained and placed in the chart. The thyroid region was examined sonographically and a site was chosen for ultrasound guided percutaneous sampling. The skin was prepared and draped in the usual fashion, and anesthetized with 1% lidocaine infiltrated from the skin down to the thyroid gland. Multiple passes were then performed, with contents emptied into an appropriate pathology specimen container. A bandage was applied to the area of access at completion of the study. COMPARISON: [facility], US, US THYROID, 01/19/2025, 9:08. FINDINGS: Location(s) of lesion(s) sampled: Right inferior nodule measuring 2 cm. [place]: 25 gauge hypodermic needles. Number of passes: 6 Medications: 1% lidocaine for local anaesthesia. Complications: None. IMPRESSION: Successful ultrasound-guided thyroid nodule fine needle aspiration, with cytology results pending. Please see chart below for management recommendations based on cytology results. [facility] ReportingRecommendationsNon-diagnostic* Repeat US-guided FNA, with on-site cytology evaluation if possible. * Repeated non-diagnostic nodules without high suspicion US features: close observation vs surgical consult. * Consider surgery if nodule has high suspicion US features, grows >20% in 2 dimensions on followup, or patient has clinical risk factors for malignancy. Benign* If nodule has high suspicion US features: repeat US and FNA within 12 months. * If nodule has low to intermediate suspicion US features: repeat US at 12-24 months. If nodule grows (20% increase in at least 2 dimensions, with minimal increase of 2 mm or >50% change in volume), or development of new suspicious US features, then repeat FNA or continue followup. * If nodule has very low suspicion US features: followup US at >24 months. Atypia of undetermined significance, follicular lesion of undetermined significanceRepeat FNA, molecular testing, followup US, or surgical consult.Follicular neoplasm, suspicious for follicular neoplasmSurgical consult; also consider molecular testing. Suspicious for malignancySurgical consult.MalignantSurgical consult. Dictated by: Anali MYERS Interpreted: Andrei Carnes MD on 03/31/2025 at 15:04 Transcribed by: REE on 03/31/2025 at 15:05 Approved by: Andrei Carnes M.D. on 03/31/2025 at 20:06
== END ==
LOC: US 13:04
PROVIDERS: PCP Family Medicine; Visit Provider Radiology Diagnostic Radiology
DX: E05.90 Thyrotoxicosis, unspecified without thyrotoxic crisis or storm (principal); E04.1 Nontoxic single thyroid nodule
CPT/HCPCS: 10005